=== PATIENT | male | born 1945 | race Caucasian/White ===

== ENCOUNTER 2017-04-10 07:30 | Inpatient (IN) | payer MEDICARE, OTHER ==
[~2017-04-10] VITALS: Ht 182.9 cm; Wt 63.7 kg
[2017-05-25] VITALS (28 sets, daily range): BP systolic 82–150; BP diastolic 60–85; PULSE 66–96; RESP 16–22; Ht 182.9 cm; Wt 63.7 kg
[2017-05-25] MEDS ORDERED: CEFAZOLIN 1 GM INJ ONE (07:00)
[2017-05-25] MEDS ORDERED: SUGAMMADEX SODIUM 200 MG/2 ML VIAL IV ONE (07:00)
[2017-05-25] MEDS ORDERED: MORP15TA92 PO (08:03)
--- NOTE | 2017-05-25 08:03 | HPN ---
Date/Time of Note Date/Time of Note DATE: 05/25/17 TIME: 08:03 Interval H&P Admission Note Pt. seen H&P reviewed: No system changes KARYN LOGAN MD May 25, 2017 08:03
[2017-05-25] MEDS ORDERED: METF500T4 PO (08:05)
[2017-05-25] MEDS ORDERED: LISI10TA2 PO (08:06)
[2017-05-25] MEDS ORDERED: THROMBIN 5000 UNIT VIAL ONE (08:16)
[2017-05-25] MEDS ORDERED: GELATIN SIZE 100 SPONGE ONE (08:16)
[2017-05-25] MEDS ORDERED: BUPIVACAINE 0.25%/EPI (SDV) 30 ML INJ ONE (08:16)
[2017-05-25] MEDS ORDERED: POLYMYXIN/BACITRACIN 1L IRRIG ONE (08:16)
[2017-05-25 08:42] LABS: INR 0.98
[2017-05-25 08:43] LABS: PARTIAL THROMBOPLASTIN TIME 31.5 Sec (25.0-35.0)
[2017-05-25 08:53] LABS: ALBUMIN 4.7 g/dl (3.3-4.9); ALBUMIN/GLOBULIN RATIO 1.42; BASOPHIL # 0.1 10^3/ul (0.0-0.1); BASOPHILS % 0.6 % (0.0-2.0); BILIRUBIN,INDIRECT 0.2 mg/dl (0-1.1); BILIRUBIN,TOTAL 0.2 mg/dl (0.2-1.3); EOSINOPHILS # 0.3 10^3/ul (0.0-0.5); EOSINOPHILS % 1.9 % (0.0-7.0); HEMATOCRIT 44.2 % (42.0-52.0); HEMOGLOBIN 14.3 g/dl (14.0-18.0); LYMPHOCYTES # 1.9 10^3/ul (0.8-2.9); LYMPHOCYTES % 13.7 % (15.0-51.0); MEAN CORPUSCULAR HEMOGLOBIN 30.1 pg (29.0-33.0); MEAN CORPUSCULAR HGB CONC 32.4 g/dl (32.0-37.0); MEAN CORPUSCULAR VOLUME 93.1 fl (82.0-101.0); MEAN PLATELET VOLUME 10.8 fl (7.4-10.4); MONOCYTE # 0.9 10^3/ul (0.3-0.9); NEUTROPHIL # 10.3 10^3/ul (1.6-7.5); NEUTROPHILS % 76.4 % (39.0-77.0); PLATELET COUNT 535 10^3/UL (140-415); RED BLOOD COUNT 4.75 10^6/ul (4.70-6.10); RED CELL DISTRIBUTION WIDTH 13.9 % (11.5-14.5); WHITE BLOOD COUNT 13.5 10^3/ul (4.8-10.8)
[2017-05-25 09:03] LABS: CALCIUM 10.1 mg/dl (8.4-10.2); CREATININE 0.77 mg/dl (0.61-1.24); POTASSIUM 4.1 mmol/L (3.5-5.1)
[2017-05-25] MEDS ORDERED: MIDAZOLAM 1 MG/ML 2 ML INJ ONE (09:06)
[2017-05-25] MEDS ORDERED: ROCURONIUM 50 MG INJ ONE (09:06)
[2017-05-25] MEDS ORDERED: GLYCOPYRROLATE 1 MG INJ ONE (09:06)
[2017-05-25] MEDS ORDERED: PROPOFOL 20 ML ONE (09:06)
[2017-05-25] MEDS ORDERED: LIDOCAINE 2% (SDV) 5 ML INJ ONE (09:06)
[2017-05-25] MEDS ORDERED: NEOSTIGMINE 3 MG/3 ML SYRINGE ONE (09:06)
[2017-05-25] MEDS ORDERED: FENTAnyl 50 MCG/ML VIAL ONE (09:07)
[2017-05-25] MEDS ORDERED: ONDANSETRON 4 MG INJ ONE (09:07)
[2017-05-25] MEDS ORDERED: DEXAMETHASONE 4 MG/ML 1 ML INJ ONE (09:07)
[2017-05-25] MEDS ORDERED: LABETALOL HCL 20MG INJ ONE (10:28)
--- NOTE | 2017-05-25 13:18 | OPR ---
Date/Time of Note Date/Time of Note DATE: 05/25/17 TIME: 13:12 Operative Report Free Text/Dictation DATE OF OPERATION: 05/25/2017 PREOPERATIVE DIAGNOSES: L3-4 spinal stenosis with neurogenic claudication POSTOPERATIVE DIAGNOSES: L3-4 spinal stenosis with neurogenic claudication OPERATION PERFORMED: L4-5 bilateral laminectomy, medial facetectomy, and foraminotomy SURGEON: Karyn Logan MD ANESTHESIA: General endotracheal ESTIMATED BLOOD LOSS: 100 mL SURGICAL INDICATION: The patient is a 72 year-old male who presents with a chronic history of worsening bilateral lower extremity pain that is exacerbated with walking and relieved with rest and lumbar flexion. The patient was unable to ambulate significant distances secondary to their pain. He was found to have severe spinal stenosis at L3-4 with a grade 1 degenerative spondylolisthesis which appeared stable on flexion-extension films. Risks, benefits, and alternatives to a decompressive procedure with possible instrumented fusion including but not exclusive of risks of bleeding, infection, nerve injury, cauda equina syndrome, iatrogenic instability requiring future fusion, dural tear, myocardial infarction, stroke, pulmonary embolism were explained to the patient, and he wished to proceed. He reported that he would like to avoid a fusion given the longer recovery and associated risks. DESCRIPTION OF TECHNIQUE: The patient was identified in the preoperative area and taken to the operating room. Rapid induction of general endotracheal anesthesia was performed. Patient was given 2 g of cefazolin for prophylaxis. The patient was then placed in the prone position on the Hugo table on top of a Farzad frame with all bony prominences well padded. The back was prepped and draped in usual sterile manner. Using a spinal needle and intraoperative fluoroscopy, the L3-4 level was clearly identified. The skin was injected using 0.25% Marcaine with epinephrine. Longitudinal midline incision was then created using a 10 blade. Further dissection through soft tissue was performed using electrocautery down to the spinous processes bilaterally. Dissection was taken down the bilateral lamina and over the facet joint capsule. A self-retaining retractor was applied. Again, intraoperative fluoroscopy confirmed the level. A rongeur was used to remove a portion of the L3 spinous process and the interspinous ligaments. We identified the interlaminar window. The microscope was brought into use for microdissection. The high-speed bur was used to thin the L3 lamina. Kerrison rongeurs were then used to resect a portion of the bilateral laminae, and a portion of the bilateral medial facets and the bone overlying the foramens. Ligamentum flavum was also resected using the Kerrison rongeurs. Care was taken to protect the thecal sac throughout the decompressive procedure. Palpation with a ball-tip probe did not reveal any further stenosis in the central, subarticular, or foraminal areas. The bilateral L3 and L4 pedicles were palpated using a rigo to ensure a pedicle to pedicle decompression. The exiting L3 nerve root and traversing L4 nerve roots were both directly visualized and noted to be decompressed. The cephalad and caudad extent of the decompression were also confirmed using ball-tip probes and intraoperative fluoroscopy. The wound was irrigated copiously using normal saline. Meticulous attention was paid toward hemostasis using bipolar cautery, FloSeal and thrombin. Care was taken to remove all FloSeal prior to wound closure. The fascia was then closed using 0 Vicryl in interrupted fashion. Subcutaneous tissue was closed using 2-0 Vicryl in interrupted fashion. Skin was closed using a running 4-0 Monocryl stitch. The wound was dressed using Dermabond, sterile gauze and Tegaderm. The patient was returned to the supine position. They were extubated immediately postoperatively and taken to the recovery room in stable condition. COMPLICATIONS: None. Estimated Blood Loss: 100 - 150 ml's Complications: None Pt Condition Post Procedure: stable Disposition: PACU KARYN LOGAN MD May 25, 2017 13:18
[2017-05-25] MEDS ORDERED: ONDANSETRON 4 MG INJ IV PRN (13:30)
[2017-05-25] MEDS ORDERED: NACL 0.9% 3 ML SYG IV SCH (13:30)
[2017-05-25] MEDS ORDERED: NALOXONE (0.4 MG/ML) INJ IV PRN (13:30)
[2017-05-25] MEDS ORDERED: HYDROCODONE/APAP (5/325) TAB PO PRN (13:30)
[2017-05-25] MEDS ORDERED: HYDROmorphONE 1 MG/ML SYG IV PRN (13:30)
[2017-05-25] MEDS ORDERED: ACETAMINOPHEN 325 MG TAB PO PRN (13:30)
[2017-05-25] MEDS ORDERED: HYDROmorphONE 1 MG/ML SYG IV STA (14:04)
[2017-05-25] MEDS ORDERED: HYDROmorphONE (0.2 MG/ML) 10ML SYG IV ONE (14:06)
--- NOTE | 2017-05-25 15:16 | RADRPT ---
PROCEDURE: Intraoperative fluoroscopy. CLINICAL INDICATION: Intraoperative fluoroscopy during L3-4 decompression. TECHNIQUE: 5 spot intraoperative fluoroscopic images were provided. The images were reviewed on a high-resolution PACS workstation. COMPARISON: None available FINDINGS: Multiple spot intraoperative fluoroscopic views were provided during L3-4 decompression. The images demonstrate initial metallic probe at the L3-4 level. Of note, the lowest intervertebral discs is at L5-S1. Subsequent images demonstrate metallic instrumentation at the level of L3-4. The total f luoroscopy time was 8.7 seconds. IMPRESSION: 1. Multiple spot intraoperative fluoroscopic views during lumbar spine surgery were provided. 2. Please see operative report of the same day for further information. RPTAT: HGAS .Quinton Guzmán MD, Date Time Electronically viewed and signed by .Quinton Guzmán MD, on 05/25/2017 15:16 .S/
[2017-05-25] MEDS: CEFAZOLIN 1 GM/50 ML (PMX) 50 ML IVPB SCH ×2 (17:53→23:55)
[2017-05-25] MEDS ORDERED: TAMSULOSIN (SR) 0.4 MG CAP PO ONE (18:00)
--- NOTE | 2017-05-25 19:18 | CONS ---
Date/Time of Note Date/Time of Note DATE: 05/25/17 TIME: 19:08 Assessment/Plan Assessment/Plan Problems: (1) Type 2 diabetes mellitus without complications Status: Chronic Comment: Cont. metformin. Diabetic diet. Check A1c. Check fasting lipids. Monitor glucose via FS. If not at goal, adjust therapy. (2) Essential (primary) hypertension Status: Chronic Comment: Cont. lisinopril and monitor (3) Lumbar spinal stenosis Status: Resolved Comment: Per primary team (4) Aftercare following surgery of the musculoskeletal system Status: Acute Comment: Doing well POD#0. Pain controlled. PT and pain management per primary team. Pt. stable from medical standpoint. Will monitor for medical issues should they arise. Consultation Date/Type/Reason Admit Date/Time May 25, 2017 at 06:41 Date of Consultation: May 25, 2017 Type of Consultation: Medicine Reason for Consultation Medical Management Referring Provider: KARYN LOGAN MD Hx of Present Illness 72 y/o C M w/ h/o T2DM and HTN in [facility] until 30-40 y. 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 Has suffered chronic back pain since then. Has sought help of chiropractic which was useful but never curative. Pt. was forced to retire 4 y. ago when he was overcome by pain radiating down his legs and could no longer stand at his carroll chair for haircuts. Since then pt. continued to suffer until saw new PMD recently who referred him to ortho who performed MRI and decided spinal stenosis was surgical. Pt. had lumbar lami today and is POD#0 and doing well. Constitutional: improved, no complaints Eyes: no complaints ENT: no complaints Respiratory: no complaints Cardiovascular: no complaints Gastrointestinal: no complaints Genitourinary: no complaints Musculoskeletal: other (pains in legs he feels is residual from yesterday) Neurologic: no complaints Past Medical History Medical History: diabetes, hypertension, other (alcoholic hepatitis) Past Surgical History Past Surgical Hx: other (R knee meniscecktomy) Family History Significant Family History: hypertension (father) Social History b. 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, , no children Alcohol Use: sober (previously heavy) Smoking Status: Former smoker (3.5 ppd x 14 y, quit 1969) Drug Use: marijuana (both therapeutic and recreational) Exam/Review of Systems Vital Signs Vitals VS - Last 72 Hours, by Label Date Time Temp Pulse Resp B/P Pulse Ox O2 Delivery O2 Flow Rate FiO2 05/25/17 16:00 80 135/72 05/25/17 15:45 81 134/81 05/25/17 15:30 85 137/79 05/25/17 15:15 75 129/73 05/25/17 15:05 97.7 72 18 125/74 99 05/25/17 15:00 84 121/79 05/25/17 14:45 87 131/70 05/25/17 14:30 74 130/70 05/25/17 14:16 68 17 117/72 98 Room Air 05/25/17 14:15 78 138/71 05/25/17 14:11 70 17 115/69 100 Room Air 05/25/17 14:06 68 17 112/75 98 Room Air 05/25/17 14:01 70 17 132/74 99 Room Air 05/25/17 14:00 73 133/68 05/25/17 13:56 66 17 125/75 99 Room Air 05/25/17 13:51 66 18 138/73 99 Room Air 05/25/17 13:46 68 18 122/73 100 Room Air 05/25/17 13:45 72 125/74 05/25/17 13:41 70 17 117/68 99 Room Air 05/25/17 13:36 70 17 122/74 98 Room Air 05/25/17 13:31 76 17 117/62 99 Room Air 05/25/17 13:29 78 17 124/69 100 Room Air 05/25/17 13:26 76 17 82/61 100 Room Air 05/25/17 13:21 78 17 109/60 100 Room Air 05/25/17 13:16 98.2 70 18 122/74 99 Room Air 05/25/17 08:40 97.6 96 16 129/82 97 Room Air Vital Signs Date Time Temp Pulse Resp B/P Pulse Ox O2 Delivery O2 Flow Rate FiO2 05/25/17 16:00 80 135/72 05/25/17 15:05 97.7 18 99 05/25/17 14:16 Room Air Exam Constitutional: alert, oriented, well developed Psych: nl mood/affect, no complaints Eyes: EOMI, PERRL, nl conjunctiva, nl lids, nl sclera ENMT: mucosa pink and moist, nl external ears & nose Neck: non-tender, supple, No bruits, No masses, No thyromegaly Respiratory: clear to auscultation, normal air movement Cardiovascular: nl pulses, regular rate and rhythm, No edema, No murmurs/extra sounds, No rub Gastrointestinal: bowel sounds, nl liver, spleen, non-tender, soft, No mass, No rebound or guarding Musculoskeletal: nl extremities to inspection Extremities: normal pulses, No clubbing, No cyanosis, No edema Neurological: 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 MANAGER II-XII intact, nl mental status, nl speech, nl strength Results Result Diagram: 05/25/17 0800 05/25/17 0800 Results 24 hrs Laboratory Tests Test 05/25/17 08:00 05/25/17 08:26 05/25/17 13:32 White Blood Count 13.5 H Red Blood Count 4.75 Hemoglobin 14.3 Hematocrit 44.2 Mean Corpuscular Volume 93.1 Mean Corpuscular Hemoglobin 30.1 Mean Corpuscular Hemoglobin Concent 32.4 Red Cell Distribution Width 13.9 Platelet Count 535 H Mean Platelet Volume 10.8 H Neutrophils % 76.4 Lymphocytes % 13.7 L Monocytes % 7.0 Eosinophils % 1.9 Basophils % 0.6 Nucleated Red Blood Cells % 0.0 Neutrophils # 10.3 H Lymphocytes # 1.9 Monocytes # 0.9 Eosinophils # 0.3 Basophils # 0.1 Nucleated Red Blood Cells # 0.0 Prothrombin Time 13.0 Prothrombin Time Ratio 1.0 INR International Normalized Ratio 0.98 Activated Partial Thromboplast Time 31.5 Sodium Level 145 H Potassium Level 4.1 Chloride Level 103 Carbon Dioxide Level 27 Anion Gap 19 H Blood Urea Nitrogen 23 H Creatinine 0.77 Glucose Level 164 Calcium Level 10.1 Total Bilirubin 0.2 Direct Bilirubin 0.00 Indirect Bilirubin 0.2 Aspartate Amino Transf (AST/SGOT) 23 Alanine Aminotransferase (ALT/SGPT) 21 Alkaline Phosphatase 115 Total Protein 8.0 Albumin 4.7 Globulin 3.30 H Albumin/Globulin Ratio 1.42 Bedside Glucose 164 146 Medications Medications Current Medications Acetaminophen/ Hydrocodone Bitart ([place] (5/325)) 1 tab Q4H PRN PO PAIN LEVEL 1 -5; Start 05/25/17 at 13:30 Acetaminophen/ Hydrocodone Bitart 2 tab 2 tab Q4H PRN PO PAIN LEVEL 6-10; Start 05/25/17 at 13:30 Cefazolin Sodium (Ancef 1 Gm/50 ml (Pmx)) 50 ml @ 100 mls/hr Q6 IVPB Last administered on 05/25/17t 17:53; Admin Dose 100 MLS/HR; Start 05/25/17 at 18:00 ; Stop 05/26/17 at 12:29 Ondansetron HCl (Zofran Inj) 4 mg Q6H PRN IV NAUSEA AND/OR VOMITING; Start at 13:30 Acetaminophen (Tylenol Tab) 650 mg Q4H PRN PO TEMP GREATER THAN 101F OR HAILE; Start 05/25/17 at 13:30 Naloxone HCl (Narcan) 0.2 mg Q2M PRN IV RR 8 BREATHS/MIN OR LESS; Start at 13:30 Hydromorphone HCl (Dilaudid) 1 mg Q4H PRN IV PAIN; Start 05/25/17 at 13:30 Lisinopril (Zestril) 10 mg DAILY PO ; Start 05/26/17 at 09:00 SAMANTA FRAIRE MD May 25, 2017 19:18
[2017-05-25] MEDS ORDERED: DEXTROSE 50% 50 ML SYRINGE IV PRN ×2 (19:30)
[2017-05-25] MEDS ORDERED: GLUCAGON 1 MG INJ IM PRN (19:30)
[2017-05-25] MEDS ORDERED: GLUCOSE GEL 15 GRAM TUBE BUCCAL PRN (19:30)
[2017-05-25] MEDS ORDERED: GLUCOSE GEL 15 GRAM TUBE PO PRN ×2 (19:30)
[2017-05-25] MEDS: INSULIN ASPART [NOVOLOG] 3 ML PEN SC SCH (21:00)
[2017-05-25] MEDS: HYDROCODONE/APAP (5/325) TAB PO PRN (21:36)
[2017-05-26] MEDS ORDERED: ACCU-CHEK XX SCH ×2 (02:00)
[2017-05-26] MEDS: HYDROCODONE/APAP (5/325) TAB PO PRN ×3 (04:11→17:10)
[2017-05-26 05:20] VITALS: BP 142/78; PULSE 100
[2017-05-26] MEDS: CEFAZOLIN 1 GM/50 ML (PMX) 50 ML IVPB SCH ×2 (05:20→13:23)
[2017-05-26 05:36] LABS: HEMATOCRIT 27.8 % (42.0-52.0); HEMOGLOBIN 10.5 g/dl (14.0-18.0)
[2017-05-26 06:12] LABS: CALCIUM 8.9 mg/dl (8.4-10.2); CREATININE 0.73 mg/dl (0.61-1.24); POTASSIUM 3.7 mmol/L (3.5-5.1)
[2017-05-26 06:55] LABS: CHOL/HDL RATIO 3.4 RATIO
[2017-05-26] MEDS ORDERED: metFORMIN 500 MG TAB PO SCH (07:50)
[2017-05-26] MEDS: INSULIN ASPART [NOVOLOG] 3 ML PEN SC SCH ×2 (07:50→11:40)
[2017-05-26 08:28] VITALS: BP 118/56; RESP 20
[2017-05-26] MEDS ORDERED: LISINOPRIL 10 MG TAB PO SCH (09:00)
--- NOTE | 2017-05-26 12:31 | CONS ---
Date/Time of Note Date/Time of Note DATE: 05/26/17 TIME: 12:25 Consultation Date/Type/Reason Admit Date/Time May 25, 2017 at 06:41 Initial Consult Date 05/25/17 Type of Consultation: Ortho Spine Progress Note Referring Provider: KARYN LOGAN MD 24 HR Interval Summary Free Text/Dictation S: 72 yo Male POD#1 s/p L3-4 decompression for severe spinal stenosis. Patient had no acute events over-night. Was OOB today with PT who is recommending rehab. His pain is being well controlled with PO meds. Urinating well after freitas removal yesterday. O: Tm 98.4, HR: 80-107, BP: 118-150/56-85, Hemovac: 145 in 24 hours (5 mL in last 5 hrs) Gen: AAOx3, NAD Spine: Incision C/D/I, 4/5 B/L HF/KE/TA/GS/EHL, +SILT L3-S1 b/l Labs: H&H 10.5/27.8 A/P:72 yo Male POD#1 s/p L3-4 decompression for severe spinal stenosis. 1. Consult for rehab (pt lives on own and has not been ambulatory for past several years, he ambulates around house with walker.) 2. appreciate med recs Diabetes 3. OOB and WBAT w/ walker w/ PT 4. Continue PO pain control w/ [place] 5. Transfer to rehab when accepted 6. D/C drain Exam/Review of Systems Vital Signs Vitals Vital Signs Date Time Temp Pulse Resp B/P Pulse Ox O2 Delivery O2 Flow Rate FiO2 05/26/17 08:28 98.1 104 20 118/56 99 05/25/17 14:16 Room Air Intake and Output 05/25/17 05/25/17 05/26/17 15:00 23:00 07:00 Intake Total 1700 ml 440 ml 650 ml Output Total 175 ml 360 ml 410 ml Balance 1525 ml 80 ml 240 ml Results Result Diagram: 05/26/17 0442 05/26/17 0442 Results 24 hrs Laboratory Tests Test 05/25/17 13:32 05/25/17 20:02 05/26/17 04:42 05/26/17 08:18 Bedside Glucose 146 176 115 Hemoglobin 10.5 #L Hematocrit 27.8 #L Sodium Level 140 Potassium Level 3.7 Chloride Level 102 Carbon Dioxide Level 26 Anion Gap 16 Blood Urea Nitrogen 24 H Creatinine 0.73 Glucose Level 124 # Hemoglobin A1c 5.5 Calcium Level 8.9 Triglycerides Level 65 Cholesterol Level 107 LDL Cholesterol, Calculated 63 HDL Cholesterol 31 Cholesterol/HDL Ratio 3.4 Medications Medications Current Medications Acetaminophen/ Hydrocodone Bitart ([place] (5/325)) 1 tab Q4H PRN PO PAIN LEVEL 1 -5; Start 05/25/17 at 13:30 Acetaminophen/ Hydrocodone Bitart 2 tab 2 tab Q4H PRN PO PAIN LEVEL 6-10 Last administered on 05/26/17 08:56; Admin Dose 2 TAB; Start 05/25/17 at 13:30 Cefazolin Sodium (Ancef 1 Gm/50 ml (Pmx)) 50 ml @ 100 mls/hr Q6 IVPB Last administered on 05/26/17 05:20; Admin Dose 100 MLS/HR; Start 05/25/17 at 18:00 ; Stop 05/26/17 at 12:29 Ondansetron HCl (Zofran Inj) 4 mg Q6H PRN IV NAUSEA AND/OR VOMITING; Start at 13:30 Acetaminophen (Tylenol Tab) 650 mg Q4H PRN PO TEMP GREATER THAN 101F OR HAILE; Start 05/25/17 at 13:30 Naloxone HCl (Narcan) 0.2 mg Q2M PRN IV RR 8 BREATHS/MIN OR LESS; Start at 13:30 Hydromorphone HCl (Dilaudid) 1 mg Q4H PRN IV PAIN Last administered on 07:02; Admin Dose 1 MG; Start 05/25/17 at 13:30 Lisinopril (Zestril) 10 mg DAILY PO Last administered on 05/26/17 08:57; Admin Dose 10 MG; Start 05/26/17 at 09:00 Diagnostic Test (Pha) (Accu-Chek) 1 ea 02 XX ; Start 05/26/17 at 02:00 Miscellaneous Information 1 ea NOTE XX ; Start 05/25/17 at 19:30 Glucose (Glutose) 15 gm Q15M PRN PO DECREASED GLUCOSE; Start 05/25/17 at 19:30 Glucose (Glutose) 22.5 gm Q15M PRN PO DECREASED GLUCOSE; Start 05/25/17 at 19: 30 Dextrose (D50w Syringe) 25 ml Q15M PRN IV DECREASED GLUCOSE; Start 05/25/17 at 19:30 Dextrose (D50w Syringe) 50 ml Q15M PRN IV DECREASED GLUCOSE; Start 05/25/17 at 19:30 Glucagon (Glucagen) 1 mg Q15M PRN IM DECREASED GLUCOSE; Start 05/25/17 at 19:30 Glucose (Glutose) 15 gm Q15M PRN BUCCAL DECREASED GLUCOSE; Start 05/25/17 at 19 :30 KARYN LOGAN MD May 26, 2017 12:31
--- NOTE | 2017-05-26 14:24 | CONS ---
Date/Time of Note Date/Time of Note DATE: 05/26/17 TIME: 14:17 Assessment/Plan Assessment/Plan Problems: (1) Type 2 diabetes mellitus without complications Status: Chronic Comment: Excellent glycemic control. Home control excellent on metformin. Cont. metformin. (2) Essential (primary) hypertension Status: Chronic Comment: Excellent BP control. Cont. current regimen (3) Aftercare following surgery of the musculoskeletal system Status: Acute Comment: Doing well POD#1 w/ good pain control. However, ambulation was not optimal and pt. will need rehab. Primary team planning ARU transfer. Consultation Date/Type/Reason Admit Date/Time May 25, 2017 at 06:41 Initial Consult Date 05/25/17 Type of Consultation: Medicine Reason for Consultation Medical Management Referring Provider: KARYN LOGAN MD 24 HR Interval Summary Constitutional: improved, no complaints Detailed Summary Respiratory: no complaints Cardiovascular: no complaints Gastrointestinal: no complaints Genitourinary: no complaints Musculoskeletal: bone/joint pain (Pain 3/10 when ambulating. Weak on his feet. ) Neurologic: no complaints Exam/Review of Systems Vital Signs Vitals VS - Last 72 Hours, by Label Date Time Temp Pulse Resp B/P Pulse Ox O2 Delivery O2 Flow Rate FiO2 05/26/17 08:28 98.1 104 20 118/56 99 05/26/17 05:20 98.2 100 142/78 99 05/25/17 23:22 98.4 107 20 150/85 97 05/25/17 19:59 98.1 100 22 145/76 100 05/25/17 16:00 80 135/72 05/25/17 15:45 81 134/81 05/25/17 15:30 85 137/79 05/25/17 15:15 75 129/73 05/25/17 15:05 97.7 72 18 125/74 99 05/25/17 15:00 84 121/79 05/25/17 14:45 87 131/70 05/25/17 14:30 74 130/70 05/25/17 14:16 68 17 117/72 98 Room Air 05/25/17 14:15 78 138/71 05/25/17 14:11 70 17 115/69 100 Room Air 05/25/17 14:06 68 17 112/75 98 Room Air 05/25/17 14:01 70 17 132/74 99 Room Air 05/25/17 14:00 73 133/68 05/25/17 13:56 66 17 125/75 99 Room Air 05/25/17 13:51 66 18 138/73 99 Room Air 05/25/17 13:46 68 18 122/73 100 Room Air 05/25/17 13:45 72 125/74 05/25/17 13:41 70 17 117/68 99 Room Air 05/25/17 13:36 70 17 122/74 98 Room Air 05/25/17 13:31 76 17 117/62 99 Room Air 05/25/17 13:29 78 17 124/69 100 Room Air 05/25/17 13:26 76 17 82/61 100 Room Air 05/25/17 13:21 78 17 109/60 100 Room Air 05/25/17 13:16 98.2 70 18 122/74 99 Room Air 05/25/17 08:40 97.6 96 16 129/82 97 Room Air Vital Signs Date Time Temp Pulse Resp B/P Pulse Ox O2 Delivery O2 Flow Rate FiO2 05/26/17 08:28 98.1 104 20 118/56 99 05/25/17 14:16 Room Air Intake and Output 05/25/17 05/25/17 05/26/17 14:59 22:59 06:59 Intake Total 1700 ml 440 ml 650 ml Output Total 175 ml 360 ml 410 ml Balance 1525 ml 80 ml 240 ml Exam Constitutional: alert, oriented, well developed Respiratory: clear to auscultation, normal air movement Cardiovascular: nl pulses, regular rate and rhythm, No edema, No murmurs/extra sounds, No rub Gastrointestinal: bowel sounds, nl liver, spleen, non-tender, soft, No mass, No rebound or guarding Musculoskeletal: nl extremities to inspection Extremities: normal pulses, No clubbing, No cyanosis, No edema 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, nl mental status, nl speech, nl strength Additional Comments Bedside Glucose - 72 Hours Test 05/25/17 08:26 05/25/17 13:32 05/25/17 20:02 05/26/17 08:18 Bedside Glucose 164mg/dL (70-220) 146mg/dL (70-220) 176mg/dL (70-220) 115mg/dL (70-220) Test 05/26/17 13:15 Bedside Glucose 116mg/dL (70-220) Results Result Diagram: 05/26/17 0442 05/26/17 0442 Results 24 hrs Laboratory Tests Test 05/25/17 20:02 05/26/17 04:42 05/26/17 08:18 05/26/17 13:15 Bedside Glucose 176 115 116 Hemoglobin 10.5 #L Hematocrit 27.8 #L Sodium Level 140 Potassium Level 3.7 Chloride Level 102 Carbon Dioxide Level 26 Anion Gap 16 Blood Urea Nitrogen 24 H Creatinine 0.73 Glucose Level 124 # Hemoglobin A1c 5.5 Calcium Level 8.9 Triglycerides Level 65 Cholesterol Level 107 LDL Cholesterol, Calculated 63 HDL Cholesterol 31 Cholesterol/HDL Ratio 3.4 Medications Medications Current Medications Acetaminophen/ Hydrocodone Bitart ([place] (5/325)) 1 tab Q4H PRN PO PAIN LEVEL 1 -5; Start 05/25/17 at 13:30 Acetaminophen/ Hydrocodone Bitart ([place] (5/325)) 2 tab Q4H PRN PO PAIN LEVEL 6 -10 Last administered on 05/26/17 08:56; Admin Dose 2 TAB; Start 05/25/17 at 13 :30 Ondansetron HCl (Zofran Inj) 4 mg Q6H PRN IV NAUSEA AND/OR VOMITING; Start at 13:30 Acetaminophen (Tylenol Tab) 650 mg Q4H PRN PO TEMP GREATER THAN 101F OR HAILE; Start 05/25/17 at 13:30 Naloxone HCl (Narcan) 0.2 mg Q2M PRN IV RR 8 BREATHS/MIN OR LESS; Start at 13:30 Hydromorphone HCl (Dilaudid) 1 mg Q4H PRN IV PAIN Last administered on 07:02; Admin Dose 1 MG; Start 05/25/17 at 13:30 Lisinopril (Zestril) 10 mg DAILY PO Last administered on 05/26/17 08:57; Admin Dose 10 MG; Start 05/26/17 at 09:00 Diagnostic Test (Pha) (Accu-Chek) 1 ea 02 XX ; Start 05/26/17 at 02:00 Miscellaneous Information 1 ea NOTE XX ; Start 05/25/17 at 19:30 Glucose (Glutose) 15 gm Q15M PRN PO DECREASED GLUCOSE; Start 05/25/17 at 19:30 Glucose (Glutose) 22.5 gm Q15M PRN PO DECREASED GLUCOSE; Start 05/25/17 at 19: 30 Dextrose (D50w Syringe) 25 ml Q15M PRN IV DECREASED GLUCOSE; Start 05/25/17 at 19:30 Dextrose (D50w Syringe) 50 ml Q15M PRN IV DECREASED GLUCOSE; Start 05/25/17 at 19:30 Glucagon (Glucagen) 1 mg Q15M PRN IM DECREASED GLUCOSE; Start 05/25/17 at 19:30 Glucose (Glutose) 15 gm Q15M PRN BUCCAL DECREASED GLUCOSE; Start 05/25/17 at 19 :30 SAMANTA FRAIRE MD May 26, 2017 14:24
[2017-05-26 16:18] VITALS: BP 110/56; RESP 20
[2017-05-29 13:59] VITALS: BP 143/61; RESP 20
== END 2017-05-26 17:15 | DRG 517 ==
LOC: EDSTATUS 12:00 → REC 05-25 06:41 → MS1 05-25 14:20
PROVIDERS: ADMIT Orthopaedic Surgery; ATTEND Orthopaedic Surgery
PROC: 01NB0ZZ Release Lumbar Nerve, Open Approach (ICD-10-PCS; principal; 2017-05-25 09:00)
DX: M48.06 Spinal stenosis, lumbar region (principal); E11.9 Type 2 diabetes mellitus without complications; I10 Essential (primary) hypertension; M43.16 Spondylolisthesis, lumbar region; I25.10 Atherosclerotic heart disease of native coronary artery without angina pectoris; E78.5 Hyperlipidemia, unspecified; I25.2 Old myocardial infarction; Z87.891 Personal history of nicotine dependence; F12.90 Cannabis use, unspecified, uncomplicated; Z79.84 Long term (current) use of oral hypoglycemic drugs; Z95.5 Presence of coronary angioplasty implant and graft
CPT/HCPCS: 72100; 80048; 80053; 80061; 82962; 83036; 85014; 85018; 85025; 85610; 85730; 86850; 86900; 86901; 87086; 97116; 97162; 97530; J0690; J1100; J1170; J1644; J1815; J2250; J2405; J2710; J3010

== ENCOUNTER 2017-05-26 17:11 | Inpatient (IN) | payer MEDICARE, OTHER ==
[~2017-05-26] VITALS: Ht 182.9 cm; Wt 67.0 kg
[~2017-05-26 17:11] MED LIST: LISI10TA2 PO; METF500T4 PO; MORP15TA92 PO
[2017-05-26] MEDS ORDERED: ACETAMINOPHEN 325 MG TAB PO PRN (17:57)
[2017-05-26] MEDS ORDERED: GLUCOSE GEL 15 GRAM TUBE BUCCAL PRN (17:57)
[2017-05-26] MEDS ORDERED: NACL 0.9% 3 ML SYG IV SCH (17:57)
[2017-05-26] MEDS ORDERED: GLUCOSE GEL 15 GRAM TUBE PO PRN ×2 (17:57)
[2017-05-26] MEDS ORDERED: ONDANSETRON 4 MG INJ IV PRN (17:57)
[2017-05-26] MEDS ORDERED: metFORMIN 500 MG TAB PO SCH (17:57)
[2017-05-26] MEDS ORDERED: DEXTROSE 50% 50 ML SYRINGE IV PRN ×2 (17:57)
[2017-05-26] MEDS ORDERED: GLUCAGON 1 MG INJ IM PRN (17:57)
[2017-05-26 18:45] VITALS: BP 125/65; PULSE 88; RESP 18
[2017-05-26] MEDS: HYDROmorphONE 1 MG/ML SYG IV PRN (19:10)
[2017-05-26 19:50] VITALS: BP 129/72; RESP 18
[2017-05-26] MEDS: INSULIN ASPART [NOVOLOG] 3 ML PEN SC SCH (21:00)
[2017-05-26] MEDS: HYDROCODONE/APAP (5/325) TAB PO PRN (21:37)
[2017-05-27] MEDS: ACCU-CHEK XX SCH (02:00)
[2017-05-27 02:11] VITALS: BP 125/68; RESP 18
[2017-05-27 06:58] VITALS: Ht 182.9 cm; Wt 67.0 kg
[2017-05-27 07:30] VITALS: BP 146/81; RESP 20
[2017-05-27] MEDS: INSULIN ASPART [NOVOLOG] 3 ML PEN SC SCH ×4 (07:35→21:00)
[2017-05-27 07:57] LABS: ALBUMIN 3.5 g/dl (3.3-4.9); ALBUMIN/GLOBULIN RATIO 1.25; BILIRUBIN,INDIRECT 0.4 mg/dl (0-1.1); BILIRUBIN,TOTAL 0.4 mg/dl (0.2-1.3); CALCIUM 8.8 mg/dl (8.4-10.2); CREATININE 0.74 mg/dl (0.61-1.24); POTASSIUM 3.9 mmol/L (3.5-5.1); TOTAL PROTEIN 6.3 g/dl (6.1-8.1)
[2017-05-27 07:59] LABS: ABNORMAL IP MESSAGE 1; BASOPHIL # 0.1 10^3/ul (0.0-0.1); BASOPHILS % 0.4 % (0.0-2.0); HEMATOCRIT 34.9 % (42.0-52.0); HEMOGLOBIN 11.6 g/dl (14.0-18.0); LYMPHOCYTES # 1.5 10^3/ul (0.8-2.9); LYMPHOCYTES % 7.2 % (15.0-51.0); MEAN CORPUSCULAR HEMOGLOBIN 31.4 pg (29.0-33.0); MEAN CORPUSCULAR HGB CONC 33.2 g/dl (32.0-37.0); MEAN PLATELET VOLUME 10.2 fl (7.4-10.4); MONOCYTE # 1.8 10^3/ul (0.3-0.9); MONOCYTES % 8.4 % (0.0-11.0); NEUTROPHIL # 17.6 10^3/ul (1.6-7.5); NEUTROPHILS % 83.2 % (39.0-77.0); PLATELET COUNT 463 10^3/UL (140-415); POSITIVE DIFF @See below; RED CELL DISTRIBUTION WIDTH 14.1 % (11.5-14.5); WHITE BLOOD COUNT 21.1 10^3/ul (4.8-10.8)
[2017-05-27 08:06] LABS: MEAN CORPUSCULAR VOLUME 94.3 fl (82.0-101.0)
[2017-05-27] MEDS: LISINOPRIL 10 MG TAB PO SCH (08:19)
[2017-05-27] MEDS: HYDROCODONE/APAP (5/325) TAB PO PRN ×3 (08:22→19:40)
[2017-05-27] MEDS: metFORMIN 500 MG TAB PO SCH ×2 (09:29→17:37)
--- NOTE | 2017-05-27 10:49 | CONS ---
Date/Time of Note Date/Time of Note DATE: 05/27/17 TIME: 10:45 Assessment/Plan Assessment/Plan Additional Assessment/Plan REHABILITATION POST-ADMISSION PHYSICIAN EVALUATION: REHABILITATION IMPAIRMENT CATEGORY: Lumbar spinal stenosis with spondylolisthesis status post Lumbar Laminectomy ACTIVE COMORBIDITIES: 1.Acute pain Syndrome 2.Anemia 3. Diabetes Mellitus type 2 4. Hypertension 5. Alcoholic Liver Disease 6. Impairments in self-care and mobility PLAN: The patient has been admitted for comprehensive interdisciplinary acute rehab and is anticipated to tolerate 3 hours of daily therapy in divided doses for at least 5/7 days a week. The treatment plan will include: 1. Physical therapy to focus on bed mobility, transfers, and household ambulation with the goal of having the patient reach a standby assist level. 2. Occupational therapy to focus on hygiene, grooming, dressing, bathing, and toileting activities with the goal of having the patient reach a standby assist level. 3. Rehabilitation nursing for carryover of therapeutic interventions, the goal of continent of bowel and bladder, pain under adequate control, and patient and family education with regards to the aforementioned issues ESTIMATED LENGTH OF STAY: 10 days. DISPOSITION GOAL: Home. Rehabilitation Barrier: pain Intervention for barrier: interdisciplinary rehabilitation I acknowledge that I performed a full physical examination on this patient within 24 hours of admission to the rehabilitation unit and believe the patient is a good candidate for comprehensive interdisciplinary rehab care and is anticipated to make reasonable goals in a reasonable period of time as outlined above. Consultation Date/Type/Reason Admit Date/Time May 26, 2017 at 17:11 Hx of Present Illness Patient is a pleasant 72-year-old gentleman with a history of diabetes mellitus type 2 and hypertension who had been noting severe worsening radiating low back back pain despite conservative measures. Workup was consistent with severe spinal stenosis with neurogenic claudication. Patient underwent a decompressive laminectomy on 05/25/2017. His postoperative course has been notable for pain, constipation, anemia, and significant impairments in self- care mobility as compared to baseline. Patient has been cleared to transfer to the rehabilitation unit for conference of interdisciplinary rehab care. Constitutional: No chills, No diaphoresis, No disoriented, No febrile, No improved, No no complaints, No other, No poor po, No requiring IVF, No requiring O2 Eyes: No discharge, No no complaints, No other, No pain, No redness, No visual change ENT: No bleeding, No congestion, No discharge, No dysphagia, No no complaints, No other, No pain, No sore throat Respiratory: No cough, No no complaints, No other, No pain, No pleuritic pain, No shortness of breath, No sputum, No wheezing Cardiovascular: No chest pain, No edema, No lightheadedness, No no complaints, No orthopenea, No other, No palpitations, No paroxysmal nocturnal dyspnea Gastrointestinal: constipation Genitourinary: No bleeding, No discharge, No dysuria, No flank pain, No hematuria, No no complaints, No other Past Medical History Diabetes Mellitus type 2 Hypertension Alcoholic Liver Disease Right Knee Meniscectomy FUNCTIONAL HISTORY: Prior to recent events, the patient was independent in self-care tasks and mobility. Currently, patient requires moderate assist for self-care and mobility tasks. I have reviewed the preadmission screen and the patient's current functional status is consistent with the preadmission screen. SOCIAL HISTORY: The patient lives at home and hopes to return there upon discharge. Past Surgical History Past Surgical Hx: other Social History Smoking Status: Former smoker Exam/Review of Systems Vital Signs Vitals Vital Signs Date Time Temp Pulse Resp B/P Pulse Ox O2 Delivery O2 Flow Rate FiO2 05/27/17 02:11 98.3 78 18 125/68 95 05/26/17 18:45 Room Air Intake and Output 05/26/17 05/26/17 05/27/17 15:00 23:00 07:00 Intake Total 650 ml Balance 650 ml Exam Neurologically the patient is awake and alert and oriented 3 he can follow simple one-step commands. He demonstrates good strength in bilateral upper extremity antigravity strength in bilateral lower extremities including intact dorsiflexion and plantar flexion he does have impaired dynamic balance Constitutional: No alert, No distress, No frail, No non-verbal, No obese, No oriented, No other, No well developed Psych: No anxiety, No confusion, No depression, No nl mood/affect, No no complaints, No other, No suicidal Head: No atraumatic, No hematomas, No lacerations, No normocephalic, No other Eyes: No EOMI, No PERRL, No fundi, disc, No icteric, No nl conjunctiva, No nl lids, No nl sclera, No other Neck: No bruits, No jvd, No masses, No non-tender, No nuchal rigidity, No other , No supple, No thyromegaly Respiratory: No clear to auscultation, No congested cough, No crackles/rales, No diminished breath sounds, No intercostal retraction, No labored breathing, No normal air movement, No other, No respirations, No tactile fremitus, No wheezing Cardiovascular: No S3, No S4, No bruits, No diastolic murmur, No edema, No gallop, No irregular rhythm, No jugular venous distention (JVD), No murmurs/ extra sounds, No nl pulses, No other, No regular rate and rhythm, No rub, No systolic murmur Gastrointestinal: No ascites, No bowel sounds, No distended, No firm, No hepatomegaly, No mass, No nl liver, spleen, No non-tender, No other, No rebound or guarding, No soft, No splenomegaly, No surgical scars, No tender Genitourinary - Male: No CVA tenderness, No discharge, No nl penis, No nl scrotum, No other Results Result Diagram: 05/27/1761505/27/1716 Results 24 hrs Laboratory Tests Test 05/26/17 20:54 05/27/17 06:16 05/27/17 08:01 Bedside Glucose 127 121 White Blood Count 21.1 #H Red Blood Count 3.70 #L Hemoglobin 11.6 L Hematocrit 34.9 #L Mean Corpuscular Volume 94.3 Mean Corpuscular Hemoglobin 31.4 Mean Corpuscular Hemoglobin Concent 33.2 Red Cell Distribution Width 14.1 Platelet Count 463 H Mean Platelet Volume 10.2 Neutrophils % 83.2 H Lymphocytes % 7.2 L Monocytes % 8.4 Eosinophils % 0.0 Basophils % 0.4 Nucleated Red Blood Cells % 0.0 Neutrophils # 17.6 H Lymphocytes # 1.5 Monocytes # 1.8 H Eosinophils # 0.0 Basophils # 0.1 Nucleated Red Blood Cells # 0.0 Sodium Level 140 Potassium Level 3.9 Chloride Level 101 Carbon Dioxide Level 26 Anion Gap 17 H Blood Urea Nitrogen 16 Creatinine 0.74 Glucose Level 89 Calcium Level 8.8 Total Bilirubin 0.4 Direct Bilirubin 0.00 Indirect Bilirubin 0.4 Aspartate Amino Transf (AST/SGOT) 21 Alanine Aminotransferase (ALT/SGPT) 18 Alkaline Phosphatase 87 Total Protein 6.3 # Albumin 3.5 # Globulin 2.80 Albumin/Globulin Ratio 1.25 Medications Medications Current Medications Acetaminophen/ Hydrocodone Bitart ([place] (5/325)) 1 tab Q4H PRN PO PAIN LEVEL 1 -5; Start 05/26/17 at 17:57 Acetaminophen/ Hydrocodone Bitart ([place] (5/325)) 2 tab Q4H PRN PO PAIN LEVEL 6 -10 Last administered on 05/27/17 08:22; Admin Dose 2 TAB; Start 05/26/17 at 17 :57 Ondansetron HCl (Zofran Inj) 4 mg Q6H PRN IV NAUSEA AND/OR VOMITING; Start at 17:57 Acetaminophen (Tylenol Tab) 650 mg Q4H PRN PO TEMP GREATER THAN 101F OR HAILE; Start 05/26/17 at 17:57 Lisinopril (Zestril) 10 mg DAILY PO Last administered on 05/27/17 08:19; Admin Dose 10 MG; Start 05/26/17 at 17:57 Diagnostic Test (Pha) (Accu-Chek) 1 ea 02 XX ; Start 05/26/17 at 17:57 Miscellaneous Information 1 ea NOTE XX ; Start 05/26/17 at 17:57 Glucose (Glutose) 15 gm Q15M PRN PO DECREASED GLUCOSE; Start 05/26/17 at 17:57 Glucose (Glutose) 22.5 gm Q15M PRN PO DECREASED GLUCOSE; Start 05/26/17 at 17: 57 Dextrose (D50w Syringe) 25 ml Q15M PRN IV DECREASED GLUCOSE; Start 05/26/17 at 17:57 Dextrose (D50w Syringe) 50 ml Q15M PRN IV DECREASED GLUCOSE; Start 05/26/17 at 17:57 Glucagon (Glucagen) 1 mg Q15M PRN IM DECREASED GLUCOSE; Start 05/26/17 at 17:57 Glucose (Glutose) 15 gm Q15M PRN BUCCAL DECREASED GLUCOSE; Start 05/26/17 at 17 :57 Hydromorphone HCl (Dilaudid) 1 mg Q4H PRN IV PAIN Last administered on 19:10; Admin Dose 1 MG; Start 05/26/17 at 18:30 CHANTELLE YO MD May 27, 2017 10:49
--- NOTE | 2017-05-27 16:45 | PN ---
Date/Time of Note Date/Time of Note DATE: 05/27/17 TIME: 16:42 Assessment/Plan VTE Prophylaxis VTE Prophylaxis Intervention: ambulation, SCD's Lines/Catheters IV Catheter Type (from Nrsg): Saline Lock Assessment/Plan Problems: (1) Essential (primary) hypertension Status: Chronic Comment: Good BP control. Cont. current regimen (2) Type 2 diabetes mellitus without complications Status: Chronic Comment: Good glycemic control. Cont. metformin (3) Lumbar spinal stenosis Status: Resolved Comment: Cont. rehab (4) Leukocytosis Status: Chronic Comment: Pt. reports for last year PMD has been telling him he has leukocytosis. Has never seen heme. Recheck CBC in am. Monitor for S/S of infection. If persistently elevated and no S/S of infection, consider heme consult. Subjective 24 Hr Interval Summary Constitutional: improved, no complaints Respiratory: no complaints Cardiovascular: no complaints Gastrointestinal: no complaints Genitourinary: no complaints Musculoskeletal: back pain, bone/joint pain (B hips) Neurologic: no complaints Exam/Review of Systems Vital Signs Vitals VS - Last 72 Hours, by Label Date Time Temp Pulse Resp B/P Pulse Ox O2 Delivery O2 Flow Rate FiO2 05/27/17 07:30 98.5 20 146/81 97 05/27/17 02:11 98.3 78 18 125/68 95 05/26/17 19:50 98.3 83 18 129/72 97 05/26/17 18:45 98.5 88 18 125/65 Room Air Vital Signs Date Time Temp Pulse Resp B/P Pulse Ox O2 Delivery O2 Flow Rate FiO2 05/27/17 07:30 98.5 20 146/81 97 05/27/17 02:11 78 05/26/17 18:45 Room Air Intake and Output 05/26/17 05/26/17 05/27/17 15:00 23:00 07:00 Intake Total 650 ml Balance 650 ml Exam Constitutional: alert, oriented, well developed Psych: nl mood/affect, no complaints Respiratory: clear to auscultation, normal air movement Cardiovascular: nl pulses, regular rate and rhythm, No edema, No murmurs/extra sounds, No rub Gastrointestinal: bowel sounds, nl liver, spleen, non-tender, soft, No mass, No rebound or guarding Musculoskeletal: nl extremities to inspection Extremities: normal pulses, No clubbing, No cyanosis, No edema Neurological: 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-XII intact, nl mental status, nl speech, nl strength Additional Comments Bedside Glucose - 72 Hours Test 05/26/17 20:54 05/27/17 08:01 05/27/17 11:43 05/27/17 12:01 Bedside Glucose 127mg/dL (70-220) 121mg/dL (70-220) 160mg/dL (70-220) 146mg/dL (70-220) Results Result Diagram: 05/27/17 0616 05/27/17 0616 Results 24 hrs Laboratory Tests Test 05/26/17 20:54 05/27/17 06:16 05/27/17 08:01 05/27/17 11:43 Bedside Glucose 127 121 160 White Blood Count 21.1 #H Red Blood Count 3.70 #L Hemoglobin 11.6 L Hematocrit 34.9 #L Mean Corpuscular Volume 94.3 Mean Corpuscular Hemoglobin 31.4 Mean Corpuscular Hemoglobin Concent 33.2 Red Cell Distribution Width 14.1 Platelet Count 463 H Mean Platelet Volume 10.2 Neutrophils % 83.2 H Lymphocytes % 7.2 L Monocytes % 8.4 Eosinophils % 0.0 Basophils % 0.4 Nucleated Red Blood Cells % 0.0 Neutrophils # 17.6 H Lymphocytes # 1.5 Monocytes # 1.8 H Eosinophils # 0.0 Basophils # 0.1 Nucleated Red Blood Cells # 0.0 Sodium Level 140 Potassium Level 3.9 Chloride Level 101 Carbon Dioxide Level 26 Anion Gap 17 H Blood Urea Nitrogen 16 Creatinine 0.74 Glucose Level 89 Calcium Level 8.8 Total Bilirubin 0.4 Direct Bilirubin 0.00 Indirect Bilirubin 0.4 Aspartate Amino Transf (AST/SGOT) 21 Alanine Aminotransferase (ALT/SGPT) 18 Alkaline Phosphatase 87 Total Protein 6.3 # Albumin 3.5 # Globulin 2.80 Albumin/Globulin Ratio 1.25 Test 05/27/17 12:01 Bedside Glucose 146 Medications Medications Current Medications Acetaminophen/ Hydrocodone Bitart ([place] (5/325)) 1 tab Q4H PRN PO PAIN LEVEL 1 -5; Start 05/26/17 at 17:57 Acetaminophen/ Hydrocodone Bitart ([place] (5/325)) 2 tab Q4H PRN PO PAIN LEVEL 6 -10 Last administered on 05/27/17t 15:21; Admin Dose 2 TAB; Start 05/26/17 at 17 :57 Ondansetron HCl (Zofran Inj) 4 mg Q6H PRN IV NAUSEA AND/OR VOMITING; Start at 17:57 Acetaminophen (Tylenol Tab) 650 mg Q4H PRN PO TEMP GREATER THAN 101F OR HAILE; Start 05/26/17 at 17:57 Lisinopril (Zestril) 10 mg DAILY PO Last administered on 05/27/17 08:19; Admin Dose 10 MG; Start 05/26/17 at 17:57 Diagnostic Test (Pha) (Accu-Chek) 1 ea 02 XX ; Start 05/26/17 at 17:57 Miscellaneous Information 1 ea NOTE XX ; Start 05/26/17 at 17:57 Glucose (Glutose) 15 gm Q15M PRN PO DECREASED GLUCOSE; Start 05/26/17 at 17:57 Glucose (Glutose) 22.5 gm Q15M PRN PO DECREASED GLUCOSE; Start 05/26/17 at 17: 57 Dextrose (D50w Syringe) 25 ml Q15M PRN IV DECREASED GLUCOSE; Start 05/26/17 at 17:57 Dextrose (D50w Syringe) 50 ml Q15M PRN IV DECREASED GLUCOSE; Start 05/26/17 at 17:57 Glucagon (Glucagen) 1 mg Q15M PRN IM DECREASED GLUCOSE; Start 05/26/17 at 17:57 Glucose (Glutose) 15 gm Q15M PRN BUCCAL DECREASED GLUCOSE; Start 05/26/17 at 17 :57 Hydromorphone HCl (Dilaudid) 1 mg Q4H PRN IV PAIN Last administered on 19:10; Admin Dose 1 MG; Start 05/26/17 at 18:30 SAMANTA FRAIRE MD May 27, 2017 16:45
[2017-05-27 19:34] VITALS: BP 107/61; RESP 20
[2017-05-28] MEDS: HYDROCODONE/APAP (5/325) TAB PO PRN ×3 (01:22→17:34)
[2017-05-28] MEDS: ACCU-CHEK XX SCH (01:23)
[2017-05-28 06:55] LABS: BASOPHIL # 0.1 10^3/ul (0.0-0.1); BASOPHILS % 0.4 % (0.0-2.0); EOSINOPHILS # 0.1 10^3/ul (0.0-0.5); EOSINOPHILS % 0.4 % (0.0-7.0); HEMATOCRIT 31.6 % (42.0-52.0); HEMOGLOBIN 11.5 g/dl (14.0-18.0); LYMPHOCYTES # 1.9 10^3/ul (0.8-2.9); LYMPHOCYTES % 11.9 % (15.0-51.0); MEAN CORPUSCULAR HEMOGLOBIN 35.5 pg (29.0-33.0); MEAN CORPUSCULAR HGB CONC 36.4 g/dl (32.0-37.0); MEAN CORPUSCULAR VOLUME 97.5 fl (82.0-101.0); MONOCYTE # 1.2 10^3/ul (0.3-0.9); MONOCYTES % 7.9 % (0.0-11.0); NEUTROPHIL # 12.3 10^3/ul (1.6-7.5); NEUTROPHILS % 78.8 % (39.0-77.0); PLATELET COUNT 441 10^3/UL (140-415); RED BLOOD COUNT 3.24 10^6/ul (4.70-6.10); RED CELL DISTRIBUTION WIDTH 13.9 % (11.5-14.5); WHITE BLOOD COUNT 15.6 10^3/ul (4.8-10.8)
[2017-05-28] MEDS: INSULIN ASPART [NOVOLOG] 3 ML PEN SC SCH ×4 (07:35→20:43)
[2017-05-28] MEDS: metFORMIN 500 MG TAB PO SCH ×2 (07:48→17:50)
[2017-05-28] MEDS: HYDROmorphONE 1 MG/ML SYG IV PRN ×5 (07:48→18:31)
[2017-05-28] MEDS: LISINOPRIL 10 MG TAB PO SCH (08:31)
--- NOTE | 2017-05-28 10:44 | RADRPT ---
PROCEDURE: XR Chest. CLINICAL INDICATION: Shortness of breath. Leukocytosis TECHNIQUE: A single portable view of the chest was obtained. COMPARISON: None FINDINGS: The aorta is tortuous and atherosclerotic. The cardiomediastinal silhouette is otherwise within nor mal limits. The lungs and pleural spaces are clear. The soft tissues and osseous structures demons trate benign age related senescent changes. IMPRESSION: No acute cardiopulmonary disease. RPTAT: HPNM Physician Imani Date Time Electronically viewed and signed by Randell Mccarthy Physician on 05/28/2017 10:44 /
--- NOTE | 2017-05-28 11:17 | PN ---
Date/Time of Note Date/Time of Note DATE: 05/28/17 TIME: 11:14 Assessment/Plan VTE Prophylaxis VTE Prophylaxis Intervention: ambulation, SCD's Lines/Catheters IV Catheter Type (from Nrsg): Saline Lock Assessment/Plan Problems: (1) Lumbar spinal stenosis Status: Resolved Comment: Cont. rehab (2) Essential (primary) hypertension Status: Chronic Comment: BP controlled. Cont. current meds (3) Type 2 diabetes mellitus without complications Status: Chronic Comment: BG in goal range. Cont. metformin (4) Leukocytosis Status: Chronic Comment: Pt. reports chronic leukocytosis. No evidence of infection in cultures or CXR. Will obtain heme consult. Qualifiers: Leukocytosis type: unspecified Qualified Code: D72.829 - Leukocytosis, unspecified type Subjective 24 Hr Interval Summary Constitutional: improved, no complaints Respiratory: no complaints Cardiovascular: no complaints Gastrointestinal: no complaints Genitourinary: no complaints Musculoskeletal: back pain Neurologic: no complaints Exam/Review of Systems Vital Signs Vitals VS - Last 72 Hours, by Label Date Time Temp Pulse Resp B/P Pulse Ox O2 Delivery O2 Flow Rate FiO2 05/27/17 19:34 98.8 121 20 107/61 99 05/27/17 07:30 98.5 20 146/81 97 05/27/17 02:11 98.3 78 18 125/68 95 05/26/17 19:50 98.3 83 18 129/72 97 05/26/17 18:45 98.5 88 18 125/65 Room Air Vital Signs Date Time Temp Pulse Resp B/P Pulse Ox O2 Delivery O2 Flow Rate FiO2 05/27/17 19:34 98.8 121 20 107/61 99 05/26/17 18:45 Room Air Intake and Output 05/27/17 05/27/17 05/28/17 15:00 23:00 07:00 Intake Total 620 ml 320 ml Output Total 450 ml Balance 620 ml -130 ml Exam Constitutional: alert, oriented, well developed Psych: nl mood/affect, no complaints Respiratory: clear to auscultation, normal air movement Cardiovascular: nl pulses, regular rate and rhythm, No edema, No murmurs/extra sounds, No rub Gastrointestinal: bowel sounds, nl liver, spleen, non-tender, soft, No mass, No rebound or guarding Musculoskeletal: nl extremities to inspection Extremities: normal pulses, No clubbing, No cyanosis, No edema 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, nl mental status, nl speech, nl strength Additional Comments Bedside Glucose - 72 Hours Test 05/26/17 20:54 05/27/17 08:01 05/27/17 11:43 05/27/17 12:01 Bedside Glucose 127mg/dL (70-220) 121mg/dL (70-220) 160mg/dL (70-220) 146mg/dL (70-220) Test 05/27/17 17:11 05/27/17 17:13 05/27/17 21:20 05/28/17 07:51 Bedside Glucose 152mg/dL (70-220) 152mg/dL (70-220) 160mg/dL (70-220) 90mg/dL (70-220) Results Result Diagram: 05/28/17 0636 05/27/17 0616 Results 24 hrs Laboratory Tests Test 05/27/17 11:43 05/27/17 12:01 05/27/17 17:11 05/27/17 17:13 Bedside Glucose 160 146 152 152 Test 05/27/17 21:20 05/28/17 06:36 05/28/17 07:51 Bedside Glucose 160 90 White Blood Count 15.6 #H Red Blood Count 3.24 L Hemoglobin 11.5 L Hematocrit 31.6 L Mean Corpuscular Volume 97.5 Mean Corpuscular Hemoglobin 35.5 H Mean Corpuscular Hemoglobin Concent 36.4 Red Cell Distribution Width 13.9 Platelet Count 441 H Mean Platelet Volume 10.0 Neutrophils % 78.8 H Lymphocytes % 11.9 L Monocytes % 7.9 Eosinophils % 0.4 Basophils % 0.4 Nucleated Red Blood Cells % 0.0 Neutrophils # 12.3 H Lymphocytes # 1.9 Monocytes # 1.2 H Eosinophils # 0.1 Basophils # 0.1 Nucleated Red Blood Cells # 0.0 Medications Medications Current Medications Acetaminophen/ Hydrocodone Bitart ([place] (5/325)) 1 tab Q4H PRN PO PAIN LEVEL 1 -5; Start 05/26/17 at 17:57 Acetaminophen/ Hydrocodone Bitart ([place] (5/325)) 2 tab Q4H PRN PO PAIN LEVEL 6 -10 Last administered on 05/28/17t 01:22; Admin Dose 2 TAB; Start 05/26/17 at 17 :57 Ondansetron HCl (Zofran Inj) 4 mg Q6H PRN IV NAUSEA AND/OR VOMITING; Start at 17:57 Acetaminophen (Tylenol Tab) 650 mg Q4H PRN PO TEMP GREATER THAN 101F OR HAILE; Start 05/26/17 at 17:57 Lisinopril (Zestril) 10 mg DAILY PO Last administered on 05/27/17 08:19; Admin Dose 10 MG; Start 05/26/17 at 17:57 Diagnostic Test (Pha) (Accu-Chek) 1 ea 02 XX ; Start 05/26/17 at 17:57 Miscellaneous Information 1 ea NOTE XX ; Start 05/26/17 at 17:57 Glucose (Glutose) 15 gm Q15M PRN PO DECREASED GLUCOSE; Start 05/26/17 at 17:57 Glucose (Glutose) 22.5 gm Q15M PRN PO DECREASED GLUCOSE; Start 05/26/17 at 17: 57 Dextrose (D50w Syringe) 25 ml Q15M PRN IV DECREASED GLUCOSE; Start 05/26/17 at 17:57 Dextrose (D50w Syringe) 50 ml Q15M PRN IV DECREASED GLUCOSE; Start 05/26/17 at 17:57 Glucagon (Glucagen) 1 mg Q15M PRN IM DECREASED GLUCOSE; Start 05/26/17 at 17:57 Glucose (Glutose) 15 gm Q15M PRN BUCCAL DECREASED GLUCOSE; Start 05/26/17 at 17 :57 Hydromorphone HCl (Dilaudid) 1 mg Q4H PRN IV PAIN Last administered on 08:54; Admin Dose 1 MG; Start 05/26/17 at 18:30 SAMANTA FRAIRE MD May 28, 2017 11:17
[2017-05-28 19:36] VITALS: BP 148/75; RESP 19
[2017-05-29] MEDS: HYDROmorphONE 1 MG/ML SYG IV PRN ×4 (00:03→12:18)
[2017-05-29 01:52] VITALS: BP 119/71; RESP 20
[2017-05-29] MEDS: ACCU-CHEK XX SCH (02:00)
[2017-05-29 07:12] LABS: BASOPHIL # 0.1 10^3/ul (0.0-0.1); BASOPHILS % 0.5 % (0.0-2.0); EOSINOPHILS # 0.2 10^3/ul (0.0-0.5); EOSINOPHILS % 1.3 % (0.0-7.0); HEMATOCRIT 29.2 % (42.0-52.0); HEMOGLOBIN 10.7 g/dl (14.0-18.0); LYMPHOCYTES # 1.5 10^3/ul (0.8-2.9); LYMPHOCYTES % 12.5 % (15.0-51.0); MEAN CORPUSCULAR HEMOGLOBIN 35.4 pg (29.0-33.0); MEAN CORPUSCULAR HGB CONC 36.6 g/dl (32.0-37.0); MEAN CORPUSCULAR VOLUME 96.7 fl (82.0-101.0); MEAN PLATELET VOLUME 10.2 fl (7.4-10.4); MONOCYTE # 0.8 10^3/ul (0.3-0.9); MONOCYTES % 6.4 % (0.0-11.0); NEUTROPHIL # 9.3 10^3/ul (1.6-7.5); NEUTROPHILS % 78.6 % (39.0-77.0); PLATELET COUNT 473 10^3/UL (140-415); RED BLOOD COUNT 3.02 10^6/ul (4.70-6.10); RED CELL DISTRIBUTION WIDTH 14.1 % (11.5-14.5); WHITE BLOOD COUNT 11.8 10^3/ul (4.8-10.8)
[2017-05-29 07:30] VITALS: BP 135/78; RESP 20
[2017-05-29] MEDS: INSULIN ASPART [NOVOLOG] 3 ML PEN SC SCH ×4 (07:35→21:00)
[2017-05-29] MEDS: metFORMIN 500 MG TAB PO SCH ×2 (08:18→17:57)
[2017-05-29] MEDS: LISINOPRIL 10 MG TAB PO SCH (08:20)
[2017-05-29] MEDS: HYDROCODONE/APAP (5/325) TAB PO PRN ×2 (11:13→20:18)
--- NOTE | 2017-05-29 13:02 | CONS ---
Date/Time of Note Date/Time of Note DATE: 05/29/17 TIME: 13:00 Consult Date/Type/Reason Admit Date/Time May 26, 2017 at 17:11 Initial Consult Date Objective Vital Signs Date Time Temp Pulse Resp B/P Pulse Ox O2 Delivery O2 Flow Rate FiO2 05/29/17 07:30 98.8 100 20 135/78 99 05/26/17 18:45 Room Air Intake and Output 05/28/17 05/28/17 05/29/17 14:59 22:59 06:59 Intake Total 500 ml 120 ml Output Total 600 ml 600 ml Balance -100 ml -480 ml INTERDISCIPLINARY TEAM CONFERENCE BOWEL- Cont BLADDER-Cont SKIN- intact OT- DRESSING-min BATHING-min TOILETING-min PT- BED MOBILITY-min TRANSFERS-min AMBULATION-min 35 feet A/P- Interdisciplinary team conference held today. Please see interdisciplinary sheet. Working toward d.c. on 06/06 with post discharge follow up of physical therapy, occupational therapy. Results/Medications Result Diagram: 05/29/17 0619 05/27/17 0616 Results 24 hrs Laboratory Tests Test 05/28/17 17:26 05/28/17 20:40 05/29/17 06:19 05/29/17 07:58 Bedside Glucose 121 115 109 White Blood Count 11.8 #H Red Blood Count 3.02 L Hemoglobin 10.7 L Hematocrit 29.2 L Mean Corpuscular Volume 96.7 Mean Corpuscular Hemoglobin 35.4 H Mean Corpuscular Hemoglobin Concent 36.6 Red Cell Distribution Width 14.1 Platelet Count 473 H Mean Platelet Volume 10.2 Neutrophils % 78.6 H Lymphocytes % 12.5 L Monocytes % 6.4 Eosinophils % 1.3 Basophils % 0.5 Nucleated Red Blood Cells % 0.0 Neutrophils # 9.3 H Lymphocytes # 1.5 Monocytes # 0.8 Eosinophils # 0.2 Basophils # 0.1 Nucleated Red Blood Cells # 0.0 Test 05/29/17 11:58 Bedside Glucose 140 Medications Current Medications Acetaminophen/ Hydrocodone Bitart ([place] (5/325)) 1 tab Q4H PRN PO PAIN LEVEL 1 -5 Last administered on 05/28/17t 12:33; Admin Dose 1 TAB; Start 05/26/17 at 17: 57 Acetaminophen/ Hydrocodone Bitart ([place] (5/325)) 2 tab Q4H PRN PO PAIN LEVEL 6 -10 Last administered on 05/28/17 01:22; Admin Dose 2 TAB; Start 05/26/17 at 17 :57 Ondansetron HCl (Zofran Inj) 4 mg Q6H PRN IV NAUSEA AND/OR VOMITING; Start at 17:57 Acetaminophen (Tylenol Tab) 650 mg Q4H PRN PO TEMP GREATER THAN 101F OR HAILE; Start 05/26/17 at 17:57 Lisinopril (Zestril) 10 mg DAILY PO Last administered on 05/29/17 08:20; Admin Dose 10 MG; Start 05/26/17 at 17:57 Diagnostic Test (Pha) (Accu-Chek) 1 ea 02 XX ; Start 05/26/17 at 17:57 Miscellaneous Information 1 ea NOTE XX ; Start 05/26/17 at 17:57 Glucose (Glutose) 15 gm Q15M PRN PO DECREASED GLUCOSE; Start 05/26/17 at 17:57 Glucose (Glutose) 22.5 gm Q15M PRN PO DECREASED GLUCOSE; Start 05/26/17 at 17: 57 Dextrose (D50w Syringe) 25 ml Q15M PRN IV DECREASED GLUCOSE; Start 05/26/17 at 17:57 Dextrose (D50w Syringe) 50 ml Q15M PRN IV DECREASED GLUCOSE; Start 05/26/17 at 17:57 Glucagon (Glucagen) 1 mg Q15M PRN IM DECREASED GLUCOSE; Start 05/26/17 at 17:57 Glucose (Glutose) 15 gm Q15M PRN BUCCAL DECREASED GLUCOSE; Start 05/26/17 at 17 :57 Hydromorphone HCl (Dilaudid) 1 mg Q4H PRN IV PAIN Last administered on 12:18; Admin Dose 1 MG; Start 05/26/17 at 18:30 CHANTELLE YO MD May 29, 2017 13:02
--- NOTE | 2017-05-29 13:16 | PN ---
Date/Time of Note Date/Time of Note DATE: 05/29/17 TIME: 13:08 Assessment/Plan VTE Prophylaxis VTE Prophylaxis Intervention: ambulation, SCD's Lines/Catheters IV Catheter Type (from Nrsg): Saline Lock Assessment/Plan Problems: (1) Leukocytosis Status: Chronic Comment: WBC decreasing daily. Now near normal. No need for heme consult at this time. Will monitor every 2-3 days and may consult heme if is too high in future. Qualifiers: Leukocytosis type: unspecified Qualified Code: D72.829 - Leukocytosis, unspecified type (2) Lumbar spinal stenosis Status: Resolved Comment: Cont. rehab. (3) Essential (primary) hypertension Status: Chronic Comment: BP controlled. (4) Type 2 diabetes mellitus without complications Status: Chronic Comment: Excellent glycemic control. Cont. current regimen. Subjective 24 Hr Interval Summary Constitutional: improved, no complaints Respiratory: no complaints Cardiovascular: no complaints Gastrointestinal: no complaints Genitourinary: no complaints Musculoskeletal: back pain (mild, 3/10), No bone/joint pain (not present running down legs as before) Neurologic: no complaints Exam/Review of Systems Vital Signs Vitals VS - Last 72 Hours, by Label Date Time Temp Pulse Resp B/P Pulse Ox O2 Delivery O2 Flow Rate FiO2 05/29/17 07:30 98.8 100 20 135/78 99 05/29/17 01:52 98.8 95 20 119/71 97 05/28/17 19:36 98.6 103 19 148/75 98 05/27/17 19:34 98.8 121 20 107/61 99 05/27/17 07:30 98.5 20 146/81 97 05/27/17 02:11 98.3 78 18 125/68 95 05/26/17 19:50 98.3 83 18 129/72 97 05/26/17 18:45 98.5 88 18 125/65 Room Air Vital Signs Date Time Temp Pulse Resp B/P Pulse Ox O2 Delivery O2 Flow Rate FiO2 05/29/17 07:30 98.8 100 20 135/78 99 05/26/17 18:45 Room Air Intake and Output 05/28/17 05/28/17 05/29/17 15:00 23:00 07:00 Intake Total 500 ml 120 ml Output Total 600 ml 600 ml Balance -100 ml -480 ml Exam Constitutional: alert, oriented, well developed Psych: nl mood/affect, no complaints Respiratory: clear to auscultation, normal air movement Cardiovascular: nl pulses, regular rate and rhythm, No edema, No murmurs/extra sounds, No rub Gastrointestinal: bowel sounds, nl liver, spleen, non-tender, soft, No mass, No rebound or guarding Musculoskeletal: nl extremities to inspection Extremities: normal pulses, No clubbing, No cyanosis, No edema 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, nl mental status, nl speech, nl strength Additional Comments Bedside Glucose - 72 Hours Test 05/26/17 20:54 05/27/17 08:01 05/27/17 11:43 05/27/17 12:01 Bedside Glucose 127mg/dL (70-220) 121mg/dL (70-220) 160mg/dL (70-220) 146mg/dL (70-220) Test 05/27/17 17:11 05/27/17 17:13 05/27/17 21:20 05/28/17 07:51 Bedside Glucose 152mg/dL (70-220) 152mg/dL (70-220) 160mg/dL (70-220) 90mg/dL (70-220) Test 05/28/17 12:07 05/28/17 17:26 05/28/17 20:40 05/29/17 07:58 Bedside Glucose 115mg/dL (70-220) 121mg/dL (70-220) 115mg/dL (70-220) 109mg/dL (70-220) Test 05/29/17 11:58 Bedside Glucose 140mg/dL (70-220) Results Result Diagram: 05/29/17 0619 05/27/17 0616 Results 24 hrs Laboratory Tests Test 05/28/17 17:26 05/28/17 20:40 05/29/17 06:19 05/29/17 07:58 Bedside Glucose 121 115 109 White Blood Count 11.8 #H Red Blood Count 3.02 L Hemoglobin 10.7 L Hematocrit 29.2 L Mean Corpuscular Volume 96.7 Mean Corpuscular Hemoglobin 35.4 H Mean Corpuscular Hemoglobin Concent 36.6 Red Cell Distribution Width 14.1 Platelet Count 473 H Mean Platelet Volume 10.2 Neutrophils % 78.6 H Lymphocytes % 12.5 L Monocytes % 6.4 Eosinophils % 1.3 Basophils % 0.5 Nucleated Red Blood Cells % 0.0 Neutrophils # 9.3 H Lymphocytes # 1.5 Monocytes # 0.8 Eosinophils # 0.2 Basophils # 0.1 Nucleated Red Blood Cells # 0.0 Test 05/29/17 11:58 Bedside Glucose 140 Medications Medications Current Medications Acetaminophen/ Hydrocodone Bitart ([place] (5/325)) 1 tab Q4H PRN PO PAIN LEVEL 1 -5 Last administered on 05/28/17 12:33; Admin Dose 1 TAB; Start 05/26/17 at 17: 57 Acetaminophen/ Hydrocodone Bitart ([place] (5/325)) 2 tab Q4H PRN PO PAIN LEVEL 6 -10 Last administered on 05/28/17 01:22; Admin Dose 2 TAB; Start 05/26/17 at 17 :57 Ondansetron HCl (Zofran Inj) 4 mg Q6H PRN IV NAUSEA AND/OR VOMITING; Start at 17:57 Acetaminophen (Tylenol Tab) 650 mg Q4H PRN PO TEMP GREATER THAN 101F OR HAILE; Start 05/26/17 at 17:57 Lisinopril (Zestril) 10 mg DAILY PO Last administered on 05/29/17 08:20; Admin Dose 10 MG; Start 05/26/17 at 17:57 Diagnostic Test (Pha) (Accu-Chek) 1 ea 02 XX ; Start 05/26/17 at 17:57 Miscellaneous Information 1 ea NOTE XX ; Start 05/26/17 at 17:57 Glucose (Glutose) 15 gm Q15M PRN PO DECREASED GLUCOSE; Start 05/26/17 at 17:57 Glucose (Glutose) 22.5 gm Q15M PRN PO DECREASED GLUCOSE; Start 05/26/17 at 17: 57 Dextrose (D50w Syringe) 25 ml Q15M PRN IV DECREASED GLUCOSE; Start 05/26/17 at 17:57 Dextrose (D50w Syringe) 50 ml Q15M PRN IV DECREASED GLUCOSE; Start 05/26/17 at 17:57 Glucagon (Glucagen) 1 mg Q15M PRN IM DECREASED GLUCOSE; Start 05/26/17 at 17:57 Glucose (Glutose) 15 gm Q15M PRN BUCCAL DECREASED GLUCOSE; Start 05/26/17 at 17 :57 Hydromorphone HCl (Dilaudid) 1 mg Q4H PRN IV PAIN Last administered on t 12:18; Admin Dose 1 MG; Start 05/26/17 at 18:30 SAMANTA FRAIRE MD May 29, 2017 13:15
[2017-05-29 20:00] VITALS: BP_SYST 115; BP_SYST 132; BP_DIAS 59; BP_DIAS 79; RESP 18
[2017-05-29] MEDS: SENNA TAB PO SCH (20:27)
[2017-05-29] MEDS: DOCUSATE SODIUM 100 MG CAP PO SCH (20:27)
[2017-05-29] MEDS ORDERED: MAGNESIUM HYDROXIDE 30ML CUP PO PRN (20:30)
[2017-05-29] MEDS ORDERED: BISACODYL 10 MG SUPP PR PRN (20:30)
[2017-05-29] MEDS: LORAZEPAM 1 MG TAB PO PRN (23:18)
[2017-05-30 02:00] VITALS: BP_SYST 115; BP_SYST 132; BP_DIAS 59; BP_DIAS 79; RESP 18
[2017-05-30] MEDS: ACCU-CHEK XX SCH (02:00)
[2017-05-30] MEDS: HYDROCODONE/APAP (5/325) TAB PO PRN ×3 (05:22→22:14)
[2017-05-30] MEDS: INSULIN ASPART [NOVOLOG] 3 ML PEN SC SCH (07:35)
[2017-05-30 07:40] VITALS: BP 118/68; RESP 18
[2017-05-30] MEDS: LISINOPRIL 10 MG TAB PO SCH ×2 (09:00→09:11)
[2017-05-30] MEDS: metFORMIN 500 MG TAB PO SCH ×2 (09:10→17:40)
[2017-05-30] MEDS: DOCUSATE SODIUM 100 MG CAP PO SCH ×2 (09:10→20:17)
[2017-05-30] MEDS: HYDROmorphONE 1 MG/ML SYG IV PRN (11:02)
--- NOTE | 2017-05-30 12:54 | CONS ---
Date/Time of Note Date/Time of Note DATE: 05/30/17 TIME: 12:53 Consult Date/Type/Reason Admit Date/Time May 26, 2017 at 17:11 Objective Lungs clear anterior Min mod assist ambulation Vital Signs Date Time Temp Pulse Resp B/P Pulse Ox O2 Delivery O2 Flow Rate FiO2 05/30/17 07:40 97.8 99 18 118/68 97 05/26/17 18:45 Room Air Intake and Output 05/29/17 05/29/17 05/30/17 15:00 23:00 07:00 Intake Total 320 ml 450 ml Output Total 180 ml Balance 140 ml 450 ml Results/Medications Result Diagram: 05/29/17 0619 05/27/17 0616 Results 24 hrs Laboratory Tests Test 05/29/17 17:26 05/29/17 20:22 05/30/17 08:18 Bedside Glucose 123 138 144 Medications Current Medications Acetaminophen/ Hydrocodone Bitart ([place] (5/325)) 1 tab Q4H PRN PO PAIN LEVEL 1 -5 Last administered on 05/28/17 12:33; Admin Dose 1 TAB; Start 05/26/17 at 17: 57 Acetaminophen/ Hydrocodone Bitart ([place] (5/325)) 2 tab Q4H PRN PO PAIN LEVEL 6 -10 Last administered on 05/30/17 05:22; Admin Dose 2 TAB; Start 05/26/17 at 17: 57 Ondansetron HCl (Zofran Inj) 4 mg Q6H PRN IV NAUSEA AND/OR VOMITING; Start at 17:57 Acetaminophen (Tylenol Tab) 650 mg Q4H PRN PO TEMP GREATER THAN 101F/HAILE/PAIN; Start 05/26/17 at 17:57 Lisinopril (Zestril) 10 mg DAILY PO Last administered on 05/29/17 08:20; Admin Dose 10 MG; Start 05/26/17 at 17:57 Glucose (Glutose) 15 gm Q15M PRN PO DECREASED GLUCOSE; Start 05/26/17 at 17:57 Glucose (Glutose) 22.5 gm Q15M PRN PO DECREASED GLUCOSE; Start 05/26/17 at 17: 57 Dextrose (D50w Syringe) 25 ml Q15M PRN IV DECREASED GLUCOSE; Start 05/26/17 at 17:57 Dextrose (D50w Syringe) 50 ml Q15M PRN IV DECREASED GLUCOSE; Start 05/26/17 at 17:57 Glucagon (Glucagen) 1 mg Q15M PRN IM DECREASED GLUCOSE; Start 05/26/17 at 17:57 Glucose (Glutose) 15 gm Q15M PRN BUCCAL DECREASED GLUCOSE; Start 05/26/17 at 17 :57 Hydromorphone HCl (Dilaudid) 1 mg Q4H PRN IV PAIN Last administered on 11:02; Admin Dose 1 MG; Start 05/26/17 at 18:30 Docusate Sodium (Colace) 100 mg BID PO Last administered on 05/30/17 09:10; Admin Dose 100 MG; Start 05/29/17 at 21:00 Senna (Senokot) 1 tab HS PO Last administered on 05/29/17 20:27; Admin Dose 1 TAB; Start 05/29/17 at 21:00 Bisacodyl (Dulcolax Supp) 10 mg DAILY PRN [place] CONSTIPATION; Start 05/29/17 at 20 :30 Magnesium Hydroxide (Milk Of Mag) 30 ml BID PRN PO CONSTIPATION; Start at 20:30 Lactulose (Enulose) 20 gm DAILY PRN PO CONSTIPATION; Start 05/29/17 at 20:30 Lorazepam (Ativan) 1 mg HS PRN PO SLEEP Last administered on 05/29/17 23:18; Admin Dose 1 MG; Start 05/29/17 at 22:30 Assessment/Plan Additional Assessment/Plan Rehabilitation-Lumbar spinal stenosis with spondylolisthesis status post Lumbar Laminectomy Continue interdisciplinary treatment plan Acute pain Syndrome-improving Anemia Diabetes Mellitus type 2 Hypertension Alcoholic Liver Disease CHANTELLE YO MD May 30, 2017 12:54
[2017-05-30 14:22] VITALS: BP 109/80; RESP 20
[2017-05-30 20:00] VITALS: BP 132/72; RESP 18
[2017-05-30] MEDS: SENNA TAB PO SCH (20:17)
[2017-05-30] MEDS: PRAMIPEXOLE 0.125 MG TAB PO SCH (20:20)
--- NOTE | 2017-05-30 22:12 | PN ---
Date/Time of Note Date/Time of Note DATE: 05/30/17 TIME: 22:08 Assessment/Plan VTE Prophylaxis VTE Prophylaxis Intervention: ambulation, SCD's Lines/Catheters IV Catheter Type (from Nrs): Saline Lock Assessment/Plan Problems: (1) Lumbar spinal stenosis Status: Resolved Comment: Cont. rehab (2) Essential (primary) hypertension Status: Chronic Comment: Controlled. Cont. current regimen. (3) Type 2 diabetes mellitus without complications Status: Chronic Comment: Well controlled. Check FS only bid. (4) Leukocytosis Status: Chronic Comment: Recheck CBC tomorrow. Qualifiers: Leukocytosis type: unspecified Qualified Code: D72.829 - Leukocytosis, unspecified type (5) Restless leg syndrome Status: Chronic Comment: Start mirapex 0.125 mg po qpm tonight. Reeval RLS symptoms daily. Subjective 24 Hr Interval Summary Constitutional: improved (ambulating well, did stairs twice), no complaints Respiratory: no complaints Cardiovascular: no complaints Gastrointestinal: no complaints Genitourinary: no complaints Musculoskeletal: back pain Neurologic: other (restless leg, LLE, keeps him up at night) Exam/Review of Systems Vital Signs Vitals VS - Last 72 Hours, by Label Date Time Temp Pulse Resp B/P Pulse Ox O2 Delivery O2 Flow Rate FiO2 05/30/17 20:00 98.1 91 18 132/72 98 05/30/17 14:22 98.4 121 20 109/80 99 05/30/17 07:40 97.8 99 18 118/68 97 05/30/17 02:00 98.2 84 18 115/59 97 05/29/17 20:00 98.6 113 18 132/79 99 05/29/17 07:30 98.8 100 20 135/78 99 05/29/17 01:52 98.8 95 20 119/71 97 05/28/17 19:36 98.6 103 19 148/75 98 Vital Signs Date Time Temp Pulse Resp B/P Pulse Ox O2 Delivery O2 Flow Rate FiO2 05/30/17 20:00 98.1 91 18 132/72 98 05/26/17 18:45 Room Air Intake and Output 05/29/17 05/29/17 05/30/17 15:00 23:00 07:00 Intake Total 320 ml 450 ml Output Total 180 ml Balance 140 ml 450 ml Exam Constitutional: alert, oriented, well developed Psych: nl mood/affect, no complaints Respiratory: clear to auscultation, normal air movement Cardiovascular: nl pulses, regular rate and rhythm, No edema, No murmurs/extra sounds, No rub Gastrointestinal: bowel sounds, nl liver, spleen, non-tender, soft, No mass, No rebound or guarding Musculoskeletal: nl extremities to inspection Extremities: normal pulses, No clubbing, No cyanosis, No edema 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, nl mental status, nl speech, nl strength Additional Comments Bedside Glucose - 72 Hours Test 05/28/17 07:51 05/28/17 12:07 05/28/17 17:26 05/28/17 20:40 Bedside Glucose 90mg/dL (70-220) 115mg/dL (70-220) 121mg/dL (70-220) 115mg/dL (70-220) Test 05/29/17 07:58 05/29/17 11:58 05/29/17 17:26 05/29/17 20:22 Bedside Glucose 109mg/dL (70-220) 140mg/dL (70-220) 123mg/dL (70-220) 138mg/dL (70-220) Test 05/30/17 08:18 Bedside Glucose 144mg/dL (70-220) Results Result Diagram: 05/29/17 0619 05/27/17 0616 Results 24 hrs Laboratory Tests Test 05/30/17 08:18 Bedside Glucose 144 Medications Medications Current Medications Acetaminophen/ Hydrocodone Bitart ([place] (5/325)) 1 tab Q4H PRN PO PAIN LEVEL 1 -5 Last administered on 05/28/17 12:33; Admin Dose 1 TAB; Start 05/26/17 at 17: 57 Acetaminophen/ Hydrocodone Bitart ([place] (5/325)) 2 tab Q4H PRN PO PAIN LEVEL 6 -10 Last administered on 05/30/17 14:08; Admin Dose 2 TAB; Start 05/26/17 at 17: 57 Ondansetron HCl (Zofran Inj) 4 mg Q6H PRN IV NAUSEA AND/OR VOMITING; Start at 17:57 Acetaminophen (Tylenol Tab) 650 mg Q4H PRN PO TEMP GREATER THAN 101F/HAILE/PAIN; Start 05/26/17 at 17:57 Lisinopril (Zestril) 10 mg DAILY PO Last administered on 05/29/17 08:20; Admin Dose 10 MG; Start 05/26/17 at 17:57 Glucose (Glutose) 15 gm Q15M PRN PO DECREASED GLUCOSE; Start 05/26/17 at 17:57 Glucose (Glutose) 22.5 gm Q15M PRN PO DECREASED GLUCOSE; Start 05/26/17 at 17: 57 Dextrose (D50w Syringe) 25 ml Q15M PRN IV DECREASED GLUCOSE; Start 05/26/17 at 17:57 Dextrose (D50w Syringe) 50 ml Q15M PRN IV DECREASED GLUCOSE; Start 05/26/17 at 17:57 Glucagon (Glucagen) 1 mg Q15M PRN IM DECREASED GLUCOSE; Start 05/26/17 at 17:57 Glucose (Glutose) 15 gm Q15M PRN BUCCAL DECREASED GLUCOSE; Start 05/26/17 at 17 :57 Hydromorphone HCl (Dilaudid) 1 mg Q4H PRN IV PAIN Last administered on 11:02; Admin Dose 1 MG; Start 05/26/17 at 18:30 Docusate Sodium (Colace) 100 mg BID PO Last administered on 05/30/17 20:17; Admin Dose 100 MG; Start 05/29/17 at 21:00 Senna (Senokot) 1 tab HS PO Last administered on 05/30/17 20:17; Admin Dose 1 TAB; Start 05/29/17 at 21:00 Bisacodyl (Dulcolax Supp) 10 mg DAILY PRN [place] CONSTIPATION; Start 05/29/17 at 20 :30 Magnesium Hydroxide (Milk Of Mag) 30 ml BID PRN PO CONSTIPATION; Start at 20:30 Lactulose (Enulose) 20 gm DAILY PRN PO CONSTIPATION; Start 05/29/17 at 20:30 Lorazepam (Ativan) 1 mg HS PRN PO SLEEP Last administered on 05/29/17 23:18; Admin Dose 1 MG; Start 05/29/17 at 22:30 SAMANTA FRAIRE MD May 30, 2017 22:12
[2017-05-30] MEDS: LORAZEPAM 1 MG TAB PO PRN (22:13)
[2017-05-31 02:00] VITALS: BP 111/66; RESP 18
[2017-05-31] MEDS: HYDROCODONE/APAP (5/325) TAB PO PRN ×2 (06:51→21:02)
[2017-05-31 06:59] LABS: BASOPHIL # 0.1 10^3/ul (0.0-0.1); BASOPHILS % 0.7 % (0.0-2.0); EOSINOPHILS # 0.6 10^3/ul (0.0-0.5); EOSINOPHILS % 6.9 % (0.0-7.0); HEMATOCRIT 31.2 % (42.0-52.0); HEMOGLOBIN 10.8 g/dl (14.0-18.0); LYMPHOCYTES # 2.1 10^3/ul (0.8-2.9); LYMPHOCYTES % 25.5 % (15.0-51.0); MEAN CORPUSCULAR HEMOGLOBIN 33.4 pg (29.0-33.0); MEAN CORPUSCULAR HGB CONC 34.6 g/dl (32.0-37.0); MEAN CORPUSCULAR VOLUME 96.6 fl (82.0-101.0); MEAN PLATELET VOLUME 9.7 fl (7.4-10.4); MONOCYTE # 0.8 10^3/ul (0.3-0.9); MONOCYTES % 9.4 % (0.0-11.0); NEUTROPHIL # 4.6 10^3/ul (1.6-7.5); NEUTROPHILS % 56.9 % (39.0-77.0); PLATELET COUNT 528 10^3/UL (140-415); RED BLOOD COUNT 3.23 10^6/ul (4.70-6.10); RED CELL DISTRIBUTION WIDTH 13.6 % (11.5-14.5); WHITE BLOOD COUNT 8.2 10^3/ul (4.8-10.8)
[2017-05-31] MEDS: ACCU-CHEK XX SCH ×2 (07:05→17:05)
[2017-05-31 07:50] VITALS: BP 141/76; RESP 18
[2017-05-31] MEDS: metFORMIN 500 MG TAB PO SCH ×2 (08:38→17:21)
[2017-05-31] MEDS: LISINOPRIL 10 MG TAB PO SCH (08:38)
[2017-05-31] MEDS: DOCUSATE SODIUM 100 MG CAP PO SCH ×2 (08:38→21:01)
--- NOTE | 2017-05-31 11:12 | CONS ---
Date/Time of Note Date/Time of Note DATE: 05/31/17 TIME: 11:10 Consult Date/Type/Reason Admit Date/Time May 26, 2017 at 17:11 Subjective Feeling better today Objective Lungs clear abdomen soft Min mod assist ambulation Vital Signs Date Time Temp Pulse Resp B/P Pulse Ox O2 Delivery O2 Flow Rate FiO2 05/31/17 07:50 98.2 94 18 141/76 96 Intake and Output 05/30/17 05/30/17 05/31/17 15:00 23:00 07:00 Intake Total 400 ml Balance 400 ml Results/Medications Result Diagram: 05/31/17 0623 05/27/17 0616 Results 24 hrs Laboratory Tests Test 05/31/17 06:23 05/31/17 07:56 White Blood Count 8.2 # Red Blood Count 3.23 L Hemoglobin 10.8 L Hematocrit 31.2 L Mean Corpuscular Volume 96.6 Mean Corpuscular Hemoglobin 33.4 H Mean Corpuscular Hemoglobin Concent 34.6 Red Cell Distribution Width 13.6 Platelet Count 528 H Mean Platelet Volume 9.7 Neutrophils % 56.9 Lymphocytes % 25.5 Monocytes % 9.4 Eosinophils % 6.9 Basophils % 0.7 Nucleated Red Blood Cells % 0.0 Neutrophils # 4.6 Lymphocytes # 2.1 Monocytes # 0.8 Eosinophils # 0.6 H Basophils # 0.1 Nucleated Red Blood Cells # 0.0 Bedside Glucose 147 Medications Current Medications Acetaminophen/ Hydrocodone Bitart ([place] (5/325)) 1 tab Q4H PRN PO PAIN LEVEL 1 -5 Last administered on 05/28/17 12:33; Admin Dose 1 TAB; Start 05/26/17 at 17: 57 Acetaminophen/ Hydrocodone Bitart ([place] (5/325)) 2 tab Q4H PRN PO PAIN LEVEL 6 -10 Last administered on 05/31/17 06:51; Admin Dose 2 TAB; Start 05/26/17 at 17: 57 Ondansetron HCl (Zofran Inj) 4 mg Q6H PRN IV NAUSEA AND/OR VOMITING; Start at 17:57 Acetaminophen (Tylenol Tab) 650 mg Q4H PRN PO TEMP GREATER THAN 101F/HAILE/PAIN; Start 05/26/17 at 17:57 Lisinopril (Zestril) 10 mg DAILY PO Last administered on 05/31/17 08:38; Admin Dose 10 MG; Start 05/26/17 at 17:57 Glucose (Glutose) 15 gm Q15M PRN PO DECREASED GLUCOSE; Start 05/26/17 at 17:57 Glucose (Glutose) 22.5 gm Q15M PRN PO DECREASED GLUCOSE; Start 05/26/17 at 17: 57 Dextrose (D50w Syringe) 25 ml Q15M PRN IV DECREASED GLUCOSE; Start 05/26/17 at 17:57 Dextrose (D50w Syringe) 50 ml Q15M PRN IV DECREASED GLUCOSE; Start 05/26/17 at 17:57 Glucagon (Glucagen) 1 mg Q15M PRN IM DECREASED GLUCOSE; Start 05/26/17 at 17:57 Glucose (Glutose) 15 gm Q15M PRN BUCCAL DECREASED GLUCOSE; Start 05/26/17 at 17 :57 Hydromorphone HCl (Dilaudid) 1 mg Q4H PRN IV PAIN Last administered on 11:02; Admin Dose 1 MG; Start 05/26/17 at 18:30 Docusate Sodium (Colace) 100 mg BID PO Last administered on 05/31/17 08:38; Admin Dose 100 MG; Start 05/29/17 at 21:00 Senna (Senokot) 1 tab HS PO Last administered on 05/30/17 20:17; Admin Dose 1 TAB; Start 05/29/17 at 21:00 Bisacodyl (Dulcolax Supp) [address] CONSTIPATION; Start 05/29/17 at 20 :30 Magnesium Hydroxide (Milk Of Mag) 30 ml BID PRN PO CONSTIPATION; Start at 20:30 Lactulose (Enulose) 20 gm DAILY PRN PO CONSTIPATION; Start 05/29/17 at 20:30 Lorazepam (Ativan) 1 mg HS PRN PO SLEEP Last administered on 05/30/17 22:13; Admin Dose 1 MG; Start 05/29/17 at 22:30 Assessment/Plan Additional Assessment/Plan Rehabilitation-Lumbar spinal stenosis with spondylolisthesis status post Lumbar Laminectomy Overall patient continues to improve. Continue interdisciplinary treatment plan Acute pain Syndrome-improving Anemia Diabetes Mellitus type 2 Hypertension Alcoholic Liver Disease CHANTELLE YO MD May 31, 2017 11:12
[2017-05-31] MEDS: HYDROmorphONE 1 MG/ML SYG IV PRN (11:27)
[2017-05-31] MEDS: PRAMIPEXOLE 0.125 MG TAB PO SCH (17:21)
--- NOTE | 2017-05-31 19:01 | PN ---
Date/Time of Note Date/Time of Note DATE: 05/31/17 TIME: 18:58 Assessment/Plan VTE Prophylaxis VTE Prophylaxis Intervention: ambulation, SCD's Lines/Catheters IV Catheter Type (from Nrs): Saline Lock Assessment/Plan Problems: (1) Essential (primary) hypertension Status: Chronic Comment: BP controlled. Cont. current therapy. (2) Type 2 diabetes mellitus without complications Status: Chronic Comment: BG controlled. Cont. current therapy (3) Leukocytosis Status: Resolved Qualifiers: Leukocytosis type: unspecified Qualified Code: D72.829 - Leukocytosis, unspecified type (4) Lumbar spinal stenosis Status: Resolved Comment: Cont. rehab Subjective 24 Hr Interval Summary Constitutional: improved, no complaints Respiratory: no complaints Cardiovascular: no complaints Gastrointestinal: no complaints Genitourinary: no complaints Musculoskeletal: back pain (feels he needs to get up more and do more therapy) Neurologic: no complaints Exam/Review of Systems Vital Signs Vitals VS - Last 72 Hours, by Label Date Time Temp Pulse Resp B/P Pulse Ox O2 Delivery O2 Flow Rate FiO2 05/31/17 07:50 98.2 94 18 141/76 96 05/31/17 02:00 98.2 84 18 111/66 95 05/30/17 20:00 98.1 91 18 132/72 98 05/30/17 14:22 98.4 121 20 109/80 99 05/30/17 07:40 97.8 99 18 118/68 97 05/30/17 02:00 98.2 84 18 115/59 97 05/29/17 20:00 98.6 113 18 132/79 99 05/29/17 07:30 98.8 100 20 135/78 99 05/29/17 01:52 98.8 95 20 119/71 97 05/28/17 19:36 98.6 103 19 148/75 98 Vital Signs Date Time Temp Pulse Resp B/P Pulse Ox O2 Delivery O2 Flow Rate FiO2 05/31/17 07:50 98.2 94 18 141/76 96 Intake and Output 05/30/17 05/30/17 05/31/17 15:00 23:00 07:00 Intake Total 400 ml Balance 400 ml Exam Constitutional: alert, oriented, well developed Psych: nl mood/affect, no complaints Respiratory: clear to auscultation, normal air movement Cardiovascular: nl pulses, regular rate and rhythm, No edema, No murmurs/extra sounds, No rub Gastrointestinal: bowel sounds, nl liver, spleen, non-tender, soft, No mass, No rebound or guarding Musculoskeletal: nl extremities to inspection Extremities: normal pulses, No calf tenderness, No clubbing, No cyanosis, No edema, No other, No palpable cord, No pitting pedal edema, No tenderness 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, nl mental status, nl speech, nl strength Additional Comments Bedside Glucose - 72 Hours Test 05/28/17 20:40 05/29/17 07:58 05/29/17 11:58 05/29/17 17:26 Bedside Glucose 115mg/dL (70-220) 109mg/dL (70-220) 140mg/dL (70-220) 123mg/dL (70-220) Test 05/29/17 20:22 05/30/17 08:18 05/31/17 07:56 05/31/17 17:20 Bedside Glucose 138mg/dL (70-220) 144mg/dL (70-220) 147mg/dL (70-220) 152mg/dL (70-220) Results Result Diagram: 05/31/17 0623 05/27/17 0616 Results 24 hrs Laboratory Tests Test 05/31/17 06:23 05/31/17 07:56 05/31/17 17:20 White Blood Count 8.2 # Red Blood Count 3.23 L Hemoglobin 10.8 L Hematocrit 31.2 L Mean Corpuscular Volume 96.6 Mean Corpuscular Hemoglobin 33.4 H Mean Corpuscular Hemoglobin Concent 34.6 Red Cell Distribution Width 13.6 Platelet Count 528 H Mean Platelet Volume 9.7 Neutrophils % 56.9 Lymphocytes % 25.5 Monocytes % 9.4 Eosinophils % 6.9 Basophils % 0.7 Nucleated Red Blood Cells % 0.0 Neutrophils # 4.6 Lymphocytes # 2.1 Monocytes # 0.8 Eosinophils # 0.6 H Basophils # 0.1 Nucleated Red Blood Cells # 0.0 Bedside Glucose 147 152 Medications Medications Current Medications Acetaminophen/ Hydrocodone Bitart ([place] (5/325)) 1 tab Q4H PRN PO PAIN LEVEL 1 -5 Last administered on 05/28/17t 12:33; Admin Dose 1 TAB; Start 05/26/17 at 17: 57 Acetaminophen/ Hydrocodone Bitart ([place] (5/325)) 2 tab Q4H PRN PO PAIN LEVEL 6 -10 Last administered on 05/31/17 06:51; Admin Dose 2 TAB; Start 05/26/17 at 17: 57 Ondansetron HCl (Zofran Inj) 4 mg Q6H PRN IV NAUSEA AND/OR VOMITING; Start at 17:57 Acetaminophen (Tylenol Tab) 650 mg Q4H PRN PO TEMP GREATER THAN 101F/HAILE/PAIN; Start 05/26/17 at 17:57 Lisinopril (Zestril) 10 mg DAILY PO Last administered on 05/31/17 08:38; Admin Dose 10 MG; Start 05/26/17 at 17:57 Glucose (Glutose) 15 gm Q15M PRN PO DECREASED GLUCOSE; Start 05/26/17 at 17:57 Glucose (Glutose) 22.5 gm Q15M PRN PO DECREASED GLUCOSE; Start 05/26/17 at 17: 57 Dextrose (D50w Syringe) 25 ml Q15M PRN IV DECREASED GLUCOSE; Start 05/26/17 at 17:57 Dextrose (D50w Syringe) 50 ml Q15M PRN IV DECREASED GLUCOSE; Start 05/26/17 at 17:57 Glucagon (Glucagen) 1 mg Q15M PRN IM DECREASED GLUCOSE; Start 05/26/17 at 17:57 Glucose (Glutose) 15 gm Q15M PRN BUCCAL DECREASED GLUCOSE; Start 05/26/17 at 17 :57 Hydromorphone HCl (Dilaudid) 1 mg Q4H PRN IV PAIN Last administered on 11:27; Admin Dose 1 MG; Start 05/26/17 at 18:30 Docusate Sodium (Colace) 100 mg BID PO Last administered on 05/31/17 08:38; Admin Dose 100 MG; Start 05/29/17 at 21:00 Senna (Senokot) 1 tab HS PO Last administered on 05/30/17 20:17; Admin Dose 1 TAB; Start 05/29/17 at 21:00 Bisacodyl (Dulcolax Supp) 10 mg DAILY PRN [place] CONSTIPATION; Start 05/29/17 at 20 :30 Magnesium Hydroxide (Milk Of Mag) 30 ml BID PRN PO CONSTIPATION; Start at 20:30 Lactulose (Enulose) 20 gm DAILY PRN PO CONSTIPATION; Start 05/29/17 at 20:30 Lorazepam (Ativan) 1 mg HS PRN PO SLEEP Last administered on 05/30/17t 22:13; Admin Dose 1 MG; Start 05/29/17 at 22:30 SAMANTA FRAIRE MD May 31, 2017 19:01
[2017-05-31 20:00] VITALS: BP 95/65; RESP 18
[2017-05-31] MEDS: SENNA TAB PO SCH (21:01)
[2017-06-01 02:48] VITALS: BP 119/74; RESP 18
--- NOTE | 2017-06-01 03:20 | CONS ---
DATE OF ADMISSION: 05/26/2017 DATE OF CONSULTATION: 05/31/2017 REASON FOR CONSULTATION: This consultation was requested by Dr. Arleth Atkins in order to evaluate the cognitive and emotional functioning of this patient related to his present medical condition. HISTORY OF PRESENT ILLNESS: The patient is a 72-year-old male. He had some back problems and has been diagnosed with lumbar stenosis with spondylolisthesis, and he is status post lumbar laminectomy. The patient was cleared medically and then sent to the acute rehabilitation unit for acute multidisciplinary rehabilitation. The patient is very motivated to get better and return to his previous level of functioning. The patient is in pain, and he just received some pain medications prior to this interview but did say that his pain was between a 4 and a 4.5 at the present time. The patient is anxious and does have difficulty presently dealing with his situation. The patient is fearful that he will not be able to return to his previous level of function, but is fairly motivated to do the best he can to increase his level of functioning. FAMILY/SOCIAL HISTORY: The patient reports that he lives alone in an apartment in [place] on the second floor, but the apartment building does have an elevator. The patient does have friends that come over and help him, and he will need some help when he gets discharged. The patient is wanting to return to his apartment after discharge. MEDICATION: The patient is currently on Ativan 1 mg q.h.s. p.r.n. SUBSTANCE USE: The patient reports at the present time he does not smoke, use alcohol, or other drugs. The patient was a heavy smoker in the 70s and was smoking 4 packs per day. The patient quit and has not smoked since. The patient also was a heavy drinker. He did stop drinking in the 70s and has not had a drink since. 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 MENTAL STATUS EXAMINATION: Appearance: The patient was seen in his wheelchair. He is of average height and weight. The patient wears glasses and is right-handed. Behavior: The patient was cooperative during the consultation. The patient did attempt to answer all questions presented to him by the interviewer. Mood and affect: The patient's mood appears to be slightly depressed. Affect does appear to be somewhat anxious. Perception: The patient reports no hallucinations or delusions. The patient was alert to person, place, situation, and time. Memory and cognition. The patient's memory and cognition appear to be intact. He was able to name the hospital. The patient was able to name the month and the year. The patient was able to spell "world" backwards. The patient was able to do one serial 7 subtractions from 100 but then made an error. The patient was able to say who the President of [facility] was but could not say who the governor of the state is or who the mayor of the city is. Overall, the patient's cognitive functioning appears to be adequate. Intelligence: Intelligence appears to fall in the average range. Insight: Good. Judgment: Good. Thought content: The patient is very concerned about his present medical condition. The patient does want to be able to return to his previous level of functioning and does want to be able to continue to be independent as he had been. DISCUSSION: The patient can likely benefit from some cognitive/behavioral psychotherapy [place] on the unit. The psychotherapy would focus on his underlying level of frustration and anxiety and depression regarding his medical problems. 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 Thank you very much, Dr. Arleth Atkins, for referring this individual. Please do not hesitate to call if you have any additional questions. Dictated By: Earl Saunders, PHD /fnt/rhys /Document#: [id number]
[2017-06-01] MEDS: HYDROmorphONE 1 MG/ML SYG IV PRN ×5 (05:04→18:45)
[2017-06-01] MEDS: INSULIN ASPART [NOVOLOG] 3 ML PEN SC SCH ×2 (07:05→12:00)
[2017-06-01] MEDS: ACCU-CHEK XX SCH ×2 (07:05→17:40)
[2017-06-01 07:30] VITALS: BP 143/74; RESP 20
[2017-06-01] MEDS: HYDROCODONE/APAP (5/325) TAB PO PRN ×2 (09:09→20:16)
[2017-06-01] MEDS: DOCUSATE SODIUM 100 MG CAP PO SCH ×2 (09:13→20:16)
[2017-06-01] MEDS: LISINOPRIL 10 MG TAB PO SCH (09:14)
[2017-06-01] MEDS: metFORMIN 500 MG TAB PO SCH ×2 (09:14→17:50)
--- NOTE | 2017-06-01 11:28 | CONS ---
Date/Time of Note Date/Time of Note DATE: 06/01/17 TIME: 11:27 Consult Date/Type/Reason Admit Date/Time May 26, 2017 at 17:11 Subjective Patient reports results with bowel program Objective Lungs clear anteriorly abdomen soft Minimal assist ambulation with their Vital Signs Date Time Temp Pulse Resp B/P Pulse Ox O2 Delivery O2 Flow Rate FiO2 06/01/17 07:30 97.8 94 20 143/74 100 Intake and Output 05/31/17 05/31/17 06/01/17 15:00 23:00 07:00 Intake Total 720 ml 360 ml 700 ml Balance 720 ml 360 ml 700 ml Results/Medications Result Diagram: 05/31/17 0623 Results 24 hrs Laboratory Tests Test 05/31/17 17:20 06/01/17 07:39 Bedside Glucose 152 117 Medications Current Medications Acetaminophen/ Hydrocodone Bitart ([place] (5/325)) 1 tab Q4H PRN PO PAIN LEVEL 1 -5 Last administered on 05/31/17 21:02; Admin Dose 1 TAB; Start 05/26/17 at 17: 57 Acetaminophen/ Hydrocodone Bitart ([place] (5/325)) 2 tab Q4H PRN PO PAIN LEVEL 6 -10 Last administered on 06/01/17 09:09; Admin Dose 2 TAB; Start 05/26/17 at 17: 57 Ondansetron HCl (Zofran Inj) 4 mg Q6H PRN IV NAUSEA AND/OR VOMITING; Start at 17:57 Acetaminophen (Tylenol Tab) 650 mg Q4H PRN PO TEMP GREATER THAN 101F/HAILE/PAIN; Start 05/26/17 at 17:57 Lisinopril (Zestril) 10 mg DAILY PO Last administered on 06/01/17 09:14; Admin Dose 10 MG; Start 05/26/17 at 17:57 Glucose (Glutose) 15 gm Q15M PRN PO DECREASED GLUCOSE; Start 05/26/17 at 17:57 Glucose (Glutose) 22.5 gm Q15M PRN PO DECREASED GLUCOSE; Start 05/26/17 at 17: 57 Dextrose (D50w Syringe) 25 ml Q15M PRN IV DECREASED GLUCOSE; Start 05/26/17 at 17:57 Dextrose (D50w Syringe) 50 ml Q15M PRN IV DECREASED GLUCOSE; Start 05/26/17 at 17:57 Glucagon (Glucagen) 1 mg Q15M PRN IM DECREASED GLUCOSE; Start 05/26/17 at 17:57 Glucose (Glutose) 15 gm Q15M PRN BUCCAL DECREASED GLUCOSE; Start 05/26/17 at 17 :57 Hydromorphone HCl (Dilaudid) 1 mg Q4H PRN IV PAIN Last administered on 10:30; Admin Dose 1 MG; Start 05/26/17 at 18:30 Docusate Sodium (Colace) 100 mg BID PO Last administered on 06/01/17 09:13; Admin Dose 100 MG; Start 05/29/17 at 21:00 Senna (Senokot) 1 tab HS PO Last administered on 05/31/17 21:01; Admin Dose 1 TAB; Start 05/29/17 at 21:00 Bisacodyl (Dulcolax Supp) 10 mg DAILY PRN [place] CONSTIPATION; Start 05/29/17 at 20 :30 Magnesium Hydroxide (Milk Of Mag) 30 ml BID PRN PO CONSTIPATION; Start at 20:30 Lactulose (Enulose) 20 gm DAILY PRN PO CONSTIPATION; Start 05/29/17 at 20:30 Lorazepam (Ativan) 1 mg HS PRN PO SLEEP Last administered on 05/30/17 22:13; Admin Dose 1 MG; Start 05/29/17 at 22:30 Assessment/Plan Additional Assessment/Plan Rehabilitation-Lumbar spinal stenosis with spondylolisthesis status post Lumbar Laminectomy Patient motivated for treatment plan continue rehab program Acute pain Syndrome-improving Anemia Diabetes Mellitus type 2 Hypertension Alcoholic Liver Disease CHANTELLE YO MD Jun 01, 2017 11:28
--- NOTE | 2017-06-01 13:36 | PN ---
Date/Time of Note Date/Time of Note DATE: 06/01/17 TIME: 13:34 Assessment/Plan VTE Prophylaxis VTE Prophylaxis Intervention: ambulation, SCD's Lines/Catheters IV Catheter Type (from Nrsg): Saline Lock Assessment/Plan Problems: (1) Lumbar spinal stenosis Status: Resolved Comment: Cont. rehab (2) Type 2 diabetes mellitus without complications Status: Chronic Comment: FS in goal range. Cont. metformin. (3) Essential (primary) hypertension Status: Chronic Comment: BP in goal range. Cont. current antihypertensives. Subjective 24 Hr Interval Summary Constitutional: improved, no complaints Respiratory: no complaints Cardiovascular: no complaints Gastrointestinal: no complaints Genitourinary: no complaints Musculoskeletal: back pain (center of back but able to ambulate. Did stairs today. Feels stiff.) Neurologic: no complaints Exam/Review of Systems Vital Signs Vitals VS - Last 72 Hours, by Label Date Time Temp Pulse Resp B/P Pulse Ox O2 Delivery O2 Flow Rate FiO2 06/01/17 07:30 97.8 94 20 143/74 100 06/01/17 02:48 98.5 95 18 119/74 95 05/31/17 20:00 98.0 82 18 95/65 98 05/31/17 07:50 98.2 94 18 141/76 96 05/31/17 02:00 98.2 84 18 111/66 95 05/30/17 20:00 98.1 91 18 132/72 98 05/30/17 14:22 98.4 121 20 109/80 99 05/30/17 07:40 97.8 99 18 118/68 97 05/30/17 02:00 98.2 84 18 115/59 97 05/29/17 20:00 98.6 113 18 132/79 99 Vital Signs Date Time Temp Pulse Resp B/P Pulse Ox O2 Delivery O2 Flow Rate FiO2 06/01/17 07:30 97.8 94 20 143/74 100 Intake and Output 05/31/17 05/31/17 06/01/17 15:00 23:00 07:00 Intake Total 720 ml 360 ml 700 ml Balance 720 ml 360 ml 700 ml Exam Constitutional: alert, oriented, well developed Respiratory: clear to auscultation, normal air movement Cardiovascular: nl pulses, regular rate and rhythm, No edema, No murmurs/extra sounds, No rub Gastrointestinal: bowel sounds, nl liver, spleen, non-tender, soft, No mass, No rebound or guarding Musculoskeletal: nl extremities to inspection Extremities: normal pulses, No clubbing, No cyanosis, No edema Neurological: 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-XII 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, nl mental status, nl speech, nl strength Additional Comments Bedside Glucose - 72 Hours Test 05/29/17 17:26 05/29/17 20:22 05/30/17 08:18 05/31/17 07:56 Bedside Glucose 123mg/dL (70-220) 138mg/dL (70-220) 144mg/dL (70-220) 147mg/dL (70-220) Test 05/31/17 17:20 06/01/17 07:39 06/01/17 11:59 Bedside Glucose 152mg/dL (70-220) 117mg/dL (70-220) 142mg/dL (70-220) Results Result Diagram: 05/31/17 0623 Results 24 hrs Laboratory Tests Test 05/31/17 17:20 06/01/17 07:39 06/01/17 11:59 Bedside Glucose 152 117 142 Medications Medications Current Medications Acetaminophen/ Hydrocodone Bitart ([place] (5/325)) 1 tab Q4H PRN PO PAIN LEVEL 1 -5 Last administered on 05/31/17 21:02; Admin Dose 1 TAB; Start 05/26/17 at 17: 57 Acetaminophen/ Hydrocodone Bitart ([place] (5/325)) 2 tab Q4H PRN PO PAIN LEVEL 6 -10 Last administered on 06/01/17 09:09; Admin Dose 2 TAB; Start 05/26/17 at 17: 57 Ondansetron HCl (Zofran Inj) 4 mg Q6H PRN IV NAUSEA AND/OR VOMITING; Start at 17:57 Acetaminophen (Tylenol Tab) 650 mg Q4H PRN PO TEMP GREATER THAN 101F/HAILE/PAIN; Start 05/26/17 at 17:57 Lisinopril (Zestril) 10 mg DAILY PO Last administered on 06/01/17 09:14; Admin Dose 10 MG; Start 05/26/17 at 17:57 Glucose (Glutose) 15 gm Q15M PRN PO DECREASED GLUCOSE; Start 05/26/17 at 17:57 Glucose (Glutose) 22.5 gm Q15M PRN PO DECREASED GLUCOSE; Start 05/26/17 at 17: 57 Dextrose (D50w Syringe) 25 ml Q15M PRN IV DECREASED GLUCOSE; Start 05/26/17 at 17:57 Dextrose (D50w Syringe) 50 ml Q15M PRN IV DECREASED GLUCOSE; Start 05/26/17 at 17:57 Glucagon (Glucagen) 1 mg Q15M PRN IM DECREASED GLUCOSE; Start 05/26/17 at 17:57 Glucose (Glutose) 15 gm Q15M PRN BUCCAL DECREASED GLUCOSE; Start 05/26/17 at 17 :57 Hydromorphone HCl (Dilaudid) 1 mg Q4H PRN IV PAIN Last administered on 10:30; Admin Dose 1 MG; Start 05/26/17 at 18:30 Docusate Sodium (Colace) 100 mg BID PO Last administered on 06/01/17 09:13; Admin Dose 100 MG; Start 05/29/17 at 21:00 Senna (Senokot) 1 tab HS PO Last administered on 05/31/17 21:01; Admin Dose 1 TAB; Start 05/29/17 at 21:00 Bisacodyl (Dulcolax Supp) 10 mg DAILY PRN [place] CONSTIPATION; Start 05/29/17 at 20 :30 Magnesium Hydroxide (Milk Of Mag) 30 ml BID PRN PO CONSTIPATION; Start at 20:30 Lactulose (Enulose) 20 gm DAILY PRN PO CONSTIPATION; Start 05/29/17 at 20:30 Lorazepam (Ativan) 1 mg HS PRN PO SLEEP Last administered on 05/30/17 22:13; Admin Dose 1 MG; Start 05/29/17 at 22:30 SAMANTA FRAIRE MD Jun 01, 2017 13:36
[2017-06-01 14:00] VITALS: BP 126/64; RESP 18
[2017-06-01] MEDS: PRAMIPEXOLE 0.125 MG TAB PO SCH (18:53)
[2017-06-01 20:00] VITALS: BP 119/72; RESP 19
[2017-06-01] MEDS: SENNA TAB PO SCH (20:16)
[2017-06-02] MEDS: HYDROmorphONE 1 MG/ML SYG IV PRN ×2 (06:08→17:30)
[2017-06-02] MEDS: HYDROCODONE/APAP (5/325) TAB PO PRN ×2 (07:04→20:26)
[2017-06-02] MEDS: ACCU-CHEK XX SCH ×2 (07:05→17:05)
[2017-06-02] MEDS: INSULIN ASPART [NOVOLOG] 3 ML PEN SC SCH ×2 (07:05→17:05)
[2017-06-02 07:30] VITALS: BP 132/76; RESP 18
[2017-06-02] MEDS: metFORMIN 500 MG TAB PO SCH ×2 (08:36→17:38)
[2017-06-02] MEDS: DOCUSATE SODIUM 100 MG CAP PO SCH ×2 (08:36→20:26)
[2017-06-02] MEDS: LISINOPRIL 10 MG TAB PO SCH (08:36)
--- NOTE | 2017-06-02 12:32 | CONS ---
Date/Time of Note Date/Time of Note DATE: 06/02/17 TIME: 12:32 Consult Date/Type/Reason Admit Date/Time May 26, 2017 at 17:11 Subjective Overall improvement Objective Lungs clear abdomen soft Contact-guard assist to ambulate Vital Signs Date Time Temp Pulse Resp B/P Pulse Ox O2 Delivery O2 Flow Rate FiO2 06/02/17 07:30 98.0 99 18 132/76 98 Intake and Output 06/01/17 06/01/17 06/02/17 15:00 23:00 07:00 Intake Total 580 ml 400 ml Output Total 200 ml Balance 580 ml 200 ml Results/Medications Result Diagram: 05/31/17 0623 Results 24 hrs Laboratory Tests Test 06/01/17 17:29 06/02/17 07:55 Bedside Glucose 139 151 Medications Current Medications Acetaminophen/ Hydrocodone Bitart ([place] (5/325)) 1 tab Q4H PRN PO PAIN LEVEL 1 -5 Last administered on 05/31/17 21:02; Admin Dose 1 TAB; Start 05/26/17 at 17: 57 Acetaminophen/ Hydrocodone Bitart ([place] (5/325)) 2 tab Q4H PRN PO PAIN LEVEL 6 -10 Last administered on 06/02/17 07:04; Admin Dose 2 TAB; Start 05/26/17 at 17: 57 Ondansetron HCl (Zofran Inj) 4 mg Q6H PRN IV NAUSEA AND/OR VOMITING; Start at 17:57 Acetaminophen (Tylenol Tab) 650 mg Q4H PRN PO TEMP GREATER THAN 101F/HAILE/PAIN; Start 05/26/17 at 17:57 Lisinopril (Zestril) 10 mg DAILY PO Last administered on 06/02/17 08:36; Admin Dose 10 MG; Start 05/26/17 at 17:57 Glucose (Glutose) 15 gm Q15M PRN PO DECREASED GLUCOSE; Start 05/26/17 at 17:57 Glucose (Glutose) 22.5 gm Q15M PRN PO DECREASED GLUCOSE; Start 05/26/17 at 17: 57 Dextrose (D50w Syringe) 25 ml Q15M PRN IV DECREASED GLUCOSE; Start 05/26/17 at 17:57 Dextrose (D50w Syringe) 50 ml Q15M PRN IV DECREASED GLUCOSE; Start 05/26/17 at 17:57 Glucagon (Glucagen) 1 mg Q15M PRN IM DECREASED GLUCOSE; Start 05/26/17 at 17:57 Glucose (Glutose) 15 gm Q15M PRN BUCCAL DECREASED GLUCOSE; Start 05/26/17 at 17 :57 Hydromorphone HCl (Dilaudid) 1 mg Q4H PRN IV PAIN Last administered on 06:08; Admin Dose 1 MG; Start 05/26/17 at 18:30 Docusate Sodium (Colace) 100 mg BID PO Last administered on 06/02/17 08:36; Admin Dose 100 MG; Start 05/29/17 at 21:00 Senna (Senokot) 1 tab HS PO Last administered on 06/01/17 20:16; Admin Dose 1 TAB; Start 05/29/17 at 21:00 Bisacodyl (Dulcolax Supp) 10 mg DAILY PRN [place] CONSTIPATION; Start 05/29/17 at 20 :30 Magnesium Hydroxide (Milk Of Mag) 30 ml BID PRN PO CONSTIPATION; Start at 20:30 Lactulose (Enulose) 20 gm DAILY PRN PO CONSTIPATION; Start 05/29/17 at 20:30 Lorazepam (Ativan) 1 mg HS PRN PO SLEEP Last administered on 05/30/17 22:13; Admin Dose 1 MG; Start 05/29/17 at 22:30 Assessment/Plan Additional Assessment/Plan Rehabilitation-Lumbar spinal stenosis with spondylolisthesis status post Lumbar Laminectomy Steady functional gains continue treatment plan Acute pain Syndrome-reports pain under adequate control Anemia Diabetes Mellitus type 2 Hypertension Alcoholic Liver Disease CHANTELLE YO MD Jun 02, 2017 12:32
[2017-06-02 14:00] VITALS: BP 95/64; RESP 20
[2017-06-02] MEDS: PRAMIPEXOLE 0.125 MG TAB PO SCH (17:38)
--- NOTE | 2017-06-02 18:30 | PN ---
Date/Time of Note Date/Time of Note DATE: 06/02/17 TIME: 18:26 Assessment/Plan VTE Prophylaxis VTE Prophylaxis Intervention: ambulation, SCD's Lines/Catheters IV Catheter Type (from Nrsg): Peripheral IV Assessment/Plan Problems: (1) Lumbar spinal stenosis Status: Resolved Comment: Cont. rehab. Improving slowly. (2) Type 2 diabetes mellitus without complications Status: Chronic Comment: Good. control. Cont. metformin (3) Essential (primary) hypertension Status: Chronic Comment: Good BP control. Cont. current regimen (4) Restless leg syndrome Status: Chronic Comment: Good control w/ lowest dose of mirapex. Will cont. Subjective 24 Hr Interval Summary Constitutional: improved, no complaints Respiratory: no complaints Cardiovascular: no complaints Gastrointestinal: no complaints Genitourinary: no complaints Musculoskeletal: back pain (back feels stiff) Neurologic: other (RLS controlled by mirapex dose) Exam/Review of Systems Vital Signs Vitals VS - Last 72 Hours, by Label Date Time Temp Pulse Resp B/P Pulse Ox O2 Delivery O2 Flow Rate FiO2 06/02/17 14:00 98.4 120 20 95/64 96 06/02/17 07:30 98.0 99 18 132/76 98 06/01/17 20:00 98.2 102 19 119/72 98 06/01/17 14:00 98.1 100 18 126/64 99 06/01/17 07:30 97.8 94 20 143/74 100 06/01/17 02:48 98.5 95 18 119/74 95 05/31/17 20:00 98.0 82 18 95/65 98 05/31/17 07:50 98.2 94 18 141/76 96 05/31/17 02:00 98.2 84 18 111/66 95 05/30/17 20:00 98.1 91 18 132/72 98 Vital Signs Date Time Temp Pulse Resp B/P Pulse Ox O2 Delivery O2 Flow Rate FiO2 06/02/17 14:00 98.4 120 20 95/64 96 Intake and Output 06/01/17 06/01/17 06/02/17 15:00 23:00 07:00 Intake Total 580 ml 400 ml Output Total 200 ml Balance 580 ml 200 ml Exam Constitutional: alert, oriented, well developed Psych: nl mood/affect, no complaints Respiratory: clear to auscultation, normal air movement Cardiovascular: nl pulses, regular rate and rhythm, No edema, No murmurs/extra sounds, No rub Gastrointestinal: bowel sounds, nl liver, spleen, non-tender, soft, No mass, No rebound or guarding Musculoskeletal: nl extremities to inspection Extremities: normal pulses, No clubbing, No cyanosis, No edema Neurological: SHIPPING AND RECEIVING ASSISTANT II-XII intact, nl mental status, nl speech, nl strength Additional Comments Bedside Glucose - 72 Hours Test 05/31/17 07:56 05/31/17 17:20 06/01/17 07:39 06/01/17 11:59 Bedside Glucose 147mg/dL (70-220) 152mg/dL (70-220) 117mg/dL (70-220) 142mg/dL (70-220) Test 06/01/17 17:29 06/02/17 07:55 06/02/17 17:37 Bedside Glucose 139mg/dL (70-220) 151mg/dL (70-220) 136mg/dL (70-220) Results Result Diagram: 05/31/17 0623 Results 24 hrs Laboratory Tests Test 06/02/17 07:55 06/02/17 17:37 Bedside Glucose 151 136 Medications Medications Current Medications Acetaminophen/ Hydrocodone Bitart ([place] (5/325)) 1 tab Q4H PRN PO PAIN LEVEL 1 -5 Last administered on 05/31/17 21:02; Admin Dose 1 TAB; Start 05/26/17 at 17: 57 Acetaminophen/ Hydrocodone Bitart ([place] (5/325)) 2 tab Q4H PRN PO PAIN LEVEL 6 -10 Last administered on 06/02/17 07:04; Admin Dose 2 TAB; Start 05/26/17 at 17: 57 Ondansetron HCl (Zofran Inj) 4 mg Q6H PRN IV NAUSEA AND/OR VOMITING; Start at 17:57 Acetaminophen (Tylenol Tab) 650 mg Q4H PRN PO TEMP GREATER THAN 101F/HAILE/PAIN; Start 05/26/17 at 17:57 Lisinopril (Zestril) 10 mg DAILY PO Last administered on 06/02/17 08:36; Admin Dose 10 MG; Start 05/26/17 at 17:57 Glucose (Glutose) 15 gm Q15M PRN PO DECREASED GLUCOSE; Start 05/26/17 at 17:57 Glucose (Glutose) 22.5 gm Q15M PRN PO DECREASED GLUCOSE; Start 05/26/17 at 17: 57 Dextrose (D50w Syringe) 25 ml Q15M PRN IV DECREASED GLUCOSE; Start 05/26/17 at 17:57 Dextrose (D50w Syringe) 50 ml Q15M PRN IV DECREASED GLUCOSE; Start 05/26/17 at 17:57 Glucagon (Glucagen) 1 mg Q15M PRN IM DECREASED GLUCOSE; Start 05/26/17 at 17:57 Glucose (Glutose) 15 gm Q15M PRN BUCCAL DECREASED GLUCOSE; Start 05/26/17 at 17 :57 Hydromorphone HCl (Dilaudid) 1 mg Q4H PRN IV PAIN Last administered on 17:30; Admin Dose 1 MG; Start 05/26/17 at 18:30 Docusate Sodium (Colace) 100 mg BID PO Last administered on 06/02/17 08:36; Admin Dose 100 MG; Start 05/29/17 at 21:00 Senna (Senokot) 1 tab HS PO Last administered on 06/01/17 20:16; Admin Dose 1 TAB; Start 05/29/17 at 21:00 Bisacodyl (Dulcolax Supp) 10 mg DAILY PRN [place] CONSTIPATION; Start 05/29/17 at 20 :30 Magnesium Hydroxide (Milk Of Mag) 30 ml BID PRN PO CONSTIPATION; Start at 20:30 Lactulose (Enulose) 20 gm DAILY PRN PO CONSTIPATION; Start 05/29/17 at 20:30 Lorazepam (Ativan) 1 mg HS PRN PO SLEEP Last administered on 05/30/17 22:13; Admin Dose 1 MG; Start 05/29/17 at 22:30 SAMANTA FRAIRE MD Jun 02, 2017 18:30
[2017-06-02 20:00] VITALS: BP 144/65; RESP 18
[2017-06-02] MEDS: LORAZEPAM 1 MG TAB PO PRN (20:26)
[2017-06-02] MEDS: SENNA TAB PO SCH (20:26)
[2017-06-03] MEDS: HYDROmorphONE 1 MG/ML SYG IV PRN ×4 (01:03→21:14)
[2017-06-03 02:00] VITALS: BP 138/78; RESP 18
[2017-06-03] MEDS: ACCU-CHEK XX SCH ×2 (07:05→16:54)
[2017-06-03] MEDS: INSULIN ASPART [NOVOLOG] 3 ML PEN SC SCH ×2 (07:05→16:54)
[2017-06-03 07:32] VITALS: BP 120/68; RESP 18
[2017-06-03] MEDS: DOCUSATE SODIUM 100 MG CAP PO SCH ×2 (09:30→20:27)
[2017-06-03] MEDS: metFORMIN 500 MG TAB PO SCH ×2 (09:30→17:21)
[2017-06-03] MEDS: LISINOPRIL 10 MG TAB PO SCH (09:31)
--- NOTE | 2017-06-03 09:48 | PN ---
Date/Time of Note Date/Time of Note DATE: 06/03/17 TIME: 09:42 Assessment/Plan VTE Prophylaxis VTE Prophylaxis Intervention: ambulation, SCD's Lines/Catheters IV Catheter Type (from Nrsg): Peripheral IV Urinary Cath still in place: No Assessment/Plan Assessment/Plan 1. Lumbar spinal stenosis with neurogenic claudication, status post L4-5 bilateral laminectomy, medial facetectomy, and foraminotomy, with impaired mobility/gait/ADLs. Continue PT/OT. SBA for supine to sit, SBA for transfers. Surgical site care. Spinal precautions. 2. Acute post operative pain with underlying chronic pain. Controlled, continue pain regimen. 3. Anemia. Continue to monitor hemoglobin/hematocrit. 4. Diabetes Mellitus type 2. Blood sugars controlled. Continue current management. 5. Hypertension. BP overall controlled. Internal medicine following. 6. Episode of chest pain overnight. Monitor for any further chest pain, patient instructed to tell staff if any recurrence. Check labs. Further work up and management per internal medicine, discussed with nursing staff. Subjective 24 Hr Interval Summary Free Text/Dictation Rehab progress note Subjective: Reports 3/10 pain in his low back. Reports bowel movement yesterday. ROS: Reports episode of chest pain last night that resolved on its own, no other associated symptoms. No further chest pain, no palpitations, no shortness of breath, no abdominal pain, no nausea or vomiting, no chills. Exam/Review of Systems Vital Signs Vitals Vital Signs Date Time Temp Pulse Resp B/P Pulse Ox O2 Delivery O2 Flow Rate FiO2 06/03/17 07:32 98.4 88 18 120/68 96 Intake and Output 06/02/17 06/02/17 06/03/17 15:00 23:00 07:00 Intake Total 640 ml Output Total 200 ml 320 ml Balance -200 ml 320 ml Exam General: Awake, alert, no acute distress, well developed CV: Regular rate, s1s2 Lungs: No crackles, no wheezing Abdomen soft, nontender, +bowel sounds Extremities without cyanosis, no distal edema Neuro: Follows simple commands. Antigravity strength B KE/DF/PF. Results Result Diagram: 05/31/17 0623 Results 24 hrs Laboratory Tests Test 06/02/17 17:37 06/03/17 07:58 Bedside Glucose 136 130 Medications Medications Current Medications Acetaminophen/ Hydrocodone Bitart ([place] (5/325)) 1 tab Q4H PRN PO PAIN LEVEL 1 -5 Last administered on 06/02/17 20:26; Admin Dose 1 TAB; Start 05/26/17 at 17: 57 Acetaminophen/ Hydrocodone Bitart ([place] (5/325)) 2 tab Q4H PRN PO PAIN LEVEL 6 -10 Last administered on 06/02/17 07:04; Admin Dose 2 TAB; Start 05/26/17 at 17: 57 Ondansetron HCl (Zofran Inj) 4 mg Q6H PRN IV NAUSEA AND/OR VOMITING; Start at 17:57 Acetaminophen (Tylenol Tab) 650 mg Q4H PRN PO TEMP GREATER THAN 101F/HAILE/PAIN; Start 05/26/17 at 17:57 Lisinopril (Zestril) 10 mg DAILY PO Last administered on 06/03/17 09:31; Admin Dose 10 MG; Start 05/26/17 at 17:57 Glucose (Glutose) 15 gm Q15M PRN PO DECREASED GLUCOSE; Start 05/26/17 at 17:57 Glucose (Glutose) 22.5 gm Q15M PRN PO DECREASED GLUCOSE; Start 05/26/17 at 17: 57 Dextrose (D50w Syringe) 25 ml Q15M PRN IV DECREASED GLUCOSE; Start 05/26/17 at 17:57 Dextrose (D50w Syringe) 50 ml Q15M PRN IV DECREASED GLUCOSE; Start 05/26/17 at 17:57 Glucagon (Glucagen) 1 mg Q15M PRN IM DECREASED GLUCOSE; Start 05/26/17 at 17:57 Glucose (Glutose) 15 gm Q15M PRN BUCCAL DECREASED GLUCOSE; Start 05/26/17 at 17 :57 Hydromorphone HCl (Dilaudid) 1 mg Q4H PRN IV PAIN Last administered on 05:49; Admin Dose 1 MG; Start 05/26/17 at 18:30 Docusate Sodium (Colace) 100 mg BID PO Last administered on 06/03/17 09:30; Admin Dose 100 MG; Start 05/29/17 at 21:00 Senna (Senokot) 1 tab HS PO Last administered on 06/02/17 20:26; Admin Dose 1 TAB; Start 05/29/17 at 21:00 Bisacodyl (Dulcolax Supp) 10 mg DAILY PRN [place] CONSTIPATION; Start 05/29/17 at 20 :30 Magnesium Hydroxide (Milk Of Mag) 30 ml BID PRN PO CONSTIPATION; Start at 20:30 Lactulose (Enulose) 20 gm DAILY PRN PO CONSTIPATION; Start 05/29/17 at 20:30 Lorazepam (Ativan) 1 mg HS PRN PO SLEEP Last administered on 06/02/17 20:26; Admin Dose 1 MG; Start 05/29/17 at 22:30 GALINA MONTERO Jun 03, 2017 09:48
[2017-06-03] MEDS: HYDROCODONE/APAP (5/325) TAB PO PRN (11:10)
--- NOTE | 2017-06-03 13:18 | PN ---
Date/Time of Note Date/Time of Note DATE: 06/03/17 TIME: 13:15 Assessment/Plan VTE Prophylaxis VTE Prophylaxis Intervention: other Lines/Catheters IV C[facility] Type (from [facility] Peripheral IV Urinary Cath still in place: No Assessment/Plan Problems: (1) Chest pain Status: Acute Comment: He had a brief episode of chest pain self-limited and self stopped. He is a somewhat challenging historian. I will go ahead and get the troponins and place him on a beta-мария. In the meantime he has no recollection of the name of the print decorator who cleared him for the surgery and unfortunately those records are unavailable in the hospital computer system. We will manage him expectantly Qualifiers: Chest pain type: unspecified Qualified Code: R07.9 - Chest pain, unspecified type (2) Coronary artery disease Status: Chronic Comment: He has reported this detail which apparently was not heretofore known the treating physicians. Will observe him carefully and possibly a consultation Qualifiers: Coronary Disease-Associated Artery/Lesion type: [place] artery [place] vs. transplanted heart: [place] heart Associated angina: without angina Qualified Code: I25.10 - Coronary artery disease involving [place] coronary artery of [place] heart without angina pectoris (3) Type 2 diabetes mellitus without complications Status: Chronic Comment: Adequate control Qualifiers: Diabetes mellitus care home insulin use: without care home use Qualified Code: E11.9 - Type 2 diabetes mellitus without complication, without long-term current use of insulin (4) Aftercare following surgery of the musculoskeletal system Status: Acute Comment: Continue with rehabilitative services Subjective 24 Hr Interval Summary Free Text/Dictation Patient reports that last night he had 10 minutes of chest pain and shortness of breath. This was nonradiating. He stated reminded him of a cardiac symptoms that he had 10 years ago. Self remitted without therapeutic intervention and has not recurred. Constitutional: no complaints Respiratory: no complaints Cardiovascular: other (As described above) Gastrointestinal: no complaints Genitourinary: no complaints Exam/Review of Systems Vital Signs Vitals Vital Signs Date Time Temp Pulse Resp B/P Pulse Ox O2 Delivery O2 Flow Rate FiO2 06/03/17 07:32 98.4 88 18 120/68 96 Intake and Output 06/02/17 06/02/17 06/03/17 15:00 23:00 07:00 Intake Total 640 ml Output Total 200 ml 320 ml Balance -200 ml 320 ml Exam Constitutional: alert, oriented Respiratory: clear to auscultation, normal air movement Cardiovascular: nl pulses, regular rate and rhythm Gastrointestinal: nl liver, spleen, non-tender, soft Results Result Diagram: 05/31/17 0623 Results 24 hrs Laboratory Tests Test 06/02/17 17:37 06/03/17 07:58 06/03/17 12:02 Bedside Glucose 136 130 125 Medications Medications Current Medications Acetaminophen/ Hydrocodone Bitart ([place] (5/325)) 1 tab Q4H PRN PO PAIN LEVEL 1 -5 Last administered on 06/02/17 20:26; Admin Dose 1 TAB; Start 05/26/17 at 17: 57 Acetaminophen/ Hydrocodone Bitart ([place] (5/325)) 2 tab Q4H PRN PO PAIN LEVEL 6 -10 Last administered on 06/03/17 11:10; Admin Dose 2 TAB; Start 05/26/17 at 17: 57 Ondansetron HCl (Zofran Inj) 4 mg Q6H PRN IV NAUSEA AND/OR VOMITING; Start at 17:57 Acetaminophen (Tylenol Tab) 650 mg Q4H PRN PO TEMP GREATER THAN 101F/HAILE/PAIN; Start 05/26/17 at 17:57 Lisinopril (Zestril) 10 mg DAILY PO Last administered on 06/03/17 09:31; Admin Dose 10 MG; Start 05/26/17 at 17:57 Glucose (Glutose) 15 gm Q15M PRN PO DECREASED GLUCOSE; Start 05/26/17 at 17:57 Glucose (Glutose) 22.5 gm Q15M PRN PO DECREASED GLUCOSE; Start 05/26/17 at 17: 57 Dextrose (D50w Syringe) 25 ml Q15M PRN IV DECREASED GLUCOSE; Start 05/26/17 at 17:57 Dextrose (D50w Syringe) 50 ml Q15M PRN IV DECREASED GLUCOSE; Start 05/26/17 at 17:57 Glucagon (Glucagen) 1 mg Q15M PRN IM DECREASED GLUCOSE; Start 05/26/17 at 17:57 Glucose (Glutose) 15 gm Q15M PRN BUCCAL DECREASED GLUCOSE; Start 05/26/17 at 17 :57 Hydromorphone HCl (Dilaudid) 1 mg Q4H PRN IV PAIN Last administered on 05:49; Admin Dose 1 MG; Start 05/26/17 at 18:30 Docusate Sodium (Colace) 100 mg BID PO Last administered on 06/03/17 09:30; Admin Dose 100 MG; Start 05/29/17 at 21:00 Senna (Senokot) 1 tab HS PO Last administered on 06/02/17 20:26; Admin Dose 1 TAB; Start 05/29/17 at 21:00 Bisacodyl (Dulcolax Supp) 10 mg DAILY PRN [place] CONSTIPATION; Start 05/29/17 at 20 :30 Magnesium Hydroxide (Milk Of Mag) 30 ml BID PRN PO CONSTIPATION; Start at 20:30 Lactulose (Enulose) 20 gm DAILY PRN PO CONSTIPATION; Start 05/29/17 at 20:30 Lorazepam (Ativan) 1 mg HS PRN PO SLEEP Last administered on 06/02/17 20:26; Admin Dose 1 MG; Start 05/29/17 at 22:30 NOREEN LINDSAY MD Jun 03, 2017 13:18
[2017-06-03] MEDS: METOPROLOL (XL) 25 MG TAB PO SCH ×2 (14:19→20:27)
[2017-06-03 14:21] VITALS: BP 122/57; PULSE 106; RESP 18
[2017-06-03 15:04] VITALS: BP 122/78; RESP 18
[2017-06-03] MEDS: PRAMIPEXOLE 0.125 MG TAB PO SCH (17:43)
[2017-06-03 20:08] VITALS: BP 106/64; PULSE 80; RESP 18
[2017-06-03] MEDS: LORAZEPAM 1 MG TAB PO PRN (20:27)
[2017-06-03] MEDS: SENNA TAB PO SCH (20:27)
[2017-06-04 01:53] VITALS: BP 143/72; RESP 18
[2017-06-04] MEDS: HYDROmorphONE 1 MG/ML SYG IV PRN ×5 (01:54→19:01)
[2017-06-04] MEDS: INSULIN ASPART [NOVOLOG] 3 ML PEN SC SCH ×2 (07:05→19:03)
[2017-06-04] MEDS: ACCU-CHEK XX SCH ×2 (07:05→18:30)
[2017-06-04 07:36] LABS: CALCIUM 9.7 mg/dl (8.4-10.2); CREATININE 0.65 mg/dl (0.61-1.24); MAGNESIUM 2.2 mg/dl (1.7-2.5); POTASSIUM 4.8 mmol/L (3.5-5.1)
[2017-06-04] MEDS: metFORMIN 500 MG TAB PO SCH ×2 (08:19→18:30)
[2017-06-04] MEDS: DOCUSATE SODIUM 100 MG CAP PO SCH ×3 (08:52→20:56)
--- NOTE | 2017-06-04 09:43 | PN ---
Date/Time of Note Date/Time of Note DATE: 06/04/17 TIME: 09:30 Assessment/Plan VTE Prophylaxis VTE Prophylaxis Intervention: ambulation, SCD's, other Lines/Catheters IV Catheter Type (from Nrsg): Saline Lock Urinary Cath still in place: No Assessment/Plan Assessment/Plan 1. Lumbar spinal stenosis with neurogenic claudication, status post L4-5 bilateral laminectomy, medial facetectomy, and foraminotomy, with impaired mobility/gait/ADLs. Continue PT/OT. CGA for lower body dressing, SPV for upper body dressing. 2. Acute post operative pain. Controlled, continue pain regimen including prn norco. 3. Anemia. Continue to monitor hemoglobin/hematocrit. 4. Diabetes Mellitus type 2. Blood sugars controlled on metformin and insulin sliding scale, monitor. 5. Hypertension. Internal medicine following. 6. Patient reports history of coronary artery disease with stent in the past. Episode of chest pain Monday night. No further episodes since. Elevated troponin , trending down on labs today. Internal medicine managing. Consider cardiology consult. Subjective 24 Hr Interval Summary Free Text/Dictation Rehab progress note Subjective: Reports moderate pain in his back, alleviated with pain medications. No further chest pain since episode Monday night. ROS: No palpitations, no shortness of breath, no abdominal pain, no nausea or vomiting, no chills. Reports hard stools. Exam/Review of Systems Vital Signs Vitals Vital Signs Date Time Temp Pulse Resp B/P Pulse Ox O2 Delivery O2 Flow Rate FiO2 06/04/17 01:53 97.5 93 18 143/72 99 06/03/17 20:08 Room Air Intake and Output 06/03/17 06/03/17 06/04/17 15:00 23:00 07:00 Intake Total 800 ml 360 ml Output Total 180 ml 350 ml 200 ml Balance 620 ml 10 ml -200 ml Exam General: Awake, alert, no acute distress, well developed CV: Regular rate, s1s2 Lungs: Symmetrical air entry bilaterally, no wheezing Abdomen soft, nontender, +bowel sounds Extremities nontender, no cyanosis, no distal edema Neuro: No focal changes. Follows simple commands. Results Result Diagram: 05/31/17 0606/04/17 0622 Results 24 hrs Laboratory Tests Test 06/03/17 12:02 06/03/17 14:10 06/03/17 16:50 06/04/17 06:22 Bedside Glucose 125 164 Troponin I 0.637 *H 0.275 *H Sodium Level 143 Potassium Level 4.8 Chloride Level 100 Carbon Dioxide Level 30 Anion Gap 18 H Blood Urea Nitrogen 18 Creatinine 0.65 Glucose Level 117 Calcium Level 9.7 Magnesium Level 2.2 Test 06/04/17 08:01 Bedside Glucose 129 Medications Medications Current Medications Acetaminophen/ Hydrocodone Bitart ([place] (5/325)) 1 tab Q4H PRN PO PAIN LEVEL 1 -5 Last administered on 06/02/17 20:26; Admin Dose 1 TAB; Start 05/26/17 at 17: 57 Acetaminophen/ Hydrocodone Bitart ([place] (5/325)) 2 tab Q4H PRN PO PAIN LEVEL 6 -10 Last administered on 06/03/17 11:10; Admin Dose 2 TAB; Start 05/26/17 at 17: 57 Ondansetron HCl (Zofran Inj) 4 mg Q6H PRN IV NAUSEA AND/OR VOMITING; Start at 17:57 Acetaminophen (Tylenol Tab) 650 mg Q4H PRN PO TEMP GREATER THAN 101F/HAILE/PAIN; Start 05/26/17 at 17:57 Lisinopril (Zestril) 10 mg DAILY PO Last administered on 06/03/17 09:31; Admin Dose 10 MG; Start 05/26/17 at 17:57 Glucose (Glutose) 15 gm Q15M PRN PO DECREASED GLUCOSE; Start 05/26/17 at 17:57 Glucose (Glutose) 22.5 gm Q15M PRN PO DECREASED GLUCOSE; Start 05/26/17 at 17: 57 Dextrose (D50w Syringe) 25 ml Q15M PRN IV DECREASED GLUCOSE; Start 05/26/17 at 17:57 Dextrose (D50w Syringe) 50 ml Q15M PRN IV DECREASED GLUCOSE; Start 05/26/17 at 17:57 Glucagon (Glucagen) 1 mg Q15M PRN IM DECREASED GLUCOSE; Start 05/26/17 at 17:57 Glucose (Glutose) 15 gm Q15M PRN BUCCAL DECREASED GLUCOSE; Start 05/26/17 at 17 :57 Hydromorphone HCl (Dilaudid) 1 mg Q4H PRN IV PAIN Last administered on 05:59; Admin Dose 1 MG; Start 05/26/17 at 18:30 Docusate Sodium (Colace) 100 mg BID PO Last administered on 06/03/17 20:27; Admin Dose 100 MG; Start 05/29/17 at 21:00 Senna (Senokot) 1 tab HS PO Last administered on 06/03/17 20:27; Admin Dose 1 TAB; Start 05/29/17 at 21:00 Bisacodyl (Dulcolax Supp) 10 mg DAILY PRN [place] CONSTIPATION; Start 05/29/17 at 20 :30 Magnesium Hydroxide (Milk Of Mag) 30 ml BID PRN PO CONSTIPATION; Start at 20:30 Lactulose (Enulose) 20 gm DAILY PRN PO CONSTIPATION; Start 05/29/17 at 20:30 Lorazepam (Ativan) 1 mg HS PRN PO SLEEP Last administered on 06/03/17 20:27; Admin Dose 1 MG; Start 05/29/17 at 22:30 Metoprolol Succinate (Toprol Xl) 25 mg BID PO Last administered on 06/03/17 14: 19; Admin Dose 25 MG; Start 06/03/17 at 13:30 GALINA MONTERO Jun 04, 2017 09:41
[2017-06-04] MEDS: METOPROLOL (XL) 25 MG TAB PO SCH ×2 (09:52→10:18)
[2017-06-04] MEDS: LISINOPRIL 10 MG TAB PO SCH (10:18)
--- NOTE | 2017-06-04 13:19 | PN ---
Date/Time of Note Date/Time of Note DATE: 06/04/17 TIME: 13:16 Assessment/Plan VTE Prophylaxis VTE Prophylaxis Intervention: heparin Lines/Catheters IV Catheter Type (from [facility] [place] Saline Lock Urinary Cath still in place: No Assessment/Plan Problems: (1) Restless leg syndrome Status: Chronic Comment: Noted on on treatment stable (2) Coronary artery disease Status: Chronic Comment: Quiescent at this time. Please not have added beta-blockade. I do not necessarily think that these troponins represent true physiologic abnormalities to the time curve of the numbers. Regardless however, given how stoic this patient can be in the need to keep an open mind I will have cardiology evaluate the patient Qualifiers: Coronary Disease-Associated Artery/Lesion type: [place] artery [place] vs. transplanted heart: [place] heart Associated angina: without angina Qualified Code: I25.10 - Coronary artery disease involving [place] coronary artery of [place] heart without angina pectoris (3) Aftercare following surgery of the musculoskeletal system Status: Acute Comment: Continue rehabilitation. Please note he has such significant muscle atrophy will take some time to rebuild the musculature to the best that we can (4) Essential (primary) hypertension Status: Chronic Comment: Adequate control (5) Type 2 diabetes mellitus without complications Status: Chronic Comment: Excellent control Qualifiers: Diabetes mellitus superintendent terminal insulin use: without superintendent terminal use Qualified Code: E11.9 - Type 2 diabetes mellitus without complication, without long-term current use of insulin Subjective 24 Hr Interval Summary Free Text/Dictation She reports he had no further episodes of chest pain. He is working in rehabilitation. Constitutional: no complaints Respiratory: no complaints Cardiovascular: no complaints Gastrointestinal: no complaints Genitourinary: no complaints Musculoskeletal: no complaints Exam/Review of Systems Vital Signs Vitals Vital Signs Date Time Temp Pulse Resp B/P Pulse Ox O2 Delivery O2 Flow Rate FiO2 06/04/17 01:53 97.5 93 18 143/72 99 06/03/17 20:08 Room Air Intake and Output 06/03/17 06/03/17 06/04/17 15:00 23:00 07:00 Intake Total 800 ml 360 ml Output Total 180 ml 350 ml 200 ml Balance 620 ml 10 ml -200 ml Exam Constitutional: alert, oriented Respiratory: clear to auscultation, normal air movement Cardiovascular: nl pulses, regular rate and rhythm Gastrointestinal: nl liver, spleen, non-tender, soft Extremities: other Results Result Diagram: 05/31/17 0623 06/04/17 0622 Results 24 hrs Laboratory Tests Test 06/03/17 14:10 06/03/17 16:50 06/04/17 06:22 06/04/17 08:01 Troponin I 0.637 *H 0.275 *H Bedside Glucose 164 129 Sodium Level 143 Potassium Level 4.8 Chloride Level 100 Carbon Dioxide Level 30 Anion Gap 18 H Blood Urea Nitrogen 18 Creatinine 0.65 Glucose Level 117 Calcium Level 9.7 Magnesium Level 2.2 Test 06/04/17 12:18 Bedside Glucose 116 Medications Medications Current Medications Acetaminophen/ Hydrocodone Bitart ([place] (5/325)) 1 tab Q4H PRN PO PAIN LEVEL 1 -5 Last administered on 06/02/17 20:26; Admin Dose 1 TAB; Start 05/26/17 at 17: 57 Acetaminophen/ Hydrocodone Bitart ([place] (5/325)) 2 tab Q4H PRN PO PAIN LEVEL 6 -10 Last administered on 06/03/17 11:10; Admin Dose 2 TAB; Start 05/26/17 at 17: 57 Ondansetron HCl (Zofran Inj) 4 mg Q6H PRN IV NAUSEA AND/OR VOMITING; Start at 17:57 Acetaminophen (Tylenol Tab) 650 mg Q4H PRN PO TEMP GREATER THAN 101F/HAILE/PAIN; Start 05/26/17 at 17:57 Lisinopril (Zestril) 10 mg DAILY PO Last administered on 06/04/17 10:18; Admin Dose 10 MG; Start 05/26/17 at 17:57 Glucose (Glutose) 15 gm Q15M PRN PO DECREASED GLUCOSE; Start 05/26/17 at 17:57 Glucose (Glutose) 22.5 gm Q15M PRN PO DECREASED GLUCOSE; Start 05/26/17 at 17: 57 Dextrose (D50w Syringe) 25 ml Q15M PRN IV DECREASED GLUCOSE; Start 05/26/17 at 17:57 Dextrose (D50w Syringe) 50 ml Q15M PRN IV DECREASED GLUCOSE; Start 05/26/17 at 17:57 Glucagon (Glucagen) 1 mg Q15M PRN IM DECREASED GLUCOSE; Start 05/26/17 at 17:57 Glucose (Glutose) 15 gm Q15M PRN BUCCAL DECREASED GLUCOSE; Start 05/26/17 at 17 :57 Hydromorphone HCl (Dilaudid) 1 mg Q4H PRN IV PAIN Last administered on 10:16; Admin Dose 1 MG; Start 05/26/17 at 18:30 Docusate Sodium (Colace) 100 mg BID PO Last administered on 06/04/17 08:52; Admin Dose 100 MG; Start 05/29/17 at 21:00 Bisacodyl (Dulcolax Supp) 10 mg DAILY PRN [place] CONSTIPATION; Start 05/29/17 at 20 :30 Magnesium Hydroxide (Milk Of Mag) 30 ml BID PRN PO CONSTIPATION; Start at 20:30 Lactulose (Enulose) 20 gm DAILY PRN PO CONSTIPATION; Start 05/29/17 at 20:30 Lorazepam (Ativan) 1 mg HS PRN PO SLEEP Last administered on 06/03/17 20:27; Admin Dose 1 MG; Start 05/29/17 at 22:30 Senna (Senokot) 2 tab HS PO ; Start 06/04/17 at 21:00 Metoprolol Succinate (Toprol Xl) 50 mg BID PO ; Start 06/04/17 at 21:00; Status NOREEN PATTERSON MD Jun 04, 2017 13:19
[2017-06-04] MEDS: ASPIRIN 81 MG TAB PO SCH (18:29)
[2017-06-04] MEDS: PRAMIPEXOLE 0.125 MG TAB PO SCH (18:29)
[2017-06-04] MEDS: CLOPIDOGREL 75 MG TAB PO SCH (18:31)
[2017-06-04] MEDS: ISOSORBIDE MONONITRATE(SR)30 MG TAB PO SCH (19:00)
[2017-06-04] MEDS ORDERED: BISACODYL (EC) 5 MG TAB PO ONE (19:00)
[2017-06-04 20:00] VITALS: BP 129/68; RESP 18
[2017-06-04] MEDS: SENNA TAB PO SCH (20:44)
[2017-06-04] MEDS: METOPROLOL (XL) 50 MG TAB PO SCH (20:58)
[2017-06-05] VITALS (8 sets, daily range): BP systolic 84–125; BP diastolic 58–75; RESP 18–20
[2017-06-05] MEDS: HYDROmorphONE 1 MG/ML SYG IV PRN ×6 (01:11→21:13)
[2017-06-05] MEDS: LACTULOSE 30ML CUP PO PRN (06:15)
[2017-06-05] MEDS: ACCU-CHEK XX SCH ×2 (07:05→17:47)
[2017-06-05] MEDS: INSULIN ASPART [NOVOLOG] 3 ML PEN SC SCH ×2 (07:05→17:05)
[2017-06-05] MEDS: metFORMIN 500 MG TAB PO SCH ×2 (08:25→17:47)
[2017-06-05] MEDS: CLOPIDOGREL 75 MG TAB PO SCH (08:26)
[2017-06-05] MEDS: ASPIRIN 81 MG TAB PO SCH (08:26)
[2017-06-05] MEDS: HYDROCODONE/APAP (5/325) TAB PO PRN ×2 (08:28→15:06)
[2017-06-05] MEDS: ISOSORBIDE MONONITRATE(SR)30 MG TAB PO SCH (09:00)
[2017-06-05] MEDS: LISINOPRIL 10 MG TAB PO SCH (09:00)
[2017-06-05] MEDS: METOPROLOL (XL) 50 MG TAB PO SCH ×2 (09:00→20:44)
--- NOTE | 2017-06-05 09:50 | CONS ---
Date/Time of Note Date/Time of Note DATE: 06/05/17 TIME: 09:47 Assessment/Plan Assessment/Plan Additional Assessment/Plan 1. Hypotention - BP on low side - will hold am meds and give NS bolus. 2. Coronary artery disease status post stenting- no active CP now - will Rx medically for now 3. Essential hypertension- n low side now, ? dehydrated 4. Diabetes mellitus- on meds, keep euglycemic 5. Anemia- H/H stable Consultation Date/Type/Reason Admit Date/Time May 26, 2017 at 17:11 Initial Consult Date 24 HR Interval Summary Free Text/Dictation NO acte chane - BP on low side - Rx with NS bolus now - pt ate, can not do [place] today ROS: No fever, no chills, no nausea, no vomiting, no diarrhea/constipation No recent weight changes No chest pain, no PND, no orthopnea No dizziness, blurred vision No thirst, no heat or cold intolerance Exam/Review of Systems Vital Signs Vitals Vital Signs Date Time Temp Pulse Resp B/P Pulse Ox O2 Delivery O2 Flow Rate FiO2 06/04/17 20:00 97.7 97 18 129/68 99 06/03/17 20:08 Room Air Intake and Output 06/04/17 06/04/17 06/05/17 14:59 22:59 06:59 Intake Total 500 ml Output Total 250 ml 350 ml Balance 250 ml -350 ml Exam General: WN/WD/NAD, AOx 3 HEENT: Unicetric/atraumatic/EOMI ( follow commands) NECK: JVD elevated, no thyromegaly Lymph: no lymphadenopathy HEART: regular with no S3, II/ systolic murmur at apex LUNGS: Coarse sounds ABD: soft, NT, ND, +BS : Intact Neuro: non focal SKIN: chronic changes EXT: trace edema Results Result Diagram: 06/04/17 06 Results 24 hrs Laboratory Tests Test 06/04/17 12:18 06/04/17 17:32 06/05/17 07:52 06/05/17 07:53 Bedside Glucose 116 181 163 190 Medications Medications Current Medications Acetaminophen/ Hydrocodone Bitart ([place] (5/325)) 1 tab Q4H PRN PO PAIN LEVEL 1 -5 Last administered on 06/02/17t 20:26; Admin Dose 1 TAB; Start 05/26/17 at 17: 57 Acetaminophen/ Hydrocodone Bitart ([place] (5/325)) 2 tab Q4H PRN PO PAIN LEVEL 6 -10 Last administered on 06/05/17 08:28; Admin Dose 2 TAB; Start 05/26/17 at 17: 57 Ondansetron HCl (Zofran Inj) 4 mg Q6H PRN IV NAUSEA AND/OR VOMITING; Start at 17:57 Acetaminophen (Tylenol Tab) 650 mg Q4H PRN PO TEMP GREATER THAN 101F/HAILE/PAIN; Start 05/26/17 at 17:57 Lisinopril (Zestril) 10 mg DAILY PO Last administered on 06/04/17 10:18; Admin Dose 10 MG; Start 05/26/17 at 17:57 Glucose (Glutose) 15 gm Q15M PRN PO DECREASED GLUCOSE; Start 05/26/17 at 17:57 Glucose (Glutose) 22.5 gm Q15M PRN PO DECREASED GLUCOSE; Start 05/26/17 at 17: 57 Dextrose (D50w Syringe) 25 ml Q15M PRN IV DECREASED GLUCOSE; Start 05/26/17 at 17:57 Dextrose (D50w Syringe) 50 ml Q15M PRN IV DECREASED GLUCOSE; Start 05/26/17 at 17:57 Glucagon (Glucagen) 1 mg Q15M PRN IM DECREASED GLUCOSE; Start 05/26/17 at 17:57 Glucose (Glutose) 15 gm Q15M PRN BUCCAL DECREASED GLUCOSE; Start 05/26/17 at 17 :57 Hydromorphone HCl (Dilaudid) 1 mg Q4H PRN IV PAIN Last administered on 09:40; Admin Dose 1 MG; Start 05/26/17 at 18:30 Docusate Sodium (Colace) 100 mg BID PO Last administered on 06/04/17 20:56; Admin Dose 100 MG; Start 05/29/17 at 21:00 Bisacodyl (Dulcolax Supp) 10 mg DAILY PRN [place] CONSTIPATION; Start 05/29/17 at 20 :30 Magnesium Hydroxide (Milk Of Mag) 30 ml BID PRN PO CONSTIPATION; Start at 20:30 Lactulose (Enulose) 20 gm DAILY PRN PO CONSTIPATION Last administered on 06:15; Admin Dose 20 GM; Start 05/29/17 at 20:30 Lorazepam (Ativan) 1 mg HS PRN PO SLEEP Last administered on 06/03/17 20:27; Admin Dose 1 MG; Start 05/29/17 at 22:30 Senna (Senokot) 2 tab HS PO Last administered on 06/04/17 20:44; Admin Dose 2 TAB; Start 06/04/17 at 21:00 Metoprolol Succinate (Toprol Xl) 50 mg BID PO ; Start 06/04/17 at 21:00 Isosorbide Mononitrate (Imdur) 30 mg DAILY PO Last administered on 06/04/17 19: 00; Admin Dose 30 MG; Start 06/04/17 at 16:30 Aspirin (Aspirin) 81 mg DAILY PO Last administered on 06/05/17 08:26; Admin Dose 81 MG; Start 06/04/17 at 15:00 Clopidogrel Bisulfate (plaVIX) 75 mg DAILY PO Last administered on 06/05/17 08: 26; Admin Dose 75 MG; Start 06/04/17 at 15:00 YARITZA LAYNE MD Jun 05, 2017 09:49
[2017-06-05] MEDS ORDERED: SODIUM CHLORIDE 0.45% 500 ML BAG IV* ONE (12:30)
--- NOTE | 2017-06-05 13:32 | CONS ---
Date/Time of Note Date/Time of Note DATE: 06/05/17 TIME: 13:31 Consult Date/Type/Reason Admit Date/Time May 26, 2017 at 17:11 Subjective Had chest pain over weekend. BP still running low Objective Vital Signs Date Time Temp Pulse Resp B/P Pulse Ox O2 Delivery O2 Flow Rate FiO2 06/05/17 07:30 97.8 116 18 84/61 98 06/03/17 20:08 Room Air Intake and Output 06/04/17 06/04/17 06/05/17 15:00 23:00 07:00 Intake Total 500 ml Output Total 250 ml 350 ml Balance 250 ml -350 ml INTERDISCIPLINARY TEAM CONFERENCE BOWEL- Cont BLADDER-Cont SKIN- intact OT- DRESSING-cga BATHING-cga TOILETING-cga PT- BED MOBILITY-cga TRANSFERS-cga AMBULATION-cga 40 feet A/P- Interdisciplinary team conference held today. Please see interdisciplinary sheet. Working toward d.c. on 06/09 with post discharge follow up of physical therapy, occupational Results/Medications Result Diagram: 06/04/17 0622 Results 24 hrs Laboratory Tests Test 06/04/17 17:32 06/05/17 07:52 06/05/17 07:53 Bedside Glucose 181 163 190 Medications Current Medications Acetaminophen/ Hydrocodone Bitart ([place] (5/325)) 1 tab Q4H PRN PO PAIN LEVEL 1 -5 Last administered on 06/02/17 20:26; Admin Dose 1 TAB; Start 05/26/17 at 17: 57 Acetaminophen/ Hydrocodone Bitart ([place] (5/325)) 2 tab Q4H PRN PO PAIN LEVEL 6 -10 Last administered on 06/05/17 08:28; Admin Dose 2 TAB; Start 05/26/17 at 17: 57 Ondansetron HCl (Zofran Inj) 4 mg Q6H PRN IV NAUSEA AND/OR VOMITING; Start at 17:57 Acetaminophen (Tylenol Tab) 650 mg Q4H PRN PO TEMP GREATER THAN 101F/HAILE/PAIN; Start 05/26/17 at 17:57 Lisinopril (Zestril) 10 mg DAILY PO Last administered on 06/04/17 10:18; Admin Dose 10 MG; Start 05/26/17 at 17:57 Glucose (Glutose) 15 gm Q15M PRN PO DECREASED GLUCOSE; Start 05/26/17 at 17:57 Glucose (Glutose) 22.5 gm Q15M PRN PO DECREASED GLUCOSE; Start 05/26/17 at 17: 57 Dextrose (D50w Syringe) 25 ml Q15M PRN IV DECREASED GLUCOSE; Start 05/26/17 at 17:57 Dextrose (D50w Syringe) 50 ml Q15M PRN IV DECREASED GLUCOSE; Start 05/26/17 at 17:57 Glucagon (Glucagen) 1 mg Q15M PRN IM DECREASED GLUCOSE; Start 05/26/17 at 17:57 Glucose (Glutose) 15 gm Q15M PRN BUCCAL DECREASED GLUCOSE; Start 05/26/17 at 17 :57 Hydromorphone HCl (Dilaudid) 1 mg Q4H PRN IV PAIN Last administered on 12:30; Admin Dose 1 MG; Start 05/26/17 at 18:30 Docusate Sodium (Colace) 100 mg BID PO Last administered on 06/04/17 20:56; Admin Dose 100 MG; Start 05/29/17 at 21:00 Bisacodyl (Dulcolax Supp) 10 mg DAILY PRN [place] CONSTIPATION; Start 05/29/17 at 20 :30 Magnesium Hydroxide (Milk Of Mag) 30 ml BID PRN PO CONSTIPATION; Start at 20:30 Lactulose (Enulose) 20 gm DAILY PRN PO CONSTIPATION Last administered on 06:15; Admin Dose 20 GM; Start 05/29/17 at 20:30 Lorazepam (Ativan) 1 mg HS PRN PO SLEEP Last administered on 06/03/17 20:27; Admin Dose 1 MG; Start 05/29/17 at 22:30 Senna (Senokot) 2 tab HS PO Last administered on 06/04/17 20:44; Admin Dose 2 TAB; Start 06/04/17 at 21:00 Metoprolol Succinate (Toprol Xl) 50 mg BID PO ; Start 06/04/17 at 21:00 Isosorbide Mononitrate (Imdur) 30 mg DAILY PO Last administered on 06/04/17 19: 00; Admin Dose 30 MG; Start 06/04/17 at 16:30 Aspirin (Aspirin) 81 mg DAILY PO Last administered on 06/05/17 08:26; Admin Dose 81 MG; Start 06/04/17 at 15:00 Clopidogrel Bisulfate (plaVIX) 75 mg DAILY PO Last administered on 06/05/17 08: 26; Admin Dose 75 MG; Start 06/04/17 at 15:00 CHANTELLE YO MD Jun 05, 2017 13:31
--- NOTE | 2017-06-05 17:57 | PN ---
Date/Time of Note Date/Time of Note DATE: 06/05/17 TIME: 17:54 Assessment/Plan VTE Prophylaxis VTE Prophylaxis Intervention: ambulation, SCD's Lines/Catheters IV Catheter Type (from Nrs): Saline Lock Urinary Cath still in place: No Assessment/Plan Problems: (1) Type 2 diabetes mellitus without complications Status: Chronic Comment: Fair glycemic control. Cont. metformin bid. Qualifiers: Diabetes mellitus exterminator helper insulin use: without exterminator helper use Qualified Code: E11.9 - Type 2 diabetes mellitus without complication, without long-term current use of insulin (2) Essential (primary) hypertension Status: Chronic Comment: BP on low-side this am but pt. asymptomatic. Cont. current BP therapy. (3) Restless leg syndrome Status: Chronic Comment: Mirapex effective. Will cont. (4) Lumbar spinal stenosis Status: Resolved Comment: Cont. rehab. Subjective 24 Hr Interval Summary Constitutional: improved, no complaints Respiratory: no complaints Cardiovascular: no complaints Gastrointestinal: no complaints Genitourinary: no complaints Musculoskeletal: back pain (mild but there when walking he attributes to post- surgical), bone/joint pain (anterior thigh pain when walking he attributes to underuse.) Neurologic: no complaints Exam/Review of Systems Vital Signs Vitals VS - Last 72 Hours, by Label Date Time Temp Pulse Resp B/P Pulse Ox O2 Delivery O2 Flow Rate FiO2 06/05/17 17:00 125/75 06/05/17 14:00 97.8 101 20 107/60 94 06/05/17 07:30 97.8 116 18 84/61 98 06/04/17 20:00 97.7 97 18 129/68 99 06/04/17 01:53 97.5 93 18 143/72 99 06/03/17 20:08 98.0 80 18 106/64 99 Room Air 06/03/17 15:04 98.3 105 18 122/78 96 06/03/17 14:21 106 18 122/57 97 Room Air 06/03/17 07:32 98.4 88 18 120/68 96 06/03/17 02:00 98.5 90 18 138/78 96 06/02/17 20:00 98.3 90 18 144/65 97 Vital Signs Date Time Temp Pulse Resp B/P Pulse Ox O2 Delivery O2 Flow Rate FiO2 06/05/17 17:00 125/75 06/05/17 14:00 97.8 101 20 94 06/03/17 20:08 Room Air Intake and Output 06/04/17 06/04/17 06/05/17 15:00 23:00 07:00 Intake Total 500 ml Output Total 250 ml 350 ml Balance 250 ml -350 ml Exam Constitutional: alert, oriented, well developed Psych: nl mood/affect, no complaints Respiratory: clear to auscultation, normal air movement Cardiovascular: nl pulses, regular rate and rhythm, No edema, No murmurs/extra sounds, No rub Gastrointestinal: bowel sounds, nl liver, spleen, non-tender, soft, No mass, No rebound or guarding Musculoskeletal: nl extremities to inspection Extremities: normal pulses, No clubbing, No cyanosis, No edema Neurological: 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 OFFICER II-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, nl mental status, nl speech, nl strength Additional Comments Bedside Glucose - 72 Hours Test 06/03/17 07:58 06/03/17 12:02 06/03/17 16:50 06/04/17 08:01 Bedside Glucose 130mg/dL (70-220) 125mg/dL (70-220) 164mg/dL (70-220) 129mg/dL (70-220) Test 06/04/17 12:18 06/04/17 17:32 06/05/17 07:52 06/05/17 07:53 Bedside Glucose 116mg/dL (70-220) 181mg/dL (70-220) 163mg/dL (70-220) 190mg/dL (70-220) Test 06/05/17 17:41 Bedside Glucose 144mg/dL (70-220) Results Result Diagram: 06/04/17 0622 Results 24 hrs Laboratory Tests Test 06/05/17 07:52 06/05/17 07:53 06/05/17 17:41 Bedside Glucose 163 190 144 Medications Medications Current Medications Acetaminophen/ Hydrocodone Bitart ([place] (5/325)) 1 tab Q4H PRN PO PAIN LEVEL 1 -5 Last administered on 06/02/17 20:26; Admin Dose 1 TAB; Start 05/26/17 at 17: 57 Acetaminophen/ Hydrocodone Bitart ([place] (5/325)) 2 tab Q4H PRN PO PAIN LEVEL 6 -10 Last administered on 06/05/17 15:06; Admin Dose 2 TAB; Start 05/26/17 at 17: 57 Ondansetron HCl (Zofran Inj) 4 mg Q6H PRN IV NAUSEA AND/OR VOMITING; Start at 17:57 Acetaminophen (Tylenol Tab) 650 mg Q4H PRN PO TEMP GREATER THAN 101F/HAILE/PAIN; Start 05/26/17 at 17:57 Lisinopril (Zestril) 10 mg DAILY PO Last administered on 06/04/17 10:18; Admin Dose 10 MG; Start 05/26/17 at 17:57 Glucose (Glutose) 15 gm Q15M PRN PO DECREASED GLUCOSE; Start 05/26/17 at 17:57 Glucose (Glutose) 22.5 gm Q15M PRN PO DECREASED GLUCOSE; Start 05/26/17 at 17: 57 Dextrose (D50w Syringe) 25 ml Q15M PRN IV DECREASED GLUCOSE; Start 05/26/17 at 17:57 Dextrose (D50w Syringe) 50 ml Q15M PRN IV DECREASED GLUCOSE; Start 05/26/17 at 17:57 Glucagon (Glucagen) 1 mg Q15M PRN IM DECREASED GLUCOSE; Start 05/26/17 at 17:57 Glucose (Glutose) 15 gm Q15M PRN BUCCAL DECREASED GLUCOSE; Start 05/26/17 at 17 :57 Hydromorphone HCl (Dilaudid) 1 mg Q4H PRN IV PAIN Last administered on 16:50; Admin Dose 1 MG; Start 05/26/17 at 18:30 Docusate Sodium (Colace) 100 mg BID PO Last administered on 06/04/17 20:56; Admin Dose 100 MG; Start 05/29/17 at 21:00 Bisacodyl (Dulcolax Supp) 10 mg DAILY PRN [place] CONSTIPATION; Start 05/29/17 at 20 :30 Magnesium Hydroxide (Milk Of Mag) 30 ml BID PRN PO CONSTIPATION; Start at 20:30 Lactulose (Enulose) 20 gm DAILY PRN PO CONSTIPATION Last administered on 06:15; Admin Dose 20 GM; Start 05/29/17 at 20:30 Lorazepam (Ativan) 1 mg HS PRN PO SLEEP Last administered on 06/03/17 20:27; Admin Dose 1 MG; Start 05/29/17 at 22:30 Senna (Senokot) 2 tab HS PO Last administered on 06/04/17 20:44; Admin Dose 2 TAB; Start 06/04/17 at 21:00 Metoprolol Succinate (Toprol Xl) 50 mg BID PO ; Start 06/04/17 at 21:00 Isosorbide Mononitrate (Imdur) 30 mg DAILY PO Last administered on 06/04/17 19: 00; Admin Dose 30 MG; Start 06/04/17 at 16:30 Aspirin (Aspirin) 81 mg DAILY PO Last administered on 06/05/17 08:26; Admin Dose 81 MG; Start 06/04/17 at 15:00 Clopidogrel Bisulfate (plaVIX) 75 mg DAILY PO Last administered on 06/05/17 08: 26; Admin Dose 75 MG; Start 06/04/17 at 15:00 SAMANTA FRAIRE MD Jun 05, 2017 17:57
[2017-06-05] MEDS: PRAMIPEXOLE 0.125 MG TAB PO SCH (19:41)
[2017-06-05] MEDS: SENNA TAB PO SCH (20:47)
[2017-06-05] MEDS: DOCUSATE SODIUM 100 MG CAP PO SCH (20:47)
[2017-06-05] MEDS: LORAZEPAM 1 MG TAB PO PRN (23:15)
[2017-06-06 02:00] VITALS: BP 109/62; RESP 18
[2017-06-06] MEDS: HYDROmorphONE 1 MG/ML SYG IV PRN ×6 (04:37→22:47)
[2017-06-06 06:33] LABS: BASOPHIL # 0.1 10^3/ul (0.0-0.1); BASOPHILS % 0.7 % (0.0-2.0); EOSINOPHILS # 0.4 10^3/ul (0.0-0.5); EOSINOPHILS % 3.5 % (0.0-7.0); HEMATOCRIT 30.5 % (42.0-52.0); HEMOGLOBIN 10.6 g/dl (14.0-18.0); LYMPHOCYTES # 1.9 10^3/ul (0.8-2.9); LYMPHOCYTES % 15.6 % (15.0-51.0); MEAN CORPUSCULAR HEMOGLOBIN 34.4 pg (29.0-33.0); MEAN CORPUSCULAR HGB CONC 34.8 g/dl (32.0-37.0); MEAN PLATELET VOLUME 9.4 fl (7.4-10.4); MONOCYTE # 0.7 10^3/ul (0.3-0.9); MONOCYTES % 5.9 % (0.0-11.0); NEUTROPHIL # 8.9 10^3/ul (1.6-7.5); NEUTROPHILS % 73.5 % (39.0-77.0); PLATELET COUNT 636 10^3/UL (140-415); RED BLOOD COUNT 3.08 10^6/ul (4.70-6.10); WHITE BLOOD COUNT 12.1 10^3/ul (4.8-10.8)
[2017-06-06 06:58] LABS: ALBUMIN 3.4 g/dl (3.3-4.9); ALBUMIN/GLOBULIN RATIO 1.25; BILIRUBIN,INDIRECT 0.1 mg/dl (0-1.1); BILIRUBIN,TOTAL 0.1 mg/dl (0.2-1.3); CALCIUM 9.2 mg/dl (8.4-10.2); TOTAL PROTEIN 6.1 g/dl (6.1-8.1)
[2017-06-06] MEDS: INSULIN ASPART [NOVOLOG] 3 ML PEN SC SCH ×2 (07:05→17:05)
[2017-06-06] MEDS: ACCU-CHEK XX SCH ×2 (07:05→17:55)
[2017-06-06 07:07] LABS: POTASSIUM 5.5 mmol/L (3.5-5.1)
[2017-06-06 07:17] LABS: CREATININE 0.81 mg/dl (0.61-1.24)
[2017-06-06] MEDS: HYDROCODONE/APAP (5/325) TAB PO PRN ×2 (07:45→16:40)
[2017-06-06 08:07] VITALS: BP 143/84; RESP 18
[2017-06-06] MEDS: CLOPIDOGREL 75 MG TAB PO SCH (08:29)
[2017-06-06] MEDS: metFORMIN 500 MG TAB PO SCH ×2 (08:29→17:56)
[2017-06-06] MEDS: ASPIRIN 81 MG TAB PO SCH (08:29)
[2017-06-06] MEDS: ISOSORBIDE MONONITRATE(SR)30 MG TAB PO SCH (09:00)
[2017-06-06] MEDS: METOPROLOL (XL) 50 MG TAB PO SCH ×2 (09:00→20:36)
[2017-06-06] MEDS: LISINOPRIL 10 MG TAB PO SCH (09:00)
[2017-06-06] MEDS: DOCUSATE SODIUM 100 MG CAP PO SCH ×2 (09:26→20:35)
--- NOTE | 2017-06-06 09:42 | CONS ---
Date/Time of Note Date/Time of Note DATE: 06/06/17 TIME: 09:39 Assessment/Plan Assessment/Plan Additional Assessment/Plan 1. Hypotention - BP on low side - will hold am meds and give NS bolus. RESPONDED WELL< BM much better 2. Coronary artery disease status post stenting- no active CP now - will Rx medically for now - STRESS TEST SCHEDULE, NUC CAMERA down 2 days - will facilitate once camera is available. 3. Essential hypertension- n low side now, ? dehydrated 4. Diabetes mellitus- on meds, keep euglycemic 5. Anemia- H/H stable 6. Rehab - better now, con't to monitor Consultation Date/Type/Reason Admit Date/Time May 26, 2017 at 17:11 24 HR Interval Summary Free Text/Dictation STRESS TEST SCHEDULE, NUC CAMERA down 2 days - will facilitate once camera is available. No CP now, BP better ROS: No fever, no chills, no nausea, no vomiting, no diarrhea/constipation No recent weight changes No chest pain, no PND, no orthopnea No dizziness, blurred vision No thirst, no heat or cold intolerance Exam/Review of Systems Vital Signs Vitals Vital Signs Date Time Temp Pulse Resp B/P Pulse Ox O2 Delivery O2 Flow Rate FiO2 06/06/17 08:07 98.2 107 18 143/84 98 06/03/17 20:08 Room Air Intake and Output 06/05/17 06/05/17 06/06/17 15:00 23:00 07:00 Intake Total 500 ml 500 ml Output Total 450 ml Balance 500 ml 50 ml Exam General: WN/WD/NAD, AOx 3 HEENT: Unicetric/atraumatic/EOMI (follow commands) NECK: JVD elevated, no thyromegaly Lymph: no lymphadenopathy HEART: regular with no S3, II/ systolic murmur at apex LUNGS: Coarse sounds ABD: soft, NT, ND, +BS : Intact Neuro: non focal SKIN: chronic changes EXT: trace edema Results Result Diagram: 06/06/17 0606 06/06/17 0606 Results 24 hrs Laboratory Tests Test 06/05/17 17:41 06/06/17 06:06 06/06/17 07:54 Bedside Glucose 144 130 White Blood Count 12.1 #H Red Blood Count 3.08 L Hemoglobin 10.6 L Hematocrit 30.5 L Mean Corpuscular Volume 99.0 Mean Corpuscular Hemoglobin 34.4 H Mean Corpuscular Hemoglobin Concent 34.8 Red Cell Distribution Width 14.0 Platelet Count 636 #H Mean Platelet Volume 9.4 Neutrophils % 73.5 Lymphocytes % 15.6 Monocytes % 5.9 Eosinophils % 3.5 Basophils % 0.7 Nucleated Red Blood Cells % 0.0 Neutrophils # 8.9 H Lymphocytes # 1.9 Monocytes # 0.7 Eosinophils # 0.4 Basophils # 0.1 Nucleated Red Blood Cells # 0.0 Sodium Level 140 Potassium Level 5.5 H Chloride Level 100 Carbon Dioxide Level 30 Anion Gap 16 Blood Urea Nitrogen 18 Creatinine 0.81 Glucose Level 119 Calcium Level 9.2 Total Bilirubin 0.1 L Direct Bilirubin 0.00 Indirect Bilirubin 0.1 Aspartate Amino Transf (AST/SGOT) 17 Alanine Aminotransferase (ALT/SGPT) 24 Alkaline Phosphatase 98 Total Protein 6.1 Albumin 3.4 Globulin 2.70 Albumin/Globulin Ratio 1.25 Medications Medications Current Medications Acetaminophen/ Hydrocodone Bitart ([place] (5/325)) 1 tab Q4H PRN PO PAIN LEVEL 1 -5 Last administered on 06/02/17 20:26; Admin Dose 1 TAB; Start 05/26/17 at 17: 57 Acetaminophen/ Hydrocodone Bitart ([place] (5/325)) 2 tab Q4H PRN PO PAIN LEVEL 6 -10 Last administered on 06/06/17 07:45; Admin Dose 2 TAB; Start 05/26/17 at 17: 57 Ondansetron HCl (Zofran Inj) 4 mg Q6H PRN IV NAUSEA AND/OR VOMITING; Start at 17:57 Acetaminophen (Tylenol Tab) 650 mg Q4H PRN PO TEMP GREATER THAN 101F/HAILE/PAIN; Start 05/26/17 at 17:57 Lisinopril (Zestril) 10 mg DAILY PO Last administered on 06/04/17 10:18; Admin Dose 10 MG; Start 05/26/17 at 17:57 Glucose (Glutose) 15 gm Q15M PRN PO DECREASED GLUCOSE; Start 05/26/17 at 17:57 Glucose (Glutose) 22.5 gm Q15M PRN PO DECREASED GLUCOSE; Start 05/26/17 at 17: 57 Dextrose (D50w Syringe) 25 ml Q15M PRN IV DECREASED GLUCOSE; Start 05/26/17 at 17:57 Dextrose (D50w Syringe) 50 ml Q15M PRN IV DECREASED GLUCOSE; Start 05/26/17 at 17:57 Glucagon (Glucagen) 1 mg Q15M PRN IM DECREASED GLUCOSE; Start 05/26/17 at 17:57 Glucose (Glutose) 15 gm Q15M PRN BUCCAL DECREASED GLUCOSE; Start 05/26/17 at 17 :57 Hydromorphone HCl (Dilaudid) 1 mg Q4H PRN IV PAIN Last administered on 04:37; Admin Dose 1 MG; Start 05/26/17 at 18:30 Docusate Sodium (Colace) 100 mg BID PO Last administered on 06/05/17 20:47; Admin Dose 100 MG; Start 05/29/17 at 21:00 Bisacodyl (Dulcolax Supp) 10 mg DAILY PRN [place] CONSTIPATION; Start 05/29/17 at 20 :30 Magnesium Hydroxide (Milk Of Mag) 30 ml BID PRN PO CONSTIPATION; Start at 20:30 Lactulose (Enulose) 20 gm DAILY PRN PO CONSTIPATION Last administered on 06:15; Admin Dose 20 GM; Start 05/29/17 at 20:30 Lorazepam (Ativan) 1 mg HS PRN PO SLEEP Last administered on 06/05/17 23:15; Admin Dose 1 MG; Start 05/29/17 at 22:30 Senna (Senokot) 2 tab HS PO Last administered on 06/05/17 20:47; Admin Dose 2 TAB; Start 06/04/17 at 21:00 Metoprolol Succinate (Toprol Xl) 50 mg BID PO ; Start 06/04/17 at 21:00 Isosorbide Mononitrate (Imdur) 30 mg DAILY PO Last administered on 06/04/17 19: 00; Admin Dose 30 MG; Start 06/04/17 at 16:30 Aspirin (Aspirin) 81 mg DAILY PO Last administered on 06/06/17 08:29; Admin Dose 81 MG; Start 06/04/17 at 15:00 Clopidogrel Bisulfate (plaVIX) 75 mg DAILY PO Last administered on 06/06/17 08: 29; Admin Dose 75 MG; Start 06/04/17 at 15:00 YARITZA LAYNE MD Jun 06, 2017 09:42
--- NOTE | 2017-06-06 13:05 | CONS ---
Date/Time of Note Date/Time of Note DATE: 06/06/17 TIME: 13:05 Consult Date/Type/Reason Admit Date/Time May 26, 2017 at 17:11 Subjective No new complaints Objective Standby assist ambulation Vital Signs Date Time Temp Pulse Resp B/P Pulse Ox O2 Delivery O2 Flow Rate FiO2 06/06/17 08:07 98.2 107 18 143/84 98 06/03/17 20:08 Room Air Intake and Output 06/05/17 06/05/17 06/06/17 15:00 23:00 07:00 Intake Total 500 ml 500 ml Output Total 450 ml Balance 500 ml 50 ml Results/Medications Result Diagram: 06/06/17 0606 06/06/17 0606 Results 24 hrs Laboratory Tests Test 06/05/17 17:41 06/06/17 06:06 06/06/17 07:54 Bedside Glucose 144 130 White Blood Count 12.1 #H Red Blood Count 3.08 L Hemoglobin 10.6 L Hematocrit 30.5 L Mean Corpuscular Volume 99.0 Mean Corpuscular Hemoglobin 34.4 H Mean Corpuscular Hemoglobin Concent 34.8 Red Cell Distribution Width 14.0 Platelet Count 636 #H Mean Platelet Volume 9.4 Neutrophils % 73.5 Lymphocytes % 15.6 Monocytes % 5.9 Eosinophils % 3.5 Basophils % 0.7 Nucleated Red Blood Cells % 0.0 Neutrophils # 8.9 H Lymphocytes # 1.9 Monocytes # 0.7 Eosinophils # 0.4 Basophils # 0.1 Nucleated Red Blood Cells # 0.0 Sodium Level 140 Potassium Level 5.5 H Chloride Level 100 Carbon Dioxide Level 30 Anion Gap 16 Blood Urea Nitrogen 18 Creatinine 0.81 Glucose Level 119 Calcium Level 9.2 Total Bilirubin 0.1 L Direct Bilirubin 0.00 Indirect Bilirubin 0.1 Aspartate Amino Transf (AST/SGOT) 17 Alanine Aminotransferase (ALT/SGPT) 24 Alkaline Phosphatase 98 Total Protein 6.1 Albumin 3.4 Globulin 2.70 Albumin/Globulin Ratio 1.25 Medications Current Medications Acetaminophen/ Hydrocodone Bitart ([place] (5/325)) 1 tab Q4H PRN PO PAIN LEVEL 1 -5 Last administered on 06/02/17t 20:26; Admin Dose 1 TAB; Start 05/26/17 at 17: 57 Acetaminophen/ Hydrocodone Bitart ([place] (5/325)) 2 tab Q4H PRN PO PAIN LEVEL 6 -10 Last administered on 06/06/17 07:45; Admin Dose 2 TAB; Start 05/26/17 at 17: 57 Ondansetron HCl (Zofran Inj) 4 mg Q6H PRN IV NAUSEA AND/OR VOMITING; Start at 17:57 Acetaminophen (Tylenol Tab) 650 mg Q4H PRN PO TEMP GREATER THAN 101F/HAILE/PAIN; Start 05/26/17 at 17:57 Lisinopril (Zestril) 10 mg DAILY PO Last administered on 06/04/17 10:18; Admin Dose 10 MG; Start 05/26/17 at 17:57 Glucose (Glutose) 15 gm Q15M PRN PO DECREASED GLUCOSE; Start 05/26/17 at 17:57 Glucose (Glutose) 22.5 gm Q15M PRN PO DECREASED GLUCOSE; Start 05/26/17 at 17: 57 Dextrose (D50w Syringe) 25 ml Q15M PRN IV DECREASED GLUCOSE; Start 05/26/17 at 17:57 Dextrose (D50w Syringe) 50 ml Q15M PRN IV DECREASED GLUCOSE; Start 05/26/17 at 17:57 Glucagon (Glucagen) 1 mg Q15M PRN IM DECREASED GLUCOSE; Start 05/26/17 at 17:57 Glucose (Glutose) 15 gm Q15M PRN BUCCAL DECREASED GLUCOSE; Start 05/26/17 at 17 :57 Hydromorphone HCl (Dilaudid) 1 mg Q4H PRN IV PAIN Last administered on 09:43; Admin Dose 1 MG; Start 05/26/17 at 18:30 Docusate Sodium (Colace) 100 mg BID PO Last administered on 06/06/17 09:26; Admin Dose 100 MG; Start 05/29/17 at 21:00 Bisacodyl (Dulcolax Supp) 10 mg DAILY PRN [place] CONSTIPATION; Start 05/29/17 at 20 :30 Magnesium Hydroxide (Milk Of Mag) 30 ml BID PRN PO CONSTIPATION; Start at 20:30 Lactulose (Enulose) 20 gm DAILY PRN PO CONSTIPATION Last administered on 06:15; Admin Dose 20 GM; Start 05/29/17 at 20:30 Lorazepam (Ativan) 1 mg HS PRN PO SLEEP Last administered on 06/05/17 23:15; Admin Dose 1 MG; Start 05/29/17 at 22:30 Senna (Senokot) 2 tab HS PO Last administered on 06/05/17 20:47; Admin Dose 2 TAB; Start 06/04/17 at 21:00 Metoprolol Succinate (Toprol Xl) 50 mg BID PO ; Start 06/04/17 at 21:00 Isosorbide Mononitrate (Imdur) 30 mg DAILY PO Last administered on 06/04/17 19: 00; Admin Dose 30 MG; Start 06/04/17 at 16:30 Aspirin (Aspirin) 81 mg DAILY PO Last administered on 06/06/17 08:29; Admin Dose 81 MG; Start 06/04/17 at 15:00 Clopidogrel Bisulfate (plaVIX) 75 mg DAILY PO Last administered on 06/06/17 08: 29; Admin Dose 75 MG; Start 06/04/17 at 15:00 Assessment/Plan Additional Assessment/Plan Rehabilitation-Lumbar spinal stenosis with spondylolisthesis status post Lumbar Laminectomy Rehab activities as tolerated, monitor blood pressure Cardiac-workup in progress Anemia Diabetes Mellitus type 2 Hypertension Alcoholic Liver Disease CHANTELLE YO MD Jun 06, 2017 13:05
[2017-06-06] MEDS: PRAMIPEXOLE 0.125 MG TAB PO SCH (17:59)
--- NOTE | 2017-06-06 19:28 | PN ---
Date/Time of Note Date/Time of Note DATE: 06/06/17 TIME: 19:23 Assessment/Plan VTE Prophylaxis VTE Prophylaxis Intervention: ambulation, SCD's Lines/Catheters IV [facility] Saline Lock Urinary Cath still in place: No Assessment/Plan Problems: (1) Coronary artery disease Status: Chronic Comment: To have nuclear stress test tomorrow. Qualifiers: Coronary Disease-Associated Artery/Lesion type: [place] artery [place] vs. transplanted heart: [place] heart Associated angina: without angina Qualified Code: I25.10 - Coronary artery disease involving [place] coronary artery of [place] heart without angina pectoris (2) Essential (primary) hypertension Status: Chronic Comment: BP controlled. Cont. current regimen if not on hold for prior hypotensive episode. (3) Type 2 diabetes mellitus without complications Status: Chronic Comment: Good glycemic control. Cont. 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 Associated w/ mild thrombocytosis. May represent mild myoproliferative syndrome but at these levels, no need to involve heme. Qualifiers: Leukocytosis type: unspecified Qualified Code: D72.829 - Leukocytosis, unspecified type (5) Lumbar spinal stenosis Status: Resolved Comment: Cont. rehab. (6) Hyperkalemia Status: Acute Comment: Mild but elevated for no apparent reason. Recheck in am. Subjective 24 Hr Interval Summary Constitutional: improved, no complaints Respiratory: no complaints Cardiovascular: no complaints Gastrointestinal: no complaints Genitourinary: no complaints Musculoskeletal: back pain (varies from 3/10 to 7/10) Neurologic: no complaints Exam/Review of Systems Vital Signs Vitals VS - Last 72 Hours, by Label Date Time Temp Pulse Resp B/P Pulse Ox O2 Delivery O2 Flow Rate FiO2 06/06/17 08:07 98.2 107 18 143/84 98 06/06/17 02:00 98.0 90 18 109/62 98 06/05/17 20:00 98.2 99 18 91/60 97 06/05/17 17:00 125/75 06/05/17 14:00 97.8 101 20 107/60 94 06/05/17 11:00 110/59 06/05/17 10:00 109/59 06/05/17 08:30 108/58 06/05/17 08:00 100/58 06/05/17 07:30 97.8 116 18 84/61 98 06/04/17 20:00 97.7 97 18 129/68 99 06/04/17 01:53 97.5 93 18 143/72 99 06/03/17 20:08 98.0 80 18 106/64 99 Room Air Vital Signs Date Time Temp Pulse Resp B/P Pulse Ox O2 Delivery O2 Flow Rate FiO2 06/06/17 08:07 98.2 107 18 143/84 98 06/03/17 20:08 Room Air Intake and Output 06/05/17 06/05/17 06/06/17 15:00 23:00 07:00 Intake Total 500 ml 500 ml Output Total 450 ml Balance 500 ml 50 ml Exam Constitutional: alert, oriented, well developed Psych: nl mood/affect, no complaints Respiratory: clear to auscultation, normal air movement Cardiovascular: nl pulses, regular rate and rhythm, No edema, No murmurs/extra sounds, No rub Gastrointestinal: bowel sounds, nl liver, spleen, non-tender, soft, No mass, No rebound or guarding Musculoskeletal: nl extremities to inspection Extremities: normal pulses, No clubbing, No cyanosis, No edema 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, nl mental status, nl speech, nl strength Additional Comments Bedside Glucose - 72 Hours Test 06/04/17 08:01 06/04/17 12:18 06/04/17 17:32 06/05/17 07:52 Bedside Glucose 129mg/dL (70-220) 116mg/dL (70-220) 181mg/dL (70-220) 163mg/dL (70-220) Test 06/05/17 07:53 06/05/17 17:41 06/06/17 07:54 06/06/17 17:28 Bedside Glucose 190mg/dL (70-220) 144mg/dL (70-220) 130mg/dL (70-220) 126mg/dL (70-220) Results Result Diagram: 06/06/17 0606 06/06/17 0606 Results 24 hrs Laboratory Tests Test 06/06/17 06:06 06/06/17 07:54 06/06/17 17:28 White Blood Count 12.1 #H Red Blood Count 3.08 L Hemoglobin 10.6 L Hematocrit 30.5 L Mean Corpuscular Volume 99.0 Mean Corpuscular Hemoglobin 34.4 H Mean Corpuscular Hemoglobin Concent 34.8 Red Cell Distribution Width 14.0 Platelet Count 636 #H Mean Platelet Volume 9.4 Neutrophils % 73.5 Lymphocytes % 15.6 Monocytes % 5.9 Eosinophils % 3.5 Basophils % 0.7 Nucleated Red Blood Cells % 0.0 Neutrophils # 8.9 H Lymphocytes # 1.9 Monocytes # 0.7 Eosinophils # 0.4 Basophils # 0.1 Nucleated Red Blood Cells # 0.0 Sodium Level 140 Potassium Level 5.5 H Chloride Level 100 Carbon Dioxide Level 30 Anion Gap 16 Blood Urea Nitrogen 18 Creatinine 0.81 Glucose Level 119 Calcium Level 9.2 Total Bilirubin 0.1 L Direct Bilirubin 0.00 Indirect Bilirubin 0.1 Aspartate Amino Transf (AST/SGOT) 17 Alanine Aminotransferase (ALT/SGPT) 24 Alkaline Phosphatase 98 Total Protein 6.1 Albumin 3.4 Globulin 2.70 Albumin/Globulin Ratio 1.25 Bedside Glucose 130 126 Medications Medications Current Medications Acetaminophen/ Hydrocodone Bitart ([place] (5/325)) 1 tab Q4H PRN PO PAIN LEVEL 1 -5 Last administered on 06/02/17 20:26; Admin Dose 1 TAB; Start 05/26/17 at 17: 57 Acetaminophen/ Hydrocodone Bitart ([place] (5/325)) 2 tab Q4H PRN PO PAIN LEVEL 6 -10 Last administered on 06/06/17 16:40; Admin Dose 2 TAB; Start 05/26/17 at 17: 57 Ondansetron HCl (Zofran Inj) 4 mg Q6H PRN IV NAUSEA AND/OR VOMITING; Start at 17:57 Acetaminophen (Tylenol Tab) 650 mg Q4H PRN PO TEMP GREATER THAN 101F/HAILE/PAIN; Start 05/26/17 at 17:57 Lisinopril (Zestril) 10 mg DAILY PO Last administered on 06/04/17 10:18; Admin Dose 10 MG; Start 05/26/17 at 17:57 Glucose (Glutose) 15 gm Q15M PRN PO DECREASED GLUCOSE; Start 05/26/17 at 17:57 Glucose (Glutose) 22.5 gm Q15M PRN PO DECREASED GLUCOSE; Start 05/26/17 at 17: 57 Dextrose (D50w Syringe) 25 ml Q15M PRN IV DECREASED GLUCOSE; Start 05/26/17 at 17:57 Dextrose (D50w Syringe) 50 ml Q15M PRN IV DECREASED GLUCOSE; Start 05/26/17 at 17:57 Glucagon (Glucagen) 1 mg Q15M PRN IM DECREASED GLUCOSE; Start 05/26/17 at 17:57 Glucose (Glutose) 15 gm Q15M PRN BUCCAL DECREASED GLUCOSE; Start 05/26/17 at 17 :57 Hydromorphone HCl (Dilaudid) 1 mg Q4H PRN IV PAIN Last administered on 18:47; Admin Dose 1 MG; Start 05/26/17 at 18:30 Docusate Sodium (Colace) 100 mg BID PO Last administered on 06/06/17 09:26; Admin Dose 100 MG; Start 05/29/17 at 21:00 Bisacodyl (Dulcolax Supp) 10 mg DAILY PRN [place] CONSTIPATION; Start 05/29/17 at 20 :30 Magnesium Hydroxide (Milk Of Mag) 30 ml BID PRN PO CONSTIPATION; Start at 20:30 Lactulose (Enulose) 20 gm DAILY PRN PO CONSTIPATION Last administered on 06:15; Admin Dose 20 GM; Start 05/29/17 at 20:30 Lorazepam (Ativan) 1 mg HS PRN PO SLEEP Last administered on 06/05/17 23:15; Admin Dose 1 MG; Start 05/29/17 at 22:30 Senna (Senokot) 2 tab HS PO Last administered on 06/05/17 20:47; Admin Dose 2 TAB; Start 06/04/17 at 21:00 Metoprolol Succinate (Toprol Xl) 50 mg BID PO ; Start 06/04/17 at 21:00 Isosorbide Mononitrate (Imdur) 30 mg DAILY PO Last administered on 06/04/17 19: 00; Admin Dose 30 MG; Start 06/04/17 at 16:30 Aspirin (Aspirin) 81 mg DAILY PO Last administered on 06/06/17 08:29; Admin Dose 81 MG; Start 06/04/17 at 15:00 Clopidogrel Bisulfate (plaVIX) 75 mg DAILY PO Last administered on 06/06/17t 08: 29; Admin Dose 75 MG; Start 06/04/17 at 15:00 SAMANTA FRAIRE MD Jun 06, 2017 19:28
[2017-06-06 20:00] VITALS: BP 137/69; RESP 18
[2017-06-06] MEDS: SENNA TAB PO SCH (20:35)
[2017-06-06] MEDS: LORAZEPAM 1 MG TAB PO PRN (22:47)
[2017-06-07] MEDS: HYDROmorphONE 1 MG/ML SYG IV PRN ×4 (03:25→19:44)
[2017-06-07 03:59] VITALS: BP 127/65; RESP 18
[2017-06-07] MEDS: INSULIN ASPART [NOVOLOG] 3 ML PEN SC SCH ×2 (07:05→17:05)
[2017-06-07] MEDS: ACCU-CHEK XX SCH ×2 (07:05→17:39)
[2017-06-07 07:26] LABS: BASOPHIL # 0.1 10^3/ul (0.0-0.1); BASOPHILS % 0.5 % (0.0-2.0); EOSINOPHILS # 0.4 10^3/ul (0.0-0.5); EOSINOPHILS % 2.7 % (0.0-7.0); HEMATOCRIT 31.6 % (42.0-52.0); HEMOGLOBIN 11.1 g/dl (14.0-18.0); LYMPHOCYTES # 1.8 10^3/ul (0.8-2.9); LYMPHOCYTES % 13.5 % (15.0-51.0); MEAN CORPUSCULAR HEMOGLOBIN 34.9 pg (29.0-33.0); MEAN CORPUSCULAR HGB CONC 35.1 g/dl (32.0-37.0); MEAN CORPUSCULAR VOLUME 99.4 fl (82.0-101.0); MEAN PLATELET VOLUME 9.4 fl (7.4-10.4); MONOCYTE # 0.6 10^3/ul (0.3-0.9); MONOCYTES % 4.9 % (0.0-11.0); NEUTROPHIL # 10.1 10^3/ul (1.6-7.5); NEUTROPHILS % 77.9 % (39.0-77.0); PLATELET COUNT 661 10^3/UL (140-415); RED BLOOD COUNT 3.18 10^6/ul (4.70-6.10); RED CELL DISTRIBUTION WIDTH 13.8 % (11.5-14.5)
[2017-06-07 07:28] VITALS: BP 141/67; RESP 18
[2017-06-07] MEDS: metFORMIN 500 MG TAB PO SCH ×2 (07:35→17:40)
[2017-06-07 07:46] LABS: CALCIUM 9.3 mg/dl (8.4-10.2); CREATININE 0.78 mg/dl (0.61-1.24); POTASSIUM 4.2 mmol/L (3.5-5.1)
[2017-06-07] MEDS: ASPIRIN 81 MG TAB PO SCH (08:06)
[2017-06-07] MEDS: DOCUSATE SODIUM 100 MG CAP PO SCH ×2 (08:06→20:34)
[2017-06-07] MEDS: METOPROLOL (XL) 50 MG TAB PO SCH ×2 (09:00→20:39)
[2017-06-07] MEDS: CLOPIDOGREL 75 MG TAB PO SCH (09:00)
[2017-06-07] MEDS: LISINOPRIL 10 MG TAB PO SCH (09:01)
[2017-06-07] MEDS: ISOSORBIDE MONONITRATE(SR)30 MG TAB PO SCH (09:01)
[2017-06-07] MEDS ORDERED: REGADENOSON 0.4 MG/5 ML SYG ONE (11:55)
--- NOTE | 2017-06-07 12:40 | CONS ---
Date/Time of Note Date/Time of Note DATE: 06/07/17 TIME: 12:34 Assessment/Plan Assessment/Plan Chief Complaint/Hosp Course IMP: 1.Positive troponin-minimal elevation. No current chest pain 2.HTN-reasonable 3.H/O PTCA/stent 10 years prior 4.Lumbar spinal stenosis s/p surgery 5.anemia 6.DM Recc: -At rehab -Continue BB/oral nitrates -Continue asa/plavix -Follow BS closely -Lexiscan stress test today to assess significance of minimally positive troponin and possible territory at risk Problems: Consultation Date/Type/Reason Admit Date/Time May 26, 2017 at 17:11 Initial Consult Date 06/04/2017 Type of Consultation: cardiology Reason for Consultation positive troponin Referring Provider: NOREEN LINDSAY MD Exam/Review of Systems Vital Signs Vitals Vital Signs Date Time Temp Pulse Resp B/P Pulse Ox O2 Delivery O2 Flow Rate FiO2 06/07/17 07:28 97.9 57 18 141/67 96 06/03/17 20:08 Room Air Intake and Output 06/06/17 06/06/17 06/07/17 15:00 23:00 07:00 Intake Total 1170 ml 360 ml Output Total 253 ml Balance 917 ml 360 ml Exam Review of Systems: CONSTITUTIONAL: No fevers, chills. PULMONARY: No sob CARDIOVASCULAR: No chest pain/palpitations GASTROINTESTINAL: No nausea/vomiting. GENITOURINARY: No hematuria/dysuria. MUSCULOSKELETAL: back pain PSYCHIATRIC: The patient denies depression. NEUROLOGIC: No weakness Constitutional: alert Psych: no complaints Head: normocephalic Neck: jvd (8-9 cm water), supple Respiratory: clear to auscultation Cardiovascular: regular rate and rhythm Gastrointestinal: non-tender, soft Musculoskeletal: muscle tone (normal) Extremities: edema (none) Neurological: focal weakness (legs bilateral) Results Result Diagram: 06/07/17 0647 06/07/17 0647 Results 24 hrs Laboratory Tests Test 06/06/17 17:28 06/07/17 06:47 06/07/17 07:44 06/07/17 10:27 Bedside Glucose 126 115 132 White Blood Count 13.0 H Red Blood Count 3.18 L Hemoglobin 11.1 L Hematocrit 31.6 L Mean Corpuscular Volume 99.4 Mean Corpuscular Hemoglobin 34.9 H Mean Corpuscular Hemoglobin Concent 35.1 Red Cell Distribution Width 13.8 Platelet Count 661 H Mean Platelet Volume 9.4 Neutrophils % 77.9 H Lymphocytes % 13.5 L Monocytes % 4.9 Eosinophils % 2.7 Basophils % 0.5 Nucleated Red Blood Cells % 0.0 Neutrophils # 10.1 H Lymphocytes # 1.8 Monocytes # 0.6 Eosinophils # 0.4 Basophils # 0.1 Nucleated Red Blood Cells # 0.0 Sodium Level 142 Potassium Level 4.2 Chloride Level 101 Carbon Dioxide Level 30 Anion Gap 15 Blood Urea Nitrogen 19 Creatinine 0.78 Glucose Level 105 Calcium Level 9.3 Medications Medications Current Medications Acetaminophen/ Hydrocodone Bitart ([place] (5/325)) 1 tab Q4H PRN PO PAIN LEVEL 1 -5 Last administered on 06/02/17 20:26; Admin Dose 1 TAB; Start 05/26/17 at 17: 57 Acetaminophen/ Hydrocodone Bitart ([place] (5/325)) 2 tab Q4H PRN PO PAIN LEVEL 6 -10 Last administered on 06/06/17 16:40; Admin Dose 2 TAB; Start 05/26/17 at 17: 57 Ondansetron HCl (Zofran Inj) 4 mg Q6H PRN IV NAUSEA AND/OR VOMITING; Start at 17:57 Acetaminophen (Tylenol Tab) 650 mg Q4H PRN PO TEMP GREATER THAN 101F/HAILE/PAIN; Start 05/26/17 at 17:57 Lisinopril (Zestril) 10 mg DAILY PO Last administered on 06/07/17 09:01; Admin Dose 10 MG; Start 05/26/17 at 17:57 Glucose (Glutose) 15 gm Q15M PRN PO DECREASED GLUCOSE; Start 05/26/17 at 17:57 Glucose (Glutose) 22.5 gm Q15M PRN PO DECREASED GLUCOSE; Start 05/26/17 at 17: 57 Dextrose (D50w Syringe) 25 ml Q15M PRN IV DECREASED GLUCOSE; Start 05/26/17 at 17:57 Dextrose (D50w Syringe) 50 ml Q15M PRN IV DECREASED GLUCOSE; Start 05/26/17 at 17:57 Glucagon (Glucagen) 1 mg Q15M PRN IM DECREASED GLUCOSE; Start 05/26/17 at 17:57 Glucose (Glutose) 15 gm Q15M PRN BUCCAL DECREASED GLUCOSE; Start 05/26/17 at 17 :57 Hydromorphone HCl (Dilaudid) 1 mg Q4H PRN IV PAIN Last administered on 07:20; Admin Dose 1 MG; Start 05/26/17 at 18:30 Docusate Sodium (Colace) 100 mg BID PO Last administered on 06/06/17 20:35; Admin Dose 100 MG; Start 05/29/17 at 21:00 Bisacodyl (Dulcolax Supp) 10 mg DAILY PRN [place] CONSTIPATION; Start 05/29/17 at 20 :30 Magnesium Hydroxide (Milk Of Mag) 30 ml BID PRN PO CONSTIPATION; Start at 20:30 Lactulose (Enulose) 20 gm DAILY PRN PO CONSTIPATION Last administered on 06:15; Admin Dose 20 GM; Start 05/29/17 at 20:30 Lorazepam (Ativan) 1 mg HS PRN PO SLEEP Last administered on 06/06/17 22:47; Admin Dose 1 MG; Start 05/29/17 at 22:30 Senna (Senokot) 2 tab HS PO Last administered on 06/06/17 20:35; Admin Dose 2 TAB; Start 06/04/17 at 21:00 Metoprolol Succinate (Toprol Xl) 50 mg BID PO Last administered on 06/06/17 20: 36; Admin Dose 50 MG; Start 06/04/17 at 21:00 Isosorbide Mononitrate (Imdur) 30 mg DAILY PO Last administered on 06/07/17 09: 01; Admin Dose 30 MG; Start 06/04/17 at 16:30 Aspirin (Aspirin) 81 mg DAILY PO Last administered on 06/06/17 08:29; Admin Dose 81 MG; Start 06/04/17 at 15:00 Clopidogrel Bisulfate (plaVIX) 75 mg DAILY PO Last administered on 06/06/17 08: 29; Admin Dose 75 MG; Start 06/04/17 at 15:00 KAHLIL BROWNE Jun 07, 2017 12:40
--- NOTE | 2017-06-07 13:10 | CARRPT ---
DATE OF PROCEDURE: 06/07/2017 TYPE OF PROCEDURE: Lexiscan Cardiolite stress test. REASON FOR STRESS TESTING: Positive troponin of significance. Assess for territory at risk. REQUESTING PHYSICIAN: Dr. Liao. BRIEF HOSPITAL COURSE: Mr. Toribio is a 72-year-old male, with history of hypertension, prior PTCA stent placement, underwent a lumbar back surgery. Postop, the patient had developed chest pain and minimally positive troponin. Given these findings, cardiac consult requested. The patient is now undergoing a stress test in order to assess significance of the minimally positive troponin. PROCEDURE: After informed consent was obtained, patient was brought to the [facility] Cardiology Department where he was connected to continuous telemetry monitoring, blood pressure cuff, cycling every 3 minutes. The patient was given Lexiscan infused over 10 seconds followed by radiotracer. Patient's test was stopped due to completion of protocol. Maximal achieved blood pressure during test 120/73, maximum heart rate during test 118. ELECTROCARDIOGRAM FINDINGS: During Lexiscan infusion, the patient did develop any new Lexiscan-induced ST changes from baseline abnormalities. No documented PVCs. SYMPTOMS: The patient had no complaints of chest pain or shortness of breath during stress testing. IMPRESSION: 1. No Lexiscan-induced ST or T-wave changes from baseline abnormalities ischemia. 2. No complaints of chest pain or shortness of breath during stress test. 3. No documented premature ventricular contractions during stress test. 4. Report of nuclear images to follow in separate dictation. Dictated By: Darrin Tolentino /laura/macy /Document#: [id number] ; Dr. Liao; Dr. Rajput
--- NOTE | 2017-06-07 13:16 | CONS ---
Date/Time of Note Date/Time of Note DATE: 06/07/17 TIME: 13:15 Consult Date/Type/Reason Admit Date/Time May 26, 2017 at 17:11 Type of Consultation: cardiology Ordering Provider: NOREEN LINDSAY MD Subjective Patient to have stress test today Objective Vital Signs Date Time Temp Pulse Resp B/P Pulse Ox O2 Delivery O2 Flow Rate FiO2 06/07/17 07:28 97.9 57 18 141/67 96 06/03/17 20:08 Room Air Intake and Output 06/06/17 06/06/17 06/07/17 15:00 23:00 07:00 Intake Total 1170 ml 360 ml Output Total 253 ml Balance 917 ml 360 ml Results/Medications Result Diagram: 06/07/17 0647 06/07/17 0647 Results 24 hrs Laboratory Tests Test 06/06/17 17:28 06/07/17 06:47 06/07/17 07:44 06/07/17 10:27 Bedside Glucose 126 115 132 White Blood Count 13.0 H Red Blood Count 3.18 L Hemoglobin 11.1 L Hematocrit 31.6 L Mean Corpuscular Volume 99.4 Mean Corpuscular Hemoglobin 34.9 H Mean Corpuscular Hemoglobin Concent 35.1 Red Cell Distribution Width 13.8 Platelet Count 661 H Mean Platelet Volume 9.4 Neutrophils % 77.9 H Lymphocytes % 13.5 L Monocytes % 4.9 Eosinophils % 2.7 Basophils % 0.5 Nucleated Red Blood Cells % 0.0 Neutrophils # 10.1 H Lymphocytes # 1.8 Monocytes # 0.6 Eosinophils # 0.4 Basophils # 0.1 Nucleated Red Blood Cells # 0.0 Sodium Level 142 Potassium Level 4.2 Chloride Level 101 Carbon Dioxide Level 30 Anion Gap 15 Blood Urea Nitrogen 19 Creatinine 0.78 Glucose Level 105 Calcium Level 9.3 Medications Current Medications Acetaminophen/ Hydrocodone Bitart ([place] (5/325)) 1 tab Q4H PRN PO PAIN LEVEL 1 -5 Last administered on 06/02/17 20:26; Admin Dose 1 TAB; Start 05/26/17 at 17: 57 Acetaminophen/ Hydrocodone Bitart ([place] (5/325)) 2 tab Q4H PRN PO PAIN LEVEL 6 -10 Last administered on 06/06/17 16:40; Admin Dose 2 TAB; Start 05/26/17 at 17: 57 Ondansetron HCl (Zofran Inj) 4 mg Q6H PRN IV NAUSEA AND/OR VOMITING; Start at 17:57 Acetaminophen (Tylenol Tab) 650 mg Q4H PRN PO TEMP GREATER THAN 101F/HAILE/PAIN; Start 05/26/17 at 17:57 Lisinopril (Zestril) 10 mg DAILY PO Last administered on 06/07/17 09:01; Admin Dose 10 MG; Start 05/26/17 at 17:57 Glucose (Glutose) 15 gm Q15M PRN PO DECREASED GLUCOSE; Start 05/26/17 at 17:57 Glucose (Glutose) 22.5 gm Q15M PRN PO DECREASED GLUCOSE; Start 05/26/17 at 17: 57 Dextrose (D50w Syringe) 25 ml Q15M PRN IV DECREASED GLUCOSE; Start 05/26/17 at 17:57 Dextrose (D50w Syringe) 50 ml Q15M PRN IV DECREASED GLUCOSE; Start 05/26/17 at 17:57 Glucagon (Glucagen) 1 mg Q15M PRN IM DECREASED GLUCOSE; Start 05/26/17 at 17:57 Glucose (Glutose) 15 gm Q15M PRN BUCCAL DECREASED GLUCOSE; Start 05/26/17 at 17 :57 Hydromorphone HCl (Dilaudid) 1 mg Q4H PRN IV PAIN Last administered on 07:20; Admin Dose 1 MG; Start 05/26/17 at 18:30 Docusate Sodium (Colace) 100 mg BID PO Last administered on 06/06/17 20:35; Admin Dose 100 MG; Start 05/29/17 at 21:00 Bisacodyl (Dulcolax Supp) 10 mg DAILY PRN [place] CONSTIPATION; Start 05/29/17 at 20 :30 Magnesium Hydroxide (Milk Of Mag) 30 ml BID PRN PO CONSTIPATION; Start at 20:30 Lactulose (Enulose) 20 gm DAILY PRN PO CONSTIPATION Last administered on 06:15; Admin Dose 20 GM; Start 05/29/17 at 20:30 Lorazepam (Ativan) 1 mg HS PRN PO SLEEP Last administered on 06/06/17 22:47; Admin Dose 1 MG; Start 05/29/17 at 22:30 Senna (Senokot) 2 tab HS PO Last administered on 06/06/17 20:35; Admin Dose 2 TAB; Start 06/04/17 at 21:00 Metoprolol Succinate (Toprol Xl) 50 mg BID PO Last administered on 06/06/17 20: 36; Admin Dose 50 MG; Start 06/04/17 at 21:00 Isosorbide Mononitrate (Imdur) 30 mg DAILY PO Last administered on 06/07/17 09: 01; Admin Dose 30 MG; Start 06/04/17 at 16:30 Aspirin (Aspirin) 81 mg DAILY PO Last administered on 06/06/17 08:29; Admin Dose 81 MG; Start 06/04/17 at 15:00 Clopidogrel Bisulfate (plaVIX) 75 mg DAILY PO Last administered on 06/06/17 08: 29; Admin Dose 75 MG; Start 06/04/17 at 15:00 Assessment/Plan Additional Assessment/Plan Rehabilitation-Lumbar spinal stenosis with spondylolisthesis status post Lumbar Laminectomy Rehab activities as tolerated Cardiac-workup in progress Anemia Diabetes Mellitus type 2 Hypertension Alcoholic Liver Disease CHANTELLE YO MD Jun 07, 2017 13:16
--- NOTE | 2017-06-07 14:04 | RADRPT ---
PROCEDURE: Lexiscan myocardial perfusion study CLINICAL INDICATION: 72 -year-old patient complaining of chest pain. TECHNIQUE: Lexiscan 0.4 mg intravenously separate acquisition gated myocardial perfusion SPECT usi ng Tc 99m Myoview approximately 30.0 mCi intravenously at stress and Tc-99m Myoview, approximately 1 0.0 mCi intravenously at rest was performed using the rest/stress sequence. Poststress Myoview SPEC T images were obtained in the supine position. COMPARISON: No prior studies. FINDINGS: Perfusion images reveal a moderate size moderate in degree nonreversible perfusion defect in the inf eroapical, distal to mid septal, distal anterior and distal inferior euceda. Lexiscan post stress gated SPECT images demonstrate no wall motion abnormalities. IMPRESSION: 1. The type and distribution of the scintigraphic abnormalities are most consistent with a moderate -sized nonreversible perfusion defect involving the inferoapical, distal anterior, distal to mid sep michele and distal inferior euceda. 2. No wall motion abnormalities. 3. The left ventricle ejection fraction at stress is 59%. RPTAT: HH .Mallorie Barboza MD, Date Time Electronically viewed and signed by .Mallorie Barboza MD, on 06/07/2017 14:03 .L/
--- NOTE | 2017-06-07 15:58 | RADRPT ---
Vent Rate: 98 bpm RR Interval: 0 msec NJ Interval: 174 msec QRS Duration: 82 msec QT Interval: 354 msec QTC Interval: 451 msec P-R-T Otto: 79 - 74 - 84 degrees Normal sinus rhythm Right atrial enlargement Cannot rule out Anteroseptal infarct , age undetermined Abnormal ECG Electronically Signed By: Kip Myers [id number]
[2017-06-07] MEDS: PRAMIPEXOLE 0.125 MG TAB PO SCH (17:40)
[2017-06-07 20:02] VITALS: BP 97/61; RESP 18
[2017-06-07] MEDS: SENNA TAB PO SCH (20:34)
[2017-06-07 20:39] VITALS: BP 110/61; PULSE 96
[2017-06-08] MEDS: HYDROmorphONE 1 MG/ML SYG IV PRN ×5 (00:59→18:33)
[2017-06-08 02:00] VITALS: BP 118/60; RESP 18
[2017-06-08] MEDS: INSULIN ASPART [NOVOLOG] 3 ML PEN SC SCH ×2 (07:05→17:05)
[2017-06-08] MEDS: ACCU-CHEK XX SCH ×2 (07:05→17:05)
[2017-06-08 07:30] VITALS: BP 101/61; RESP 18
[2017-06-08] MEDS: HYDROCODONE/APAP (5/325) TAB PO PRN ×2 (08:24→22:08)
[2017-06-08] MEDS: metFORMIN 500 MG TAB PO SCH ×2 (08:27→18:33)
[2017-06-08] MEDS: LISINOPRIL 10 MG TAB PO SCH (09:00)
[2017-06-08] MEDS: METOPROLOL (XL) 50 MG TAB PO SCH (09:00)
[2017-06-08] MEDS: ISOSORBIDE MONONITRATE(SR)30 MG TAB PO SCH (09:00)
--- NOTE | 2017-06-08 09:40 | RADRPT ---
Echocardiogram Report Patient Name: ANAND GONZALEZ Gender: Male Date: 1945 Study Date: 04-Jun-2017 [employer] Spacecraft: [id number] Location: I Ref. Physician: ASHISH BELTRAN Quality: Technically Difficult Study Procedures: Transthoracic echocardiogram examination, apical and subcostal images only. Indications: Chest Pain. 2D/M Mode Doppler Measurement Value Normal Range Measurement Value Normal Range LVIDd 2D 3.4 3.5 - 5.6 cm AV Peak Masood 0.9 m/sec LVIDs 2D 2.5 2.1 - 4.1 cm AV Peak PG 3.4 mmHg LVPWd 2D 0.9 0.6 - 1.1 cm LVOT Peak Masood 0.7 m/sec IVSd 2D 1.3 0.6 - 1.1 cm LVOT Peak PG 2.1 mmHg EDV 2D 48.7 cm3 MV E Peak Masood 0.9 m/sec ESV 2D 15.7 cm3 MV A Peak Masood 0.6 m/sec LA Dimen 2D 2.7 2.3 - 4.0 cm MV E/A 1.3 MV Decel Time 122 msec MV Decel [place] 7 MV E/A 1.3 TR Peak Masood 2.5 m/sec TR Peak PG 24.0 mmHg RVSP 27.0 mmHg Findings Left Ventricle: Normal left ventricular cavity size. Lower limits of normal left ventricular systolic function. Tissue Doppler/Mitral Doppler indices are consistent with pseudonormalization with mildly elevated left atrial pressure (Stage II diastolic dysfunction), although patient could not Valsalva. Mild hypertrophy of the basal septum. The left ventricular ejection fraction is visually estimated at 50 %. These segments of the LV are hypokinetic: anterior apex segment, anteroseptum base segment and anteroseptum mid segment. Right Ventricle: Normal right ventricular size. Normal right ventricular systolic function. Left Atrium: The left atrium is normal in size and appearance. Right Atrium: The right atrium is normal in size and appearance. Atrial Septum: Normal atrial septum. Aortic Valve: Normal appearance and function of the aortic valve. No hemodynamically significant aortic stenosis by Doppler. Trileaflet aortic valve. Tricuspid Valve: Normal appearance of the tricuspid valve. The estimated Peak RVSP is 27 mmHg. There is mild tricuspid regurgitation. Pulmonic Valve: The pulmonic valve is not well visualized. Pericardium: Normal pericardium with no significant pericardial effusion. Aorta: Normal appearing aortic root to extent visualized. IVC: Normal inferior vena cava appearance. Pulmonary Artery: Pulmonary artery is not well visualized. Conclusions Normal left ventricular cavity size. Lower limits of normal left ventricular systolic function. Tissue Doppler/Mitral Doppler indices are consistent with pseudonormalization with mildly elevated left atrial pressure (Stage II diastolic dysfunction), although patient could not Valsalva. Mild hypertrophy of the basal septum. The left ventricular ejection fraction is visually estimated at 50 %. These segments of the LV are hypokinetic: anterior apex segment, anteroseptum base segment and anteroseptum mid segment. Normal appearance and function of the aortic valve. No hemodynamically significant aortic stenosis by Doppler. Normal appearance of the tricuspid valve. The estimated Peak RVSP is 27 mmHg. There is mild tricuspid regurgitation. The pulmonic valve is not well visualized. Normal pericardium with no significant pericardial effusion. Electronically Signed By: Ashish Beltran 08-Jun-2017 09:38:59 -0700 Patient Name: ANAND GONZALEZ Study Date: 04-Jun-2017 [id number]
[2017-06-08] MEDS: DOCUSATE SODIUM 100 MG CAP PO SCH ×2 (09:57→22:04)
[2017-06-08] MEDS: CLOPIDOGREL 75 MG TAB PO SCH (09:58)
[2017-06-08] MEDS: ASPIRIN 81 MG TAB PO SCH (09:58)
--- NOTE | 2017-06-08 10:36 | CONS ---
Date/Time of Note Date/Time of Note DATE: 06/08/17 TIME: 10:36 Consult Date/Type/Reason Admit Date/Time May 26, 2017 at 17:11 Type of Consultation: cardiology Ordering Provider: NOREEN LINDSAY MD Subjective Comfortable Objective Lungs clear abdomen soft Standby assist to 60 feet Vital Signs Date Time Temp Pulse Resp B/P Pulse Ox O2 Delivery O2 Flow Rate FiO2 06/08/17 07:30 98.3 87 18 101/61 97 Intake and Output 06/07/17 06/07/17 06/08/17 15:00 23:00 07:00 Intake Total 360 ml 360 ml 740 ml Output Total 950 ml Balance -590 ml 360 ml 740 ml Results/Medications Result Diagram: 06/07/17 0647 06/07/17 0647 Results 24 hrs Laboratory Tests Test 06/07/17 13:38 06/07/17 17:26 06/08/17 08:21 Bedside Glucose 149 161 127 Medications Current Medications Acetaminophen/ Hydrocodone Bitart ([place] (5/325)) 1 tab Q4H PRN PO PAIN LEVEL 1 -5 Last administered on 06/02/17 20:26; Admin Dose 1 TAB; Start 05/26/17 at 17: 57 Acetaminophen/ Hydrocodone Bitart ([place] (5/325)) 2 tab Q4H PRN PO PAIN LEVEL 6 -10 Last administered on 06/08/17 08:24; Admin Dose 2 TAB; Start 05/26/17 at 17 :57 Ondansetron HCl (Zofran Inj) 4 mg Q6H PRN IV NAUSEA AND/OR VOMITING; Start at 17:57 Acetaminophen (Tylenol Tab) 650 mg Q4H PRN PO TEMP GREATER THAN 101F/HAILE/PAIN; Start 05/26/17 at 17:57 Lisinopril (Zestril) 10 mg DAILY PO Last administered on 06/07/17 09:01; Admin Dose 10 MG; Start 05/26/17 at 17:57 Glucose (Glutose) 15 gm Q15M PRN PO DECREASED GLUCOSE; Start 05/26/17 at 17:57 Glucose (Glutose) 22.5 gm Q15M PRN PO DECREASED GLUCOSE; Start 05/26/17 at 17: 57 Dextrose (D50w Syringe) 25 ml Q15M PRN IV DECREASED GLUCOSE; Start 05/26/17 at 17:57 Dextrose (D50w Syringe) 50 ml Q15M PRN IV DECREASED GLUCOSE; Start 05/26/17 at 17:57 Glucagon (Glucagen) 1 mg Q15M PRN IM DECREASED GLUCOSE; Start 05/26/17 at 17:57 Glucose (Glutose) 15 gm Q15M PRN BUCCAL DECREASED GLUCOSE; Start 05/26/17 at 17 :57 Hydromorphone HCl (Dilaudid) 1 mg Q4H PRN IV PAIN Last administered on 10:03; Admin Dose 1 MG; Start 05/26/17 at 18:30 Docusate Sodium (Colace) 100 mg BID PO Last administered on 06/08/17 09:57; Admin Dose 100 MG; Start 05/29/17 at 21:00 Bisacodyl (Dulcolax Supp) 10 mg DAILY PRN [place] CONSTIPATION; Start 05/29/17 at 20 :30 Magnesium Hydroxide (Milk Of Mag) 30 ml BID PRN PO CONSTIPATION; Start at 20:30 Lactulose (Enulose) 20 gm DAILY PRN PO CONSTIPATION Last administered on 06:15; Admin Dose 20 GM; Start 05/29/17 at 20:30 Lorazepam (Ativan) 1 mg HS PRN PO SLEEP Last administered on 06/06/17 22:47; Admin Dose 1 MG; Start 05/29/17 at 22:30 Senna (Senokot) 2 tab HS PO Last administered on 06/07/17 20:34; Admin Dose 2 TAB; Start 06/04/17 at 21:00 Metoprolol Succinate (Toprol Xl) 50 mg BID PO Last administered on 06/06/17 20: 36; Admin Dose 50 MG; Start 06/04/17 at 21:00 Isosorbide Mononitrate (Imdur) 30 mg DAILY PO Last administered on 06/07/17 09: 01; Admin Dose 30 MG; Start 06/04/17 at 16:30 Aspirin (Aspirin) 81 mg DAILY PO Last administered on 06/08/17 09:58; Admin Dose 81 MG; Start 06/04/17 at 15:00 Clopidogrel Bisulfate (plaVIX) 75 mg DAILY PO Last administered on 06/08/17 09 :58; Admin Dose 75 MG; Start 06/04/17 at 15:00 Assessment/Plan Additional Assessment/Plan Rehabilitation-Lumbar spinal stenosis with spondylolisthesis status post Lumbar Laminectomy Steady gains current treatment plan Cardiac-followed by cardiology Anemia Diabetes Mellitus type 2 Hypertension Alcoholic Liver Disease CHANTELLE YO MD Jun 08, 2017 10:36
[2017-06-08 12:00] VITALS: BP 125/56
--- NOTE | 2017-06-08 13:17 | PN ---
Date/Time of Note Date/Time of Note DATE: 06/07/17 TIME: 1809 Late Entry Assessment/Plan VTE Prophylaxis VTE Prophylaxis Intervention: ambulation, SCD's Lines/Catheters IV [facility]ter [facility]from [facility] Urinary Cath still in place: No Assessment/Plan Problems: (1) Hyperkalemia Status: Resolved Comment: Resolved spontaneously. (2) Coronary artery disease Status: Chronic Comment: Spect scan only w/ fixed unreversible defect w/ NL wall motion. O/w ( -) Qualifiers: Coronary Disease-Associated Artery/Lesion type: [place] artery [place] vs. transplanted heart: [place] heart Associated angina: without angina Qualified Code: I25.10 - Coronary artery disease involving [place] coronary artery of [place] heart without angina pectoris (3) Essential (primary) hypertension Status: Chronic Comment: Good control. Cont. current regimen (4) Type 2 diabetes mellitus without complications Status: Chronic Comment: Good glycemic control. Cont. metformin Qualifiers: Diabetes mellitus long-term insulin use: without long-term use Qualified Code: E11.9 - Type 2 diabetes mellitus without complication, without long-term current use of insulin (5) Leukocytosis Status: Acute Comment: Mild and ongoing. Associated w/ thrombocytosis. Possible mild myeloproliferative d/o. Qualifiers: Leukocytosis type: unspecified Qualified Code: D72.829 - Leukocytosis, unspecified type (6) Lumbar spinal stenosis Status: Resolved Comment: Cont. rehab. Ready for d/c in 2 days. Pt. has what he needs at home. Subjective 24 Hr Interval Summary Constitutional: improved, no complaints Respiratory: no complaints Cardiovascular: no complaints (s/p spect scan today. Feels a little tired but o/w well. No complaints) Gastrointestinal: no complaints Genitourinary: no complaints Musculoskeletal: back pain (mild, managable) Neurologic: no complaints Exam/Review of Systems Vital Signs Vitals VS - Last 72 Hours, by Label Date Time Temp Pulse Resp B/P Pulse Ox O2 Delivery O2 Flow Rate FiO2 06/08/17 07:30 98.3 87 18 101/61 97 06/08/17 02:00 98.3 85 18 118/60 95 06/07/17 20:39 96 110/61 06/07/17 20:02 98.7 90 18 97/61 97 06/07/17 07:28 97.9 57 18 141/67 96 06/07/17 03:59 97.8 88 18 127/65 96 06/06/17 20:00 97.8 83 18 137/69 98 06/06/17 08:07 98.2 107 18 143/84 98 06/06/17 02:00 98.0 90 18 109/62 98 06/05/17 20:00 98.2 99 18 91/60 97 06/05/17 17:00 125/75 06/05/17 14:00 97.8 101 20 107/60 94 Vital Signs Date Time Temp Pulse Resp B/P Pulse Ox O2 Delivery O2 Flow Rate FiO2 06/08/17 07:30 98.3 87 18 101/61 97 Intake and Output 06/07/17 06/07/17 06/08/17 15:00 23:00 07:00 Intake Total 360 ml 360 ml 740 ml Output Total 950 ml Balance -590 ml 360 ml 740 ml Exam Constitutional: alert, oriented, well developed Psych: nl mood/affect, no complaints Respiratory: clear to auscultation, normal air movement Cardiovascular: nl pulses, regular rate and rhythm, No edema, No murmurs/extra sounds, No rub Gastrointestinal: bowel sounds, nl liver, spleen, non-tender, soft, No mass, No rebound or guarding Musculoskeletal: nl extremities to inspection Extremities: normal pulses, No clubbing, No cyanosis, No edema Neurological: ONCOLOGY PHARMACIST II-XII intact, nl mental status, nl speech, nl strength Additional Comments Bedside Glucose - 72 Hours Test 06/05/17 17:41 06/06/17 07:54 06/06/17 17:28 06/07/17 07:44 Bedside Glucose 144mg/dL (70-220) 130mg/dL (70-220) 126mg/dL (70-220) 115mg/dL (70-220) Test 06/07/17 10:27 06/07/17 13:38 06/07/17 17:26 06/08/17 08:21 Bedside Glucose 132mg/dL (70-220) 149mg/dL (70-220) 161mg/dL (70-220) 127mg/dL (70-220) Test 06/08/17 12:16 Bedside Glucose 166mg/dL (70-220) Results Result Diagram: 06/07/17 0647 06/07/17 0647 Results 24 hrs Laboratory Tests Test 06/07/17 13:38 06/07/17 17:26 06/08/17 08:21 06/08/17 12:16 Bedside Glucose 149 161 127 166 Medications Medications Current Medications Acetaminophen/ Hydrocodone Bitart ([place] (5/325)) 1 tab Q4H PRN PO PAIN LEVEL 1 -5 Last administered on 06/02/17 20:26; Admin Dose 1 TAB; Start 05/26/17 at 17: 57 Acetaminophen/ Hydrocodone Bitart ([place] (5/325)) 2 tab Q4H PRN PO PAIN LEVEL 6 -10 Last administered on 06/08/17 08:24; Admin Dose 2 TAB; Start 05/26/17 at 17 :57 Ondansetron HCl (Zofran Inj) 4 mg Q6H PRN IV NAUSEA AND/OR VOMITING; Start at 17:57 Acetaminophen (Tylenol Tab) 650 mg Q4H PRN PO TEMP GREATER THAN 101F/HAILE/PAIN; Start 05/26/17 at 17:57 Lisinopril (Zestril) 10 mg DAILY PO Last administered on 06/07/17 09:01; Admin Dose 10 MG; Start 05/26/17 at 17:57 Glucose (Glutose) 15 gm Q15M PRN PO DECREASED GLUCOSE; Start 05/26/17 at 17:57 Glucose (Glutose) 22.5 gm Q15M PRN PO DECREASED GLUCOSE; Start 05/26/17 at 17: 57 Dextrose (D50w Syringe) 25 ml Q15M PRN IV DECREASED GLUCOSE; Start 05/26/17 at 17:57 Dextrose (D50w Syringe) 50 ml Q15M PRN IV DECREASED GLUCOSE; Start 05/26/17 at 17:57 Glucagon (Glucagen) 1 mg Q15M PRN IM DECREASED GLUCOSE; Start 05/26/17 at 17:57 Glucose (Glutose) 15 gm Q15M PRN BUCCAL DECREASED GLUCOSE; Start 05/26/17 at 17 :57 Hydromorphone HCl (Dilaudid) 1 mg Q4H PRN IV PAIN Last administered on 10:03; Admin Dose 1 MG; Start 05/26/17 at 18:30 Docusate Sodium (Colace) 100 mg BID PO Last administered on 06/08/17 09:57; Admin Dose 100 MG; Start 05/29/17 at 21:00 Bisacodyl (Dulcolax Supp) 10 mg DAILY PRN [place] CONSTIPATION; Start 05/29/17 at 20 :30 Magnesium Hydroxide (Milk Of Mag) 30 ml BID PRN PO CONSTIPATION; Start at 20:30 Lactulose (Enulose) 20 gm DAILY PRN PO CONSTIPATION Last administered on 06:15; Admin Dose 20 GM; Start 05/29/17 at 20:30 Lorazepam (Ativan) 1 mg HS PRN PO SLEEP Last administered on 06/06/17 22:47; Admin Dose 1 MG; Start 05/29/17 at 22:30 Senna (Senokot) 2 tab HS PO Last administered on 06/07/17 20:34; Admin Dose 2 TAB; Start 06/04/17 at 21:00 Metoprolol Succinate (Toprol Xl) 50 mg BID PO Last administered on 06/06/17 20: 36; Admin Dose 50 MG; Start 06/04/17 at 21:00 Isosorbide Mononitrate (Imdur) 30 mg DAILY PO Last administered on 06/07/17 09: 01; Admin Dose 30 MG; Start 06/04/17 at 16:30 Aspirin (Aspirin) 81 mg DAILY PO Last administered on 06/08/17 09:58; Admin Dose 81 MG; Start 06/04/17 at 15:00 Clopidogrel Bisulfate (plaVIX) 75 mg DAILY PO Last administered on 06/08/17 09 :58; Admin Dose 75 MG; Start 06/04/17 at 15:00 SAMANTA FRAIRE MD Jun 08, 2017 13:16
[2017-06-08] MEDS: PRAMIPEXOLE 0.125 MG TAB PO SCH (18:33)
[2017-06-08 20:00] VITALS: BP 122/71; RESP 18
--- NOTE | 2017-06-08 20:12 | CONS ---
Date/Time of Note Date/Time of Note DATE: 06/08/17 TIME: 20:06 Assessment/Plan Assessment/Plan Chief Complaint/Hosp Course IMP: 1.Positive troponin-minimal elevation. No current chest pain. Now s/p lexiscan revealing scar but no active ischemia 2.HTN-on lower end 3.H/O PTCA/stent 10 years prior 4.Lumbar spinal stenosis s/p surgery 5.anemia 6.DM Recc: -At rehab -Continue BB/oral nitrates as tolerated and will decrease dose to allow patient to better tolerate -Continue asa/plavix -Follow BS closely Problems: Consultation Date/Type/Reason Admit Date/Time May 26, 2017 at 17:11 Initial Consult Date 06/04/2017 Type of Consultation: cardiology Reason for Consultation cad/nstemi Referring Provider: NOREEN LINDSAY MD Exam/Review of Systems Vital Signs Vitals Vital Signs Date Time Temp Pulse Resp B/P Pulse Ox O2 Delivery O2 Flow Rate FiO2 06/08/17 07:30 98.3 87 18 101/61 97 Intake and Output 06/07/17 06/07/17 06/08/17 15:00 23:00 07:00 Intake Total 360 ml 360 ml 740 ml Output Total 950 ml Balance -590 ml 360 ml 740 ml Exam Review of Systems: CONSTITUTIONAL: No fevers, chills. PULMONARY: No sob CARDIOVASCULAR: No chest pain/palpitations GASTROINTESTINAL: No nausea/vomiting. GENITOURINARY: No hematuria/dysuria. MUSCULOSKELETAL: No myagias/arthalgias. PSYCHIATRIC: The patient denies depression. NEUROLOGIC: somewhat lethargic Constitutional: other (sleeping, weasily arousable) Psych: no complaints Head: normocephalic ENMT: mucosa pink and moist Neck: jvd (8 cm water), supple Respiratory: clear to auscultation Cardiovascular: regular rate and rhythm Gastrointestinal: non-tender, soft Musculoskeletal: muscle weakness (mild generalized) Extremities: edema (none) Neurological: other (No focal deficits) Results Result Diagram: 06/07/17 0647 06/07/17 0647 Results 24 hrs Laboratory Tests Test 06/08/17 08:21 06/08/17 12:16 06/08/17 17:43 Bedside Glucose 127 166 113 Medications Medications Current Medications Acetaminophen/ Hydrocodone Bitart ([place] (5/325)) 1 tab Q4H PRN PO PAIN LEVEL 1 -5 Last administered on 06/02/17 20:26; Admin Dose 1 TAB; Start 05/26/17 at 17: 57 Acetaminophen/ Hydrocodone Bitart ([place] (5/325)) 2 tab Q4H PRN PO PAIN LEVEL 6 -10 Last administered on 06/08/17 08:24; Admin Dose 2 TAB; Start 05/26/17 at 17 :57 Ondansetron HCl (Zofran Inj) 4 mg Q6H PRN IV NAUSEA AND/OR VOMITING; Start at 17:57 Acetaminophen (Tylenol Tab) 650 mg Q4H PRN PO TEMP GREATER THAN 101F/HAILE/PAIN; Start 05/26/17 at 17:57 Lisinopril (Zestril) 10 mg DAILY PO Last administered on 06/07/17 09:01; Admin Dose 10 MG; Start 05/26/17 at 17:57 Glucose (Glutose) 15 gm Q15M PRN PO DECREASED GLUCOSE; Start 05/26/17 at 17:57 Glucose (Glutose) 22.5 gm Q15M PRN PO DECREASED GLUCOSE; Start 05/26/17 at 17: 57 Dextrose (D50w Syringe) 25 ml Q15M PRN IV DECREASED GLUCOSE; Start 05/26/17 at 17:57 Dextrose (D50w Syringe) 50 ml Q15M PRN IV DECREASED GLUCOSE; Start 05/26/17 at 17:57 Glucagon (Glucagen) 1 mg Q15M PRN IM DECREASED GLUCOSE; Start 05/26/17 at 17:57 Glucose (Glutose) 15 gm Q15M PRN BUCCAL DECREASED GLUCOSE; Start 05/26/17 at 17 :57 Hydromorphone HCl (Dilaudid) 1 mg Q4H PRN IV PAIN Last administered on 18:33; Admin Dose 1 MG; Start 05/26/17 at 18:30 Docusate Sodium (Colace) 100 mg BID PO Last administered on 06/08/17 09:57; Admin Dose 100 MG; Start 05/29/17 at 21:00 Bisacodyl (Dulcolax Supp) 10 mg DAILY PRN [place] CONSTIPATION; Start 05/29/17 at 20 :30 Magnesium Hydroxide (Milk Of Mag) 30 ml BID PRN PO CONSTIPATION; Start at 20:30 Lactulose (Enulose) 20 gm DAILY PRN PO CONSTIPATION Last administered on 06:15; Admin Dose 20 GM; Start 05/29/17 at 20:30 Lorazepam (Ativan) 1 mg HS PRN PO SLEEP Last administered on 06/06/17 22:47; Admin Dose 1 MG; Start 05/29/17 at 22:30 Senna (Senokot) 2 tab HS PO Last administered on 06/07/17 20:34; Admin Dose 2 TAB; Start 06/04/17 at 21:00 Metoprolol Succinate (Toprol Xl) 50 mg BID PO Last administered on 06/06/17 20: 36; Admin Dose 50 MG; Start 06/04/17 at 21:00 Isosorbide Mononitrate (Imdur) 30 mg DAILY PO Last administered on 06/07/17 09: 01; Admin Dose 30 MG; Start 06/04/17 at 16:30 Aspirin (Aspirin) 81 mg DAILY PO Last administered on 06/08/17 09:58; Admin Dose 81 MG; Start 06/04/17 at 15:00 Clopidogrel Bisulfate (plaVIX) 75 mg DAILY PO Last administered on 06/08/17 09 :58; Admin Dose 75 MG; Start 06/04/17 at 15:00 KAHLIL BROWNE Jun 08, 2017 20:11
--- NOTE | 2017-06-08 20:39 | PN ---
Date/Time of Note Date/Time of Note DATE: 06/08/17 TIME: 20:32 Assessment/Plan VTE Prophylaxis VTE Prophylaxis Intervention: ambulation, SCD's Lines/Catheters IV Catheter Type (from Nrs): [facility] Urinary Cath still in place: No Assessment/Plan Problems: (1) Essential (primary) hypertension Status: Chronic Comment: Good control on current regimen. Will continue. (2) Type 2 diabetes mellitus without complications Status: Chronic Comment: Good control w/ metformin alone. Will continue. Qualifiers: Diabetes mellitus fci insulin use: without fci use Qualified Code: E11.9 - Type 2 diabetes mellitus without complication, without long-term current use of insulin (3) Coronary artery disease Status: Chronic Comment: (-) spect scan. Cardiology following. Qualifiers: Coronary Disease-Associated Artery/Lesion type: [place] artery [place] vs. transplanted heart: [place] heart Associated angina: without angina Qualified Code: I25.10 - Coronary artery disease involving [place] coronary artery of [place] heart without angina pectoris (4) Leukocytosis Status: Acute Comment: Likely mild myeloproliferative disorder Qualifiers: Leukocytosis type: unspecified Qualified Code: D72.829 - Leukocytosis, unspecified type (5) Lumbar spinal stenosis Status: Resolved Comment: Cont. rehab Subjective 24 Hr Interval Summary Constitutional: no complaints Respiratory: no complaints Cardiovascular: no complaints Gastrointestinal: no complaints Genitourinary: no complaints Musculoskeletal: no complaints Neurologic: no complaints Exam/Review of Systems Vital Signs Vitals VS - Last 72 Hours, by Label Date Time Temp Pulse Resp B/P Pulse Ox O2 Delivery O2 Flow Rate FiO2 06/08/17 07:30 98.3 87 18 101/61 97 06/08/17 02:00 98.3 85 18 118/60 95 06/07/17 20:39 96 110/61 06/07/17 20:02 98.7 90 18 97/61 97 06/07/17 07:28 97.9 57 18 141/67 96 06/07/17 03:59 97.8 88 18 127/65 96 06/06/17 20:00 97.8 83 18 137/69 98 06/06/17 08:07 98.2 107 18 143/84 98 06/06/17 02:00 98.0 90 18 109/62 98 Vital Signs Date Time Temp Pulse Resp B/P Pulse Ox O2 Delivery O2 Flow Rate FiO2 06/08/17 07:30 98.3 87 18 101/61 97 Intake and Output 06/07/17 06/07/17 06/08/17 15:00 23:00 07:00 Intake Total 360 ml 360 ml 740 ml Output Total 950 ml Balance -590 ml 360 ml 740 ml Exam Constitutional: alert, oriented, well developed Psych: nl mood/affect, no complaints Respiratory: clear to auscultation, normal air movement Cardiovascular: nl pulses, regular rate and rhythm, No edema, No murmurs/extra sounds, No rub Gastrointestinal: bowel sounds, nl liver, spleen, non-tender, soft, No mass, No rebound or guarding Musculoskeletal: nl extremities to inspection Extremities: normal pulses, No clubbing, No cyanosis, No edema Neurological: VASCULAR PHYSICIAN II-XII intact, nl mental status, nl speech, nl strength Additional Comments Bedside Glucose - 72 Hours Test 06/06/17 07:54 06/06/17 17:28 06/07/17 07:44 06/07/17 10:27 Bedside Glucose 130mg/dL (70-220) 126mg/dL (70-220) 115mg/dL (70-220) 132mg/dL (70-220) Test 06/07/17 13:38 06/07/17 17:26 06/08/17 08:21 06/08/17 12:16 Bedside Glucose 149mg/dL (70-220) 161mg/dL (70-220) 127mg/dL (70-220) 166mg/dL (70-220) Test 06/08/17 17:43 Bedside Glucose 113mg/dL (70-220) Results Result Diagram: 06/07/17 0647 06/07/17 0647 Results 24 hrs Laboratory Tests Test 06/08/17 08:21 06/08/17 12:16 06/08/17 17:43 Bedside Glucose 127 166 113 Medications Medications Current Medications Acetaminophen/ Hydrocodone Bitart ([place] (5/325)) 1 tab Q4H PRN PO PAIN LEVEL 1 -5 Last administered on 06/02/17 20:26; Admin Dose 1 TAB; Start 05/26/17 at 17: 57 Acetaminophen/ Hydrocodone Bitart ([place] (5/325)) 2 tab Q4H PRN PO PAIN LEVEL 6 -10 Last administered on 06/08/17 08:24; Admin Dose 2 TAB; Start 05/26/17 at 17 :57 Ondansetron HCl (Zofran Inj) 4 mg Q6H PRN IV NAUSEA AND/OR VOMITING; Start at 17:57 Acetaminophen (Tylenol Tab) 650 mg Q4H PRN PO TEMP GREATER THAN 101F/HAILE/PAIN; Start 05/26/17 at 17:57 Glucose (Glutose) 15 gm Q15M PRN PO DECREASED GLUCOSE; Start 05/26/17 at 17:57 Glucose (Glutose) 22.5 gm Q15M PRN PO DECREASED GLUCOSE; Start 05/26/17 at 17: 57 Dextrose (D50w Syringe) 25 ml Q15M PRN IV DECREASED GLUCOSE; Start 05/26/17 at 17:57 Dextrose (D50w Syringe) 50 ml Q15M PRN IV DECREASED GLUCOSE; Start 05/26/17 at 17:57 Glucagon (Glucagen) 1 mg Q15M PRN IM DECREASED GLUCOSE; Start 05/26/17 at 17:57 Glucose (Glutose) 15 gm Q15M PRN BUCCAL DECREASED GLUCOSE; Start 05/26/17 at 17 :57 Hydromorphone HCl (Dilaudid) 1 mg Q4H PRN IV PAIN Last administered on 18:33; Admin Dose 1 MG; Start 05/26/17 at 18:30 Docusate Sodium (Colace) 100 mg BID PO Last administered on 06/08/17 09:57; Admin Dose 100 MG; Start 05/29/17 at 21:00 Bisacodyl (Dulcolax Supp) 10 mg DAILY PRN [place] CONSTIPATION; Start 05/29/17 at 20 :30 Magnesium Hydroxide (Milk Of Mag) 30 ml BID PRN PO CONSTIPATION; Start at 20:30 Lactulose (Enulose) 20 gm DAILY PRN PO CONSTIPATION Last administered on 06:15; Admin Dose 20 GM; Start 05/29/17 at 20:30 Lorazepam (Ativan) 1 mg HS PRN PO SLEEP Last administered on 06/06/17 22:47; Admin Dose 1 MG; Start 05/29/17 at 22:30 Senna (Senokot) 2 tab HS PO Last administered on 06/07/17 20:34; Admin Dose 2 TAB; Start 06/04/17 at 21:00 Isosorbide Mononitrate (Imdur) 30 mg DAILY PO Last administered on 06/07/17 09: 01; Admin Dose 30 MG; Start 06/04/17 at 16:30 Aspirin (Aspirin) 81 mg DAILY PO Last administered on 06/08/17 09:58; Admin Dose 81 MG; Start 06/04/17 at 15:00 Clopidogrel Bisulfate (plaVIX) 75 mg DAILY PO Last administered on 06/08/17 09 :58; Admin Dose 75 MG; Start 06/04/17 at 15:00 Lisinopril (Zestril) 5 mg DAILY PO ; Start 06/09/17 at 09:00 Metoprolol Succinate (Toprol Xl) 25 mg BID PO ; Start 06/08/17 at 21:00 SAMANTA FRAIRE MD Jun 08, 2017 20:39
[2017-06-08] MEDS: SENNA TAB PO SCH (22:00)
[2017-06-08] MEDS: METOPROLOL (XL) 25 MG TAB PO SCH (22:05)
[2017-06-08] MEDS: LORAZEPAM 1 MG TAB PO PRN (22:08)
[2017-06-09 03:46] VITALS: BP 127/69; RESP 18
[2017-06-09] MEDS: ACCU-CHEK XX SCH ×2 (07:05→17:43)
[2017-06-09] MEDS: INSULIN ASPART [NOVOLOG] 3 ML PEN SC SCH ×2 (07:05→17:05)
[2017-06-09] MEDS: HYDROmorphONE 1 MG/ML SYG IV PRN ×3 (07:26→20:37)
[2017-06-09 07:58] VITALS: BP 123/70; RESP 18
[2017-06-09] MEDS: CLOPIDOGREL 75 MG TAB PO SCH (08:40)
[2017-06-09] MEDS: ISOSORBIDE MONONITRATE(SR)30 MG TAB PO SCH (08:40)
[2017-06-09] MEDS: METOPROLOL (XL) 25 MG TAB PO SCH ×2 (08:41→20:35)
[2017-06-09] MEDS: DOCUSATE SODIUM 100 MG CAP PO SCH ×2 (08:42→20:35)
[2017-06-09] MEDS: LISINOPRIL 5 MG TAB PO SCH (08:42)
[2017-06-09] MEDS: metFORMIN 500 MG TAB PO SCH ×2 (08:42→17:43)
[2017-06-09] MEDS: ASPIRIN 81 MG TAB PO SCH (08:43)
[2017-06-09] MEDS ORDERED: LIDOCAINE 1% (STERILE-PAK) 30 ML INJ ONE (08:54)
[2017-06-09] MEDS: HYDROCODONE/APAP (5/325) TAB PO PRN ×2 (13:13→22:05)
--- NOTE | 2017-06-09 14:42 | CONS ---
Date/Time of Note Date/Time of Note DATE: 06/09/17 TIME: 14:41 Consult Date/Type/Reason Admit Date/Time May 26, 2017 at 17:11 Type of Consultation: cardiology Ordering Provider: NOREEN LINDSAY MD Subjective Patient like the knee braces Objective Lungs clear abdomen soft standby assist ambulation Vital Signs Date Time Temp Pulse Resp B/P Pulse Ox O2 Delivery O2 Flow Rate FiO2 06/09/17 07:58 98.7 87 18 123/70 96 Intake and Output 06/08/17 06/08/17 06/09/17 15:00 23:00 07:00 Intake Total 990 ml 880 ml Output Total 350 ml 450 ml Balance 640 ml 430 ml Results/Medications Result Diagram: 06/07/17 0647 06/07/17 0647 Results 24 hrs Laboratory Tests Test 06/08/17 17:43 06/09/17 08:04 Bedside Glucose 113 120 Medications Current Medications Acetaminophen/ Hydrocodone Bitart ([place] (5/325)) 1 tab Q4H PRN PO PAIN LEVEL 1 -5 Last administered on 06/02/17 20:26; Admin Dose 1 TAB; Start 05/26/17 at 17: 57 Acetaminophen/ Hydrocodone Bitart ([place] (5/325)) 2 tab Q4H PRN PO PAIN LEVEL 6 -10 Last administered on 06/09/17 13:13; Admin Dose 2 TAB; Start 05/26/17 at 17 :57 Ondansetron HCl (Zofran Inj) 4 mg Q6H PRN IV NAUSEA AND/OR VOMITING; Start at 17:57 Acetaminophen (Tylenol Tab) 650 mg Q4H PRN PO TEMP GREATER THAN 101F/HAILE/PAIN; Start 05/26/17 at 17:57 Glucose (Glutose) 15 gm Q15M PRN PO DECREASED GLUCOSE; Start 05/26/17 at 17:57 Glucose (Glutose) 22.5 gm Q15M PRN PO DECREASED GLUCOSE; Start 05/26/17 at 17: 57 Dextrose (D50w Syringe) 25 ml Q15M PRN IV DECREASED GLUCOSE; Start 05/26/17 at 17:57 Dextrose (D50w Syringe) 50 ml Q15M PRN IV DECREASED GLUCOSE; Start 05/26/17 at 17:57 Glucagon (Glucagen) 1 mg Q15M PRN IM DECREASED GLUCOSE; Start 05/26/17 at 17:57 Glucose (Glutose) 15 gm Q15M PRN BUCCAL DECREASED GLUCOSE; Start 05/26/17 at 17 :57 Hydromorphone HCl (Dilaudid) 1 mg Q4H PRN IV PAIN Last administered on 07:26; Admin Dose 1 MG; Start 05/26/17 at 18:30 Docusate Sodium (Colace) 100 mg BID PO Last administered on 06/09/17 08:42; Admin Dose 100 MG; Start 05/29/17 at 21:00 Bisacodyl (Dulcolax Supp) 10 mg DAILY PRN [place] CONSTIPATION; Start 05/29/17 at 20 :30 Magnesium Hydroxide (Milk Of Mag) 30 ml BID PRN PO CONSTIPATION; Start at 20:30 Lactulose (Enulose) 20 gm DAILY PRN PO CONSTIPATION Last administered on 06:15; Admin Dose 20 GM; Start 05/29/17 at 20:30 Lorazepam (Ativan) 1 mg HS PRN PO SLEEP Last administered on 06/08/17 22:08; Admin Dose 1 MG; Start 05/29/17 at 22:30 Senna (Senokot) 2 tab HS PO Last administered on 06/07/17 20:34; Admin Dose 2 TAB; Start 06/04/17 at 21:00 Isosorbide Mononitrate (Imdur) 30 mg DAILY PO Last administered on 06/09/17 08 :40; Admin Dose 30 MG; Start 06/04/17 at 16:30 Aspirin (Aspirin) 81 mg DAILY PO Last administered on 06/09/17 08:43; Admin Dose 81 MG; Start 06/04/17 at 15:00 Clopidogrel Bisulfate (plaVIX) 75 mg DAILY PO Last administered on 06/09/17 08 :40; Admin Dose 75 MG; Start 06/04/17 at 15:00 Lisinopril (Zestril) 5 mg DAILY PO Last administered on 06/09/17 08:42; Admin Dose 5 MG; Start 06/09/17 at 09:00 Metoprolol Succinate (Toprol Xl) 25 mg BID PO Last administered on 06/09/17 08 :41; Admin Dose 25 MG; Start 06/08/17 at 21:00 Assessment/Plan Additional Assessment/Plan Rehabilitation-Lumbar spinal stenosis with spondylolisthesis status post Lumbar Laminectomy Much better today continue current treatment plan Cardiac-followed by cardiology Anemia Diabetes Mellitus type 2 Hypertension Alcoholic Liver Disease CHANTELLE YO MD Jun 09, 2017 14:42
--- NOTE | 2017-06-09 15:27 | CONS ---
Date/Time of Note Date/Time of Note DATE: 06/09/17 TIME: 15:24 Assessment/Plan Assessment/Plan Chief Complaint/Hosp Course IMP: 1.Positive troponin-minimal elevation. No current chest pain. Now s/p lexiscan revealing scar but no active ischemia/NL EF 2.HTN-currently well controlled and tolerating medications after deecrease in doses 3.H/O PTCA/stent 10 years prior 4.Lumbar spinal stenosis s/p surgery 5.anemia 6.DM Recc: -PT/OT -Continue BB/oral nitrates as tolerated at current bdose -Continue asa/plavix -Follow BS closely Problems: Consultation Date/Type/Reason Admit Date/Time May 26, 2017 at 17:11 Initial Consult Date 06/04/2017 Type of Consultation: cardiology Reason for Consultation HTN/cad Referring Provider: NOREEN LINDSAY MD Exam/Review of Systems Vital Signs Vitals Vital Signs Date Time Temp Pulse Resp B/P Pulse Ox O2 Delivery O2 Flow Rate FiO2 06/09/17 07:58 98.7 87 18 123/70 96 Intake and Output 06/08/17 06/08/17 06/09/17 15:00 23:00 07:00 Intake Total 990 ml 880 ml Output Total 350 ml 450 ml Balance 640 ml 430 ml Exam Review of Systems: CONSTITUTIONAL: No fevers, chills. PULMONARY: No sob CARDIOVASCULAR: No chest pain/palpitations GASTROINTESTINAL: No nausea/vomiting. GENITOURINARY: No hematuria/dysuria. MUSCULOSKELETAL: No myagias/arthalgias. PSYCHIATRIC: The patient denies depression. NEUROLOGIC: No weakness Constitutional: alert Psych: no complaints Head: normocephalic ENMT: mucosa pink and moist Neck: jvd (8-9 cm water), supple Respiratory: diminished breath sounds Cardiovascular: regular rate and rhythm Gastrointestinal: non-tender, soft Musculoskeletal: muscle tone (normal) Extremities: edema Neurological: other (No focal deficits) Results Result Diagram: 06/07/17 0647 06/07/17 0647 Results 24 hrs Laboratory Tests Test 06/08/17 17:43 06/09/17 08:04 Bedside Glucose 113 120 Medications Medications Current Medications Acetaminophen/ Hydrocodone Bitart ([place] (5/325)) 1 tab Q4H PRN PO PAIN LEVEL 1 -5 Last administered on 06/02/17 20:26; Admin Dose 1 TAB; Start 05/26/17 at 17: 57 Acetaminophen/ Hydrocodone Bitart ([place] (5/325)) 2 tab Q4H PRN PO PAIN LEVEL 6 -10 Last administered on 06/09/17 13:13; Admin Dose 2 TAB; Start 05/26/17 at 17 :57 Ondansetron HCl (Zofran Inj) 4 mg Q6H PRN IV NAUSEA AND/OR VOMITING; Start at 17:57 Acetaminophen (Tylenol Tab) 650 mg Q4H PRN PO TEMP GREATER THAN 101F/HAILE/PAIN; Start 05/26/17 at 17:57 Glucose (Glutose) 15 gm Q15M PRN PO DECREASED GLUCOSE; Start 05/26/17 at 17:57 Glucose (Glutose) 22.5 gm Q15M PRN PO DECREASED GLUCOSE; Start 05/26/17 at 17: 57 Dextrose (D50w Syringe) 25 ml Q15M PRN IV DECREASED GLUCOSE; Start 05/26/17 at 17:57 Dextrose (D50w Syringe) 50 ml Q15M PRN IV DECREASED GLUCOSE; Start 05/26/17 at 17:57 Glucagon (Glucagen) 1 mg Q15M PRN IM DECREASED GLUCOSE; Start 05/26/17 at 17:57 Glucose (Glutose) 15 gm Q15M PRN BUCCAL DECREASED GLUCOSE; Start 05/26/17 at 17 :57 Hydromorphone HCl (Dilaudid) 1 mg Q4H PRN IV PAIN Last administered on 07:26; Admin Dose 1 MG; Start 05/26/17 at 18:30 Docusate Sodium (Colace) 100 mg BID PO Last administered on 06/09/17 08:42; Admin Dose 100 MG; Start 05/29/17 at 21:00 Bisacodyl (Dulcolax Supp) 10 mg DAILY PRN [place] CONSTIPATION; Start 05/29/17 at 20 :30 Magnesium Hydroxide (Milk Of Mag) 30 ml BID PRN PO CONSTIPATION; Start at 20:30 Lactulose (Enulose) 20 gm DAILY PRN PO CONSTIPATION Last administered on 06:15; Admin Dose 20 GM; Start 05/29/17 at 20:30 Lorazepam (Ativan) 1 mg HS PRN PO SLEEP Last administered on 06/08/17 22:08; Admin Dose 1 MG; Start 05/29/17 at 22:30 Senna (Senokot) 2 tab HS PO Last administered on 06/07/17 20:34; Admin Dose 2 TAB; Start 06/04/17 at 21:00 Isosorbide Mononitrate (Imdur) 30 mg DAILY PO Last administered on 06/09/17 08 :40; Admin Dose 30 MG; Start 06/04/17 at 16:30 Aspirin (Aspirin) 81 mg DAILY PO Last administered on 06/09/17 08:43; Admin Dose 81 MG; Start 06/04/17 at 15:00 Clopidogrel Bisulfate (plaVIX) 75 mg DAILY PO Last administered on 06/09/17 08 :40; Admin Dose 75 MG; Start 06/04/17 at 15:00 Lisinopril (Zestril) 5 mg DAILY PO Last administered on 06/09/17 08:42; Admin Dose 5 MG; Start 06/09/17 at 09:00 Metoprolol Succinate (Toprol Xl) 25 mg BID PO Last administered on 06/09/17 08 :41; Admin Dose 25 MG; Start 06/08/17 at 21:00 KAHLIL BROWNE Jun 09, 2017 15:27
[2017-06-09] MEDS: PRAMIPEXOLE 0.125 MG TAB PO SCH (17:42)
--- NOTE | 2017-06-09 17:54 | PN ---
Date/Time of Note Date/Time of Note DATE: 06/09/17 TIME: 17:51 Assessment/Plan VTE Prophylaxis VTE Prophylaxis Intervention: ambulation, SCD's Lines/Catheters [facility] Urinary Cath still in place: No Assessment/Plan Problems: (1) Coronary artery disease Status: Chronic Comment: (-) Spect scan w/ only irrevrsible defect. Cardiology following Qualifiers: Coronary Disease-Associated Artery/Lesion type: [place] artery [place] vs. transplanted heart: [place] heart Associated angina: without angina Qualified Code: I25.10 - Coronary artery disease involving [place] coronary artery of [place] heart without angina pectoris (2) Essential (primary) hypertension Status: Chronic Comment: Controlled. Cont. current regimen. (3) Type 2 diabetes mellitus without complications Status: Chronic Comment: Controlled. Cont. metformin. Qualifiers: Diabetes mellitus adjunct faculty for medical terminology insulin use: without adjunct faculty for medical terminology use Qualified Code: E11.9 - Type 2 diabetes mellitus without complication, without long-term current use of insulin (4) Leukocytosis Status: Acute Comment: Likely mild myeloproliferative syndrome. Rec. f/u w/ heme as outpt. Qualifiers: Leukocytosis type: unspecified Qualified Code: D72.829 - Leukocytosis, unspecified type (5) Restless leg syndrome Status: Chronic Comment: Controlled w/ lowest dose of mirapex. (6) Lumbar spinal stenosis Status: Resolved Comment: Cont. rehab. Likely d/c home in 72 hours. Subjective 24 Hr Interval Summary Constitutional: improved, no complaints Respiratory: no complaints Cardiovascular: no complaints Gastrointestinal: no complaints Genitourinary: no complaints Musculoskeletal: back pain (mild, radiates down legs significantly when he is laying down and stretches out), No bone/joint pain Neurologic: no complaints Exam/Review of Systems Vital Signs Vitals VS - Last 72 Hours, by Label Date Time Temp Pulse Resp B/P Pulse Ox O2 Delivery O2 Flow Rate FiO2 06/09/17 07:58 98.7 87 18 123/70 96 06/09/17 03:46 98.7 92 18 127/69 95 06/08/17 20:00 98.5 90 18 122/71 98 06/08/17 12:00 125/56 06/08/17 07:30 98.3 87 18 101/61 97 06/08/17 02:00 98.3 85 18 118/60 95 06/07/17 20:39 96 110/61 06/07/17 20:02 98.7 90 18 97/61 97 06/07/17 07:28 97.9 57 18 141/67 96 06/07/17 03:59 97.8 88 18 127/65 96 06/06/17 20:00 97.8 83 18 137/69 98 Vital Signs Date Time Temp Pulse Resp B/P Pulse Ox O2 Delivery O2 Flow Rate FiO2 06/09/17 07:58 98.7 87 18 123/70 96 Intake and Output 06/08/17 06/08/17 06/09/17 15:00 23:00 07:00 Intake Total 990 ml 880 ml Output Total 350 ml 450 ml Balance 640 ml 430 ml Exam Constitutional: alert, oriented, well developed Psych: nl mood/affect, no complaints Respiratory: clear to auscultation, normal air movement Cardiovascular: nl pulses, regular rate and rhythm, No edema, No murmurs/extra sounds, No rub Gastrointestinal: bowel sounds, nl liver, spleen, non-tender, soft, No mass, No rebound or guarding Musculoskeletal: nl extremities to inspection Extremities: normal pulses, No clubbing, No cyanosis, No edema Neurological: [employer] II-XII intact, nl mental status, nl speech, nl strength Additional Comments Bedside Glucose - 72 Hours Test 06/07/17 07:44 06/07/17 10:27 06/07/17 13:38 06/07/17 17:26 Bedside Glucose 115mg/dL (70-220) 132mg/dL (70-220) 149mg/dL (70-220) 161mg/dL (70-220) Test 06/08/17 08:21 06/08/17 12:16 06/08/17 17:43 06/09/17 08:04 Bedside Glucose 127mg/dL (70-220) 166mg/dL (70-220) 113mg/dL (70-220) 120mg/dL (70-220) Test 06/09/17 17:22 Bedside Glucose 121mg/dL (70-220) Results Result Diagram: 06/07/17 0647 06/07/17 0647 Results 24 hrs Laboratory Tests Test 06/09/17 08:04 06/09/17 17:22 Bedside Glucose 120 121 Medications Medications Current Medications Acetaminophen/ Hydrocodone Bitart ([place] (5/325)) 1 tab Q4H PRN PO PAIN LEVEL 1 -5 Last administered on 06/02/17 20:26; Admin Dose 1 TAB; Start 05/26/17 at 17: 57 Acetaminophen/ Hydrocodone Bitart ([place] (5/325)) 2 tab Q4H PRN PO PAIN LEVEL 6 -10 Last administered on 06/09/17 13:13; Admin Dose 2 TAB; Start 05/26/17 at 17 :57 Ondansetron HCl (Zofran Inj) 4 mg Q6H PRN IV NAUSEA AND/OR VOMITING; Start at 17:57 Acetaminophen (Tylenol Tab) 650 mg Q4H PRN PO TEMP GREATER THAN 101F/HAILE/PAIN; Start 05/26/17 at 17:57 Glucose (Glutose) 15 gm Q15M PRN PO DECREASED GLUCOSE; Start 05/26/17 at 17:57 Glucose (Glutose) 22.5 gm Q15M PRN PO DECREASED GLUCOSE; Start 05/26/17 at 17: 57 Dextrose (D50w Syringe) 25 ml Q15M PRN IV DECREASED GLUCOSE; Start 05/26/17 at 17:57 Dextrose (D50w Syringe) 50 ml Q15M PRN IV DECREASED GLUCOSE; Start 05/26/17 at 17:57 Glucagon (Glucagen) 1 mg Q15M PRN IM DECREASED GLUCOSE; Start 05/26/17 at 17:57 Glucose (Glutose) 15 gm Q15M PRN BUCCAL DECREASED GLUCOSE; Start 05/26/17 at 17 :57 Hydromorphone HCl (Dilaudid) 1 mg Q4H PRN IV PAIN Last administered on 15:21; Admin Dose 1 MG; Start 05/26/17 at 18:30 Docusate Sodium (Colace) 100 mg BID PO Last administered on 06/09/17 08:42; Admin Dose 100 MG; Start 05/29/17 at 21:00 Bisacodyl (Dulcolax Supp) 10 mg DAILY PRN [place] CONSTIPATION; Start 05/29/17 at 20 :30 Magnesium Hydroxide (Milk Of Mag) 30 ml BID PRN PO CONSTIPATION; Start at 20:30 Lactulose (Enulose) 20 gm DAILY PRN PO CONSTIPATION Last administered on 06:15; Admin Dose 20 GM; Start 05/29/17 at 20:30 Lorazepam (Ativan) 1 mg HS PRN PO SLEEP Last administered on 06/08/17 22:08; Admin Dose 1 MG; Start 05/29/17 at 22:30 Senna (Senokot) 2 tab HS PO Last administered on 06/07/17 20:34; Admin Dose 2 TAB; Start 06/04/17 at 21:00 Isosorbide Mononitrate (Imdur) 30 mg DAILY PO Last administered on 06/09/17 08 :40; Admin Dose 30 MG; Start 06/04/17 at 16:30 Aspirin (Aspirin) 81 mg DAILY PO Last administered on 06/09/17 08:43; Admin Dose 81 MG; Start 06/04/17 at 15:00 Clopidogrel Bisulfate (plaVIX) 75 mg DAILY PO Last administered on 06/09/17 08 :40; Admin Dose 75 MG; Start 06/04/17 at 15:00 Lisinopril (Zestril) 5 mg DAILY PO Last administered on 06/09/17 08:42; Admin Dose 5 MG; Start 06/09/17 at 09:00 Metoprolol Succinate (Toprol Xl) 25 mg BID PO Last administered on 06/09/17 08 :41; Admin Dose 25 MG; Start 06/08/17 at 21:00 SAMANTA FRAIRE MD Jun 09, 2017 17:54
[2017-06-09 20:00] VITALS: BP 114/59; RESP 18
[2017-06-09] MEDS: SENNA TAB PO SCH (20:35)
[2017-06-09] MEDS: LORAZEPAM 1 MG TAB PO PRN (22:05)
[2017-06-09] MEDS: LACTULOSE 30ML CUP PO PRN (22:09)
[2017-06-10 02:00] VITALS: BP 118/71; RESP 18
[2017-06-10] MEDS: HYDROmorphONE 1 MG/ML SYG IV PRN ×3 (04:32→21:13)
[2017-06-10] MEDS: HYDROCODONE/APAP (5/325) TAB PO PRN ×2 (07:04→18:48)
[2017-06-10] MEDS: INSULIN ASPART [NOVOLOG] 3 ML PEN SC SCH ×2 (07:05→17:05)
[2017-06-10 07:30] VITALS: BP 115/59; RESP 20
[2017-06-10] MEDS: ACCU-CHEK XX SCH ×2 (07:58→17:39)
[2017-06-10] MEDS: metFORMIN 500 MG TAB PO SCH ×2 (08:22→17:42)
[2017-06-10] MEDS: CLOPIDOGREL 75 MG TAB PO SCH (08:23)
[2017-06-10] MEDS: METOPROLOL (XL) 25 MG TAB PO SCH ×2 (08:23→21:13)
[2017-06-10] MEDS: ASPIRIN 81 MG TAB PO SCH (08:23)
[2017-06-10] MEDS: LISINOPRIL 5 MG TAB PO SCH (08:23)
[2017-06-10] MEDS: DOCUSATE SODIUM 100 MG CAP PO SCH ×2 (08:23→21:12)
[2017-06-10] MEDS: ISOSORBIDE MONONITRATE(SR)30 MG TAB PO SCH (08:24)
--- NOTE | 2017-06-10 10:24 | PN ---
Date/Time of Note Date/Time of Note DATE: 06/10/17 TIME: 10:23 Assessment/Plan VTE Prophylaxis VTE Prophylaxis Intervention: SCD's, other Lines/Catheters IV Catheter Type (from Nrsg): Saline Lock Urinary Cath still in place: No Assessment/Plan Assessment/Plan 1. Lumbar spinal stenosis with neurogenic claudication, status post L4-5 bilateral laminectomy, medial facetectomy, and foraminotomy, with impaired mobility/gait/ADLs. Continue PT/OT. SPV for transfers and gait 200ft with FWW. Continue surgical site care. Spinal precautions. 2. Acute post operative pain with underlying chronic pain. Pain overall controlled, continue pain regimen. 3. Anemia. Continue to monitor hemoglobin/hematocrit, stable on last labs. 4. Diabetes Mellitus type 2. Blood sugars controlled. Continue current management. 5. Hypertension. BP controlled. Internal medicine managing. 6. Coronary artery disease. Continue medical management per cardiology. Subjective 24 Hr Interval Summary Free Text/Dictation Rehab progress note Subjective: Reports currently minimal pain in back/lower extremities. ROS: Denies chest pain, no shortness of breath, no abdominal pain, no nausea or vomiting, no chills. Exam/Review of Systems Vital Signs Vitals Vital Signs Date Time Temp Pulse Resp B/P Pulse Ox O2 Delivery O2 Flow Rate FiO2 06/10/17 07:30 97.8 69 20 115/59 99 Intake and Output 06/09/17 06/09/17 06/10/17 15:00 23:00 07:00 Intake Total 800 ml 1080 ml Output Total 400 ml 400 ml Balance 400 ml 680 ml Exam General: Awake, alert, no acute distress, well developed CV: Regular rate, s1s2 Lungs: Clear to auscultation, no wheezing Abdomen soft, nontender, +bowel sounds Extremities nontender, no cyanosis, no distal edema Neuro: No focal changes. Follows simple commands. Results Result Diagram: 06/07/17 0647 06/07/17 0647 Results 24 hrs Laboratory Tests Test 06/09/17 17:22 06/09/17 20:41 06/10/17 07:44 Bedside Glucose 121 145 117 Medications Medications Current Medications Acetaminophen/ Hydrocodone Bitart ([place] (5/325)) 1 tab Q4H PRN PO PAIN LEVEL 1 -5 Last administered on 06/02/17 20:26; Admin Dose 1 TAB; Start 05/26/17 at 17: 57 Acetaminophen/ Hydrocodone Bitart ([place] (5/325)) 2 tab Q4H PRN PO PAIN LEVEL 6 -10 Last administered on 06/10/17 07:04; Admin Dose 2 TAB; Start 05/26/17 at 17 :57 Ondansetron HCl (Zofran Inj) 4 mg Q6H PRN IV NAUSEA AND/OR VOMITING; Start at 17:57 Acetaminophen (Tylenol Tab) 650 mg Q4H PRN PO TEMP GREATER THAN 101F/HAILE/PAIN; Start 05/26/17 at 17:57 Glucose (Glutose) 15 gm Q15M PRN PO DECREASED GLUCOSE; Start 05/26/17 at 17:57 Glucose (Glutose) 22.5 gm Q15M PRN PO DECREASED GLUCOSE; Start 05/26/17 at 17: 57 Dextrose (D50w Syringe) 25 ml Q15M PRN IV DECREASED GLUCOSE; Start 05/26/17 at 17:57 Dextrose (D50w Syringe) 50 ml Q15M PRN IV DECREASED GLUCOSE; Start 05/26/17 at 17:57 Glucagon (Glucagen) 1 mg Q15M PRN IM DECREASED GLUCOSE; Start 05/26/17 at 17:57 Glucose (Glutose) 15 gm Q15M PRN BUCCAL DECREASED GLUCOSE; Start 05/26/17 at 17 :57 Hydromorphone HCl (Dilaudid) 1 mg Q4H PRN IV PAIN Last administered on 04:32; Admin Dose 1 MG; Start 05/26/17 at 18:30 Docusate Sodium (Colace) 100 mg BID PO Last administered on 06/10/17 08:23; Admin Dose 100 MG; Start 05/29/17 at 21:00 Bisacodyl (Dulcolax Supp) 10 mg DAILY PRN [place] CONSTIPATION; Start 05/29/17 at 20 :30 Magnesium Hydroxide (Milk Of Mag) 30 ml BID PRN PO CONSTIPATION; Start at 20:30 Lactulose (Enulose) 20 gm DAILY PRN PO CONSTIPATION Last administered on 22:09; Admin Dose 20 GM; Start 05/29/17 at 20:30 Lorazepam (Ativan) 1 mg HS PRN PO SLEEP Last administered on 06/09/17 22:05; Admin Dose 1 MG; Start 05/29/17 at 22:30 Senna (Senokot) 2 tab HS PO Last administered on 06/09/17 20:35; Admin Dose 2 TAB; Start 06/04/17 at 21:00 Isosorbide Mononitrate (Imdur) 30 mg DAILY PO Last administered on 06/10/17 08 :24; Admin Dose 30 MG; Start 06/04/17 at 16:30 Aspirin (Aspirin) 81 mg DAILY PO Last administered on 06/10/17 08:23; Admin Dose 81 MG; Start 06/04/17 at 15:00 Clopidogrel Bisulfate (plaVIX) 75 mg DAILY PO Last administered on 06/10/17 08 :23; Admin Dose 75 MG; Start 06/04/17 at 15:00 Lisinopril (Zestril) 5 mg DAILY PO Last administered on 06/09/17 08:42; Admin Dose 5 MG; Start 06/09/17 at 09:00 Metoprolol Succinate (Toprol Xl) 25 mg BID PO Last administered on 06/10/17 08 :23; Admin Dose 25 MG; Start 06/08/17 at 21:00 GALINA MONTERO Jun 10, 2017 10:24
[2017-06-10 14:00] VITALS: BP 111/57; RESP 20
--- NOTE | 2017-06-10 14:46 | CONS ---
Date/Time of Note Date/Time of Note DATE: 06/10/17 TIME: 14:43 Assessment/Plan Assessment/Plan Additional Assessment/Plan ACS now resolved HTN s/p PTCA/stent Lumbar spinal stenosis s/p surgery Anaemia DM Clinically and hemodynamically stable Continue Imdur Continue Metoprolol Continue Lisinopril Continue ASA and Plavix Continue Insulin and metformin Consultation Date/Type/Reason Admit Date/Time May 26, 2017 at 17:11 Constitutional: improved, no complaints Eyes: No discharge, No no complaints, No other, No pain, No redness, No visual change ENT: No bleeding, No congestion, No discharge, No dysphagia, No no complaints, No other, No pain, No sore throat Respiratory: no complaints Cardiovascular: no complaints Gastrointestinal: no complaints Genitourinary: no complaints Musculoskeletal: back pain (mild, radiates down legs significantly when he is laying down and stretches out), No bone/joint pain Neurologic: no complaints Psychological: nl mood/affect, no complaints Past Surgical History Past Surgical Hx: other Social History Smoking Status: Former smoker Exam/Review of Systems Vital Signs Vitals Vital Signs Date Time Temp Pulse Resp B/P Pulse Ox O2 Delivery O2 Flow Rate FiO2 06/10/17 07:30 97.8 69 20 115/59 99 Intake and Output 06/09/17 06/09/17 06/10/17 15:00 23:00 07:00 Intake Total 800 ml 1080 ml Output Total 400 ml 400 ml Balance 400 ml 680 ml Exam Constitutional: alert Head: atraumatic, normocephalic Neck: non-tender, supple Respiratory: clear to auscultation Gastrointestinal: nl liver, spleen, non-tender, soft Extremities: normal pulses Results Result Diagram: 06/07/17 0647 06/07/17 0647 Results 24 hrs Laboratory Tests Test 06/09/17 17:22 06/09/17 20:41 06/10/17 07:44 Bedside Glucose 121 145 117 Medications Medications Current Medications Acetaminophen/ Hydrocodone Bitart ([place] (5/325)) 1 tab Q4H PRN PO PAIN LEVEL 1 -5 Last administered on 06/02/17t 20:26; Admin Dose 1 TAB; Start 05/26/17 at 17: 57 Acetaminophen/ Hydrocodone Bitart ([place] (5/325)) 2 tab Q4H PRN PO PAIN LEVEL 6 -10 Last administered on 06/10/17 07:04; Admin Dose 2 TAB; Start 05/26/17 at 17 :57 Ondansetron HCl (Zofran Inj) 4 mg Q6H PRN IV NAUSEA AND/OR VOMITING; Start at 17:57 Acetaminophen (Tylenol Tab) 650 mg Q4H PRN PO TEMP GREATER THAN 101F/HAILE/PAIN; Start 05/26/17 at 17:57 Glucose (Glutose) 15 gm Q15M PRN PO DECREASED GLUCOSE; Start 05/26/17 at 17:57 Glucose (Glutose) 22.5 gm Q15M PRN PO DECREASED GLUCOSE; Start 05/26/17 at 17: 57 Dextrose (D50w Syringe) 25 ml Q15M PRN IV DECREASED GLUCOSE; Start 05/26/17 at 17:57 Dextrose (D50w Syringe) 50 ml Q15M PRN IV DECREASED GLUCOSE; Start 05/26/17 at 17:57 Glucagon (Glucagen) 1 mg Q15M PRN IM DECREASED GLUCOSE; Start 05/26/17 at 17:57 Glucose (Glutose) 15 gm Q15M PRN BUCCAL DECREASED GLUCOSE; Start 05/26/17 at 17 :57 Hydromorphone HCl (Dilaudid) 1 mg Q4H PRN IV PAIN Last administered on 13:44; Admin Dose 1 MG; Start 05/26/17 at 18:30 Docusate Sodium (Colace) 100 mg BID PO Last administered on 06/10/17 08:23; Admin Dose 100 MG; Start 05/29/17 at 21:00 Bisacodyl (Dulcolax Supp) 10 mg DAILY PRN [place] CONSTIPATION; Start 05/29/17 at 20 :30 Magnesium Hydroxide (Milk Of Mag) 30 ml BID PRN PO CONSTIPATION; Start at 20:30 Lactulose (Enulose) 20 gm DAILY PRN PO CONSTIPATION Last administered on 22:09; Admin Dose 20 GM; Start 05/29/17 at 20:30 Lorazepam (Ativan) 1 mg HS PRN PO SLEEP Last administered on 06/09/17 22:05; Admin Dose 1 MG; Start 05/29/17 at 22:30 Senna (Senokot) 2 tab HS PO Last administered on 06/09/17 20:35; Admin Dose 2 TAB; Start 06/04/17 at 21:00 Isosorbide Mononitrate (Imdur) 30 mg DAILY PO Last administered on 06/10/17 08 :24; Admin Dose 30 MG; Start 06/04/17 at 16:30 Aspirin (Aspirin) 81 mg DAILY PO Last administered on 06/10/17 08:23; Admin Dose 81 MG; Start 06/04/17 at 15:00 Clopidogrel Bisulfate (plaVIX) 75 mg DAILY PO Last administered on 06/10/17 08 :23; Admin Dose 75 MG; Start 06/04/17 at 15:00 Lisinopril (Zestril) 5 mg DAILY PO Last administered on 06/09/17 08:42; Admin Dose 5 MG; Start 06/09/17 at 09:00 Metoprolol Succinate (Toprol Xl) 25 mg BID PO Last administered on 06/10/17 08 :23; Admin Dose 25 MG; Start 06/08/17 at 21:00 SAEID BELTRAN M.D. Jun 10, 2017 14:46
[2017-06-10] MEDS: PRAMIPEXOLE 0.125 MG TAB PO SCH (17:48)
[2017-06-10 19:33] VITALS: BP 118/60; RESP 20
[2017-06-10] MEDS: LACTULOSE 30ML CUP PO PRN (21:11)
[2017-06-10] MEDS: SENNA TAB PO SCH (21:12)
[2017-06-10] MEDS: LORAZEPAM 1 MG TAB PO PRN (21:13)
[2017-06-11 02:00] VITALS: BP 108/59; RESP 20
[2017-06-11] MEDS: HYDROmorphONE 1 MG/ML SYG IV PRN ×5 (03:02→23:42)
[2017-06-11] MEDS: ACCU-CHEK XX SCH ×2 (07:05→17:24)
[2017-06-11] MEDS: INSULIN ASPART [NOVOLOG] 3 ML PEN SC SCH ×2 (07:05→17:05)
--- NOTE | 2017-06-11 09:12 | PN ---
Date/Time of Note Date/Time of Note DATE: 06/11/17 TIME: 09:10 Assessment/Plan VTE Prophylaxis VTE Prophylaxis Intervention: SCD's, other Lines/Catheters IV Catheter Type (from Nrsg): Saline Lock Urinary Cath still in place: No Assessment/Plan Assessment/Plan 1. Lumbar spinal stenosis with neurogenic claudication, status post L4-5 bilateral laminectomy, medial facetectomy, and foraminotomy, with impaired mobility/gait/ADLs. Improved with PT/OT. Now modified independent for grooming, SPV for upper body dressing. 2. Acute post operative pain with underlying chronic pain syndrome. Pain stable and controlled. Continue pain regimen, wean off narcotics as able. 3. Anemia. Continue to monitor hemoglobin/hematocrit. 4. Diabetes Mellitus type 2. Blood sugars controlled with current management. 5. Hypertension. BP controlled. Continue current management. 6. Coronary artery disease. Continue medical management per cardiology. Subjective 24 Hr Interval Summary Free Text/Dictation Rehab progress note Subjective: No new complaints. Low back and lower extremity pain stable, alleviated with pain medication. ROS: Denies chest pain, no shortness of breath, no abdominal pain, no vomiting, no chills. Reports moving bowels better now. Exam/Review of Systems Vital Signs Vitals Vital Signs Date Time Temp Pulse Resp B/P Pulse Ox O2 Delivery O2 Flow Rate FiO2 06/11/17 02:00 97.9 20 108/59 99 06/10/17 19:33 83 Intake and Output 06/10/17 06/10/17 06/11/17 15:00 23:00 07:00 Intake Total 900 ml 500 ml Output Total 470 ml 1050 ml Balance 430 ml -550 ml Exam General: Awake, alert, no acute distress CV: Regular rate, s1s2 Lungs: Symmetrical air entry bilaterally, no wheezing Abdomen soft, nontender, +bowel sounds Extremities nontender, no cyanosis, no new swelling Neuro: No focal changes. Antigravity strength BUE/BLE. Follows simple commands. Results Result Diagram: 06/07/17 0647 06/07/17 0647 Results 24 hrs Laboratory Tests Test 06/10/17 17:31 06/11/17 07:44 Bedside Glucose 147 109 Medications Medications Current Medications Acetaminophen/ Hydrocodone Bitart ([place] (5/325)) 1 tab Q4H PRN PO PAIN LEVEL 1 -5 Last administered on 06/02/17 20:26; Admin Dose 1 TAB; Start 05/26/17 at 17: 57 Acetaminophen/ Hydrocodone Bitart ([place] (5/325)) 2 tab Q4H PRN PO PAIN LEVEL 6 -10 Last administered on 06/10/17 18:48; Admin Dose 2 TAB; Start 05/26/17 at 17 :57 Ondansetron HCl (Zofran Inj) 4 mg Q6H PRN IV NAUSEA AND/OR VOMITING; Start at 17:57 Acetaminophen (Tylenol Tab) 650 mg Q4H PRN PO TEMP GREATER THAN 101F/HAILE/PAIN; Start 05/26/17 at 17:57 Glucose (Glutose) 15 gm Q15M PRN PO DECREASED GLUCOSE; Start 05/26/17 at 17:57 Glucose (Glutose) 22.5 gm Q15M PRN PO DECREASED GLUCOSE; Start 05/26/17 at 17: 57 Dextrose (D50w Syringe) 25 ml Q15M PRN IV DECREASED GLUCOSE; Start 05/26/17 at 17:57 Dextrose (D50w Syringe) 50 ml Q15M PRN IV DECREASED GLUCOSE; Start 05/26/17 at 17:57 Glucagon (Glucagen) 1 mg Q15M PRN IM DECREASED GLUCOSE; Start 05/26/17 at 17:57 Glucose (Glutose) 15 gm Q15M PRN BUCCAL DECREASED GLUCOSE; Start 05/26/17 at 17 :57 Hydromorphone HCl (Dilaudid) 1 mg Q4H PRN IV PAIN Last administered on 07:11; Admin Dose 1 MG; Start 05/26/17 at 18:30 Docusate Sodium (Colace) 100 mg BID PO Last administered on 06/10/17 21:12; Admin Dose 100 MG; Start 05/29/17 at 21:00 Bisacodyl (Dulcolax Supp) 10 mg DAILY PRN [place] CONSTIPATION; Start 05/29/17 at 20 :30 Magnesium Hydroxide (Milk Of Mag) 30 ml BID PRN PO CONSTIPATION; Start at 20:30 Lactulose (Enulose) 20 gm DAILY PRN PO CONSTIPATION Last administered on 21:11; Admin Dose 20 GM; Start 05/29/17 at 20:30 Lorazepam (Ativan) 1 mg HS PRN PO SLEEP Last administered on 06/10/17 21:13; Admin Dose 1 MG; Start 05/29/17 at 22:30 Senna (Senokot) 2 tab HS PO Last administered on 06/10/17 21:12; Admin Dose 2 TAB; Start 06/04/17 at 21:00 Isosorbide Mononitrate (Imdur) 30 mg DAILY PO Last administered on 06/10/17 08 :24; Admin Dose 30 MG; Start 06/04/17 at 16:30 Aspirin (Aspirin) 81 mg DAILY PO Last administered on 06/10/17 08:23; Admin Dose 81 MG; Start 06/04/17 at 15:00 Clopidogrel Bisulfate (plaVIX) 75 mg DAILY PO Last administered on 06/10/17 08 :23; Admin Dose 75 MG; Start 06/04/17 at 15:00 Lisinopril (Zestril) 5 mg DAILY PO Last administered on 06/09/17 08:42; Admin Dose 5 MG; Start 06/09/17 at 09:00 Metoprolol Succinate (Toprol Xl) 25 mg BID PO Last administered on 06/10/17 21 :13; Admin Dose 25 MG; Start 06/08/17 at 21:00 GALINA MONTERO Jun 11, 2017 09:12
[2017-06-11] MEDS: DOCUSATE SODIUM 100 MG CAP PO SCH ×2 (09:21→20:35)
[2017-06-11] MEDS: ASPIRIN 81 MG TAB PO SCH (09:21)
[2017-06-11] MEDS: CLOPIDOGREL 75 MG TAB PO SCH (09:22)
[2017-06-11] MEDS: ISOSORBIDE MONONITRATE(SR)30 MG TAB PO SCH (09:22)
[2017-06-11] MEDS: LISINOPRIL 5 MG TAB PO SCH (09:25)
[2017-06-11] MEDS: METOPROLOL (XL) 25 MG TAB PO SCH ×2 (09:25→20:37)
[2017-06-11] MEDS: metFORMIN 500 MG TAB PO SCH ×2 (09:30→17:25)
[2017-06-11] MEDS: PRAMIPEXOLE 0.125 MG TAB PO SCH (18:08)
[2017-06-11 20:00] VITALS: BP 114/55; RESP 18
[2017-06-11] MEDS: SENNA TAB PO SCH (20:35)
[2017-06-11] MEDS: LORAZEPAM 1 MG TAB PO PRN (22:02)
--- NOTE | 2017-06-12 00:09 | PN ---
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 DISCUSSION TO BE HAD BY ARU IF PATIENT SAFE AND STEADY ENOUGH FOR DISCHARGE HOME IN AM Subjective 24 Hr Interval Summary Free Text/Dictation HAVING DIFFICULTY GETTING UP AND OUT OF BED BUT OTHERWISE FEELS FINE Exam/Review of Systems Vital Signs Vitals Vital Signs Date Time Temp Pulse Resp B/P Pulse Ox O2 Delivery O2 Flow Rate FiO2 06/11/17 20:00 97.8 74 18 114/55 98 Intake and Output 06/11/17 06/11/17 06/12/17 15:00 23:00 07:00 Intake Total 500 ml 515 ml Output Total 200 ml 750 ml Balance 300 ml -235 ml Exam Constitutional: alert, oriented, well developed Psych: no complaints Eyes: EOMI, PERRL, nl conjunctiva Neck: supple Cardiovascular: regular rate and rhythm Musculoskeletal: nl extremities to inspection Extremities: normal pulses Results LABS AND POC GLUCOSE REVIEWED Results 24 hrs Laboratory Tests Test 06/11/17 07:44 06/11/17 17:17 06/11/17 17:19 Bedside Glucose 109 146 135 Medications Medications Current Medications Acetaminophen/ Hydrocodone Bitart ([place] (5/325)) 1 tab Q4H PRN PO PAIN LEVEL 1 -5 Last administered on 06/02/17 20:26; Admin Dose 1 TAB; Start 05/26/17 at 17: 57 Acetaminophen/ Hydrocodone Bitart ([place] (5/325)) 2 tab Q4H PRN PO PAIN LEVEL 6 -10 Last administered on 06/10/17 18:48; Admin Dose 2 TAB; Start 05/26/17 at 17 :57 Ondansetron HCl (Zofran Inj) 4 mg Q6H PRN IV NAUSEA AND/OR VOMITING; Start at 17:57 Acetaminophen (Tylenol Tab) 650 mg Q4H PRN PO TEMP GREATER THAN 101F/HAILE/PAIN; Start 05/26/17 at 17:57 Glucose (Glutose) 15 gm Q15M PRN PO DECREASED GLUCOSE; Start 05/26/17 at 17:57 Glucose (Glutose) 22.5 gm Q15M PRN PO DECREASED GLUCOSE; Start 05/26/17 at 17: 57 Dextrose (D50w Syringe) 25 ml Q15M PRN IV DECREASED GLUCOSE; Start 05/26/17 at 17:57 Dextrose (D50w Syringe) 50 ml Q15M PRN IV DECREASED GLUCOSE; Start 05/26/17 at 17:57 Glucagon (Glucagen) 1 mg Q15M PRN IM DECREASED GLUCOSE; Start 05/26/17 at 17:57 Glucose (Glutose) 15 gm Q15M PRN BUCCAL DECREASED GLUCOSE; Start 05/26/17 at 17 :57 Hydromorphone HCl (Dilaudid) 1 mg Q4H PRN IV PAIN Last administered on 23:42; Admin Dose 1 MG; Start 05/26/17 at 18:30 Docusate Sodium (Colace) 100 mg BID PO Last administered on 06/11/17 20:35; Admin Dose 100 MG; Start 05/29/17 at 21:00 Bisacodyl (Dulcolax Supp) 10 mg DAILY PRN [place] CONSTIPATION; Start 05/29/17 at 20 :30 Magnesium Hydroxide (Milk Of Mag) 30 ml BID PRN PO CONSTIPATION; Start at 20:30 Lactulose (Enulose) 20 gm DAILY PRN PO CONSTIPATION Last administered on 21:11; Admin Dose 20 GM; Start 05/29/17 at 20:30 Lorazepam (Ativan) 1 mg HS PRN PO SLEEP Last administered on 06/11/17 22:02; Admin Dose 1 MG; Start 05/29/17 at 22:30 Senna (Senokot) 2 tab HS PO Last administered on 06/11/17 20:35; Admin Dose 2 TAB; Start 06/04/17 at 21:00 Isosorbide Mononitrate (Imdur) 30 mg DAILY PO Last administered on 06/11/17 09 :22; Admin Dose 30 MG; Start 06/04/17 at 16:30 Aspirin (Aspirin) 81 mg DAILY PO Last administered on 06/11/17 09:21; Admin Dose 81 MG; Start 06/04/17 at 15:00 Clopidogrel Bisulfate (plaVIX) 75 mg DAILY PO Last administered on 06/11/17 09 :22; Admin Dose 75 MG; Start 06/04/17 at 15:00 Lisinopril (Zestril) 5 mg DAILY PO Last administered on 06/11/17 09:25; Admin Dose 5 MG; Start 06/09/17 at 09:00 Metoprolol Succinate (Toprol Xl) 25 mg BID PO Last administered on 06/11/17 20 :37; Admin Dose 25 MG; Start 06/08/17 at 21:00 MARIANO MELARA MD Jun 12, 2017 00:09
--- NOTE | 2017-06-12 00:13 | PN ---
Date/Time of Note Date/Time of Note LATE ENTRY PATIENT SEEN 06/10/2017 @ 15:00 DATE: 06/12/17 TIME: 00:09 Assessment/Plan VTE Prophylaxis VTE Prophylaxis Intervention: ambulation Lines/Catheters IV Catheter Type (from Nrsg): Saline Lock Central line still needed: No Urinary Cath still in place: No Assessment/Plan Problems: (1) Type 2 diabetes mellitus without complications Status: Chronic Qualifiers: Diabetes mellitus [facility] insulin use: without exterminator use Qualified Code: E11.9 - Type 2 diabetes mellitus without complication, without long-term current use of insulin (2) Essential (primary) hypertension Status: Chronic (3) Aftercare following surgery of the musculoskeletal system Status: Acute (4) Lumbar spinal stenosis Status: Resolved Assessment/Plan CONTINUE ARU RECOMMENDATIONS. POSSIBLE D/C HOME Monday06/12/2017 Subjective 24 Hr Interval Summary Free Text/Dictation DENIES COMPLAINTS AT THIS TIME Exam/Review of Systems Vital Signs Vitals Vital Signs Date Time Temp Pulse Resp B/P Pulse Ox O2 Delivery O2 Flow Rate FiO2 06/11/17 20:00 97.8 74 18 114/55 98 Intake and Output 06/11/17 06/11/17 06/12/17 15:00 23:00 07:00 Intake Total 500 ml 515 ml Output Total 200 ml 750 ml Balance 300 ml -235 ml Exam Constitutional: alert, oriented Psych: no complaints Eyes: EOMI, PERRL Neck: supple Respiratory: clear to auscultation Cardiovascular: regular rate and rhythm Gastrointestinal: soft Musculoskeletal: nl extremities to inspection Extremities: normal pulses Results Results 24 hrs Laboratory Tests Test 06/11/17 07:44 06/11/17 17:17 06/11/17 17:19 Bedside Glucose 109 146 135 Medications Medications Current Medications Acetaminophen/ Hydrocodone Bitart ([place] (5/325)) 1 tab Q4H PRN PO PAIN LEVEL 1 -5 Last administered on 06/02/17 20:26; Admin Dose 1 TAB; Start 05/26/17 at 17: 57 Acetaminophen/ Hydrocodone Bitart ([place] (5/325)) 2 tab Q4H PRN PO PAIN LEVEL 6 -10 Last administered on 06/10/17 18:48; Admin Dose 2 TAB; Start 05/26/17 at 17 :57 Ondansetron HCl (Zofran Inj) 4 mg Q6H PRN IV NAUSEA AND/OR VOMITING; Start at 17:57 Acetaminophen (Tylenol Tab) 650 mg Q4H PRN PO TEMP GREATER THAN 101F/HAILE/PAIN; Start 05/26/17 at 17:57 Glucose (Glutose) 15 gm Q15M PRN PO DECREASED GLUCOSE; Start 05/26/17 at 17:57 Glucose (Glutose) 22.5 gm Q15M PRN PO DECREASED GLUCOSE; Start 05/26/17 at 17: 57 Dextrose (D50w Syringe) 25 ml Q15M PRN IV DECREASED GLUCOSE; Start 05/26/17 at 17:57 Dextrose (D50w Syringe) 50 ml Q15M PRN IV DECREASED GLUCOSE; Start 05/26/17 at 17:57 Glucagon (Glucagen) 1 mg Q15M PRN IM DECREASED GLUCOSE; Start 05/26/17 at 17:57 Glucose (Glutose) 15 gm Q15M PRN BUCCAL DECREASED GLUCOSE; Start 05/26/17 at 17 :57 Hydromorphone HCl (Dilaudid) 1 mg Q4H PRN IV PAIN Last administered on 23:42; Admin Dose 1 MG; Start 05/26/17 at 18:30 Docusate Sodium (Colace) 100 mg BID PO Last administered on 06/11/17 20:35; Admin Dose 100 MG; Start 05/29/17 at 21:00 Bisacodyl (Dulcolax Supp) 10 mg DAILY PRN [place] CONSTIPATION; Start 05/29/17 at 20 :30 Magnesium Hydroxide (Milk Of Mag) 30 ml BID PRN PO CONSTIPATION; Start at 20:30 Lactulose (Enulose) 20 gm DAILY PRN PO CONSTIPATION Last administered on 21:11; Admin Dose 20 GM; Start 05/29/17 at 20:30 Lorazepam (Ativan) 1 mg HS PRN PO SLEEP Last administered on 06/11/17 22:02; Admin Dose 1 MG; Start 05/29/17 at 22:30 Senna (Senokot) 2 tab HS PO Last administered on 06/11/17 20:35; Admin Dose 2 TAB; Start 06/04/17 at 21:00 Isosorbide Mononitrate (Imdur) 30 mg DAILY PO Last administered on 06/11/17 09 :22; Admin Dose 30 MG; Start 06/04/17 at 16:30 Aspirin (Aspirin) 81 mg DAILY PO Last administered on 06/11/17 09:21; Admin Dose 81 MG; Start 06/04/17 at 15:00 Clopidogrel Bisulfate (plaVIX) 75 mg DAILY PO Last administered on 06/11/17 09 :22; Admin Dose 75 MG; Start 06/04/17 at 15:00 Lisinopril (Zestril) 5 mg DAILY PO Last administered on 06/11/17 09:25; Admin Dose 5 MG; Start 06/09/17 at 09:00 Metoprolol Succinate (Toprol Xl) 25 mg BID PO Last administered on 06/11/17 20 :37; Admin Dose 25 MG; Start 06/08/17 at 21:00 MARIANO MELARA MD Jun 12, 2017 00:12
[2017-06-12 02:00] VITALS: BP 115/61; RESP 18
[2017-06-12] MEDS: HYDROmorphONE 1 MG/ML SYG IV PRN ×2 (04:13→08:24)
[2017-06-12] MEDS: ACCU-CHEK XX SCH (07:05)
[2017-06-12] MEDS: INSULIN ASPART [NOVOLOG] 3 ML PEN SC SCH (07:05)
[2017-06-12 07:30] VITALS: BP 144/65; RESP 20
[2017-06-12] MEDS: LISINOPRIL 5 MG TAB PO SCH (08:24)
[2017-06-12] MEDS: METOPROLOL (XL) 25 MG TAB PO SCH (08:25)
[2017-06-12] MEDS: CLOPIDOGREL 75 MG TAB PO SCH (08:25)
[2017-06-12] MEDS: DOCUSATE SODIUM 100 MG CAP PO SCH (08:26)
[2017-06-12] MEDS: ISOSORBIDE MONONITRATE(SR)30 MG TAB PO SCH (08:26)
[2017-06-12] MEDS: ASPIRIN 81 MG TAB PO SCH (08:26)
[2017-06-12] MEDS: metFORMIN 500 MG TAB PO SCH (08:26)
--- NOTE | 2017-06-12 13:26 | CONS ---
Date/Time of Note Date/Time of Note DATE: 06/12/17 TIME: 13:26 Consult Date/Type/Reason Admit Date/Time May 26, 2017 at 17:11 Type of Consultation: cardiology Ordering Provider: NOREEN LINDSAY MD Objective Vital Signs Date Time Temp Pulse Resp B/P Pulse Ox O2 Delivery O2 Flow Rate FiO2 06/12/17 07:30 97.9 69 20 144/65 98 Intake and Output 06/11/17 06/11/17 06/12/17 14:59 22:59 06:59 Intake Total 500 ml 515 ml Output Total 200 ml 750 ml 450 ml Balance 300 ml -235 ml -450 ml INTERDISCIPLINARY TEAM CONFERENCE BOWEL- Cont BLADDER-Cont SKIN- intact OT- DRESSING-s BATHING-s TOILETING-s PT- BED MOBILITY-s TRANSFERS-s AMBULATION-sba 150 feet A/P- Interdisciplinary team conference held today. Please see interdisciplinary sheet. DC today with post discharge follow up of physical therapy, occupational therapy. Results/Medications Results 24 hrs Laboratory Tests Test 06/11/17 17:17 06/11/17 17:19 06/12/17 07:50 Bedside Glucose 146 135 131 Medications Current Medications Acetaminophen/ Hydrocodone Bitart ([place] (5/325)) 1 tab Q4H PRN PO PAIN LEVEL 1 -5 Last administered on 06/02/17 20:26; Admin Dose 1 TAB; Start 05/26/17 at 17: 57 Acetaminophen/ Hydrocodone Bitart ([place] (5/325)) 2 tab Q4H PRN PO PAIN LEVEL 6 -10 Last administered on 06/10/17 18:48; Admin Dose 2 TAB; Start 05/26/17 at 17 :57 Ondansetron HCl (Zofran Inj) 4 mg Q6H PRN IV NAUSEA AND/OR VOMITING; Start at 17:57 Acetaminophen (Tylenol Tab) 650 mg Q4H PRN PO TEMP GREATER THAN 101F/HAILE/PAIN; Start 05/26/17 at 17:57 Glucose (Glutose) 15 gm Q15M PRN PO DECREASED GLUCOSE; Start 05/26/17 at 17:57 Glucose (Glutose) 22.5 gm Q15M PRN PO DECREASED GLUCOSE; Start 05/26/17 at 17: 57 Dextrose (D50w Syringe) 25 ml Q15M PRN IV DECREASED GLUCOSE; Start 05/26/17 at 17:57 Dextrose (D50w Syringe) 50 ml Q15M PRN IV DECREASED GLUCOSE; Start 05/26/17 at 17:57 Glucagon (Glucagen) 1 mg Q15M PRN IM DECREASED GLUCOSE; Start 05/26/17 at 17:57 Glucose (Glutose) 15 gm Q15M PRN BUCCAL DECREASED GLUCOSE; Start 05/26/17 at 17 :57 Hydromorphone HCl (Dilaudid) 1 mg Q4H PRN IV PAIN Last administered on 08:24; Admin Dose 1 MG; Start 05/26/17 at 18:30 Docusate Sodium (Colace) 100 mg BID PO Last administered on 06/12/17 08:26; Admin Dose 100 MG; Start 05/29/17 at 21:00 Bisacodyl (Dulcolax Supp) 10 mg DAILY PRN [place] CONSTIPATION; Start 05/29/17 at 20 :30 Magnesium Hydroxide (Milk Of Mag) 30 ml BID PRN PO CONSTIPATION; Start at 20:30 Lactulose (Enulose) 20 gm DAILY PRN PO CONSTIPATION Last administered on 21:11; Admin Dose 20 GM; Start 05/29/17 at 20:30 Lorazepam (Ativan) 1 mg HS PRN PO SLEEP Last administered on 06/11/17 22:02; Admin Dose 1 MG; Start 05/29/17 at 22:30 Senna (Senokot) 2 tab HS PO Last administered on 06/11/17 20:35; Admin Dose 2 TAB; Start 06/04/17 at 21:00 Isosorbide Mononitrate (Imdur) 30 mg DAILY PO Last administered on 06/12/17 08 :26; Admin Dose 30 MG; Start 06/04/17 at 16:30 Aspirin (Aspirin) 81 mg DAILY PO Last administered on 06/12/17 08:26; Admin Dose 81 MG; Start 06/04/17 at 15:00 Clopidogrel Bisulfate (plaVIX) 75 mg DAILY PO Last administered on 06/12/17 08 :25; Admin Dose 75 MG; Start 06/04/17 at 15:00 Lisinopril (Zestril) 5 mg DAILY PO Last administered on 06/12/17 08:24; Admin Dose 5 MG; Start 06/09/17 at 09:00 Metoprolol Succinate (Toprol Xl) 25 mg BID PO Last administered on 06/12/17 08 :25; Admin Dose 25 MG; Start 06/08/17 at 21:00 CHANTELLE YO MD Jun 12, 2017 13:26
== END 2017-06-12 13:00 | disposition home health service (06) | DRG 561 ==
LOC: VRC 17:11
PROVIDERS: ADMIT Physical Medicine & Rehabilitation; ATTEND Internal Medicine
DX: Z47.89 Encounter for other orthopedic aftercare (principal); E11.8 Type 2 diabetes mellitus with unspecified complications; K70.9 Alcoholic liver disease, unspecified; D64.9 Anemia, unspecified; I10 Essential (primary) hypertension; D72.829 Elevated white blood cell count, unspecified; G25.81 Restless legs syndrome; F10.21 Alcohol dependence, in remission; Z87.891 Personal history of nicotine dependence; Z87.898 Personal history of other specified conditions; G89.18 Other acute postprocedural pain; G89.29 Other chronic pain; R07.9 Chest pain, unspecified; I25.10 Atherosclerotic heart disease of native coronary artery without angina pectoris; R06.02 Shortness of breath; Z95.5 Presence of coronary angioplasty implant and graft
CPT/HCPCS: 71010; 78452; 80048; 80053; 82962; 83735; 84484; 85025; 87081; 87086; 93005; 93017; 93306; 97110; 97112; 97116; 97150; 97162; 97166; 97530; 97535; 97542; A9500; A9505; J1170; J1815; J2785; L1820